=== PATIENT | female | born 1945 | race Caucasian/White ===

== ENCOUNTER 2022-05-19 10:08 | Emergency (ER) | payer MEDICARE, BC, SELFPAY ==
[2022-05-19 10:15] VITALS: BP 155/91; PULSE 81; RESP 20; TEMP 36.6; O2SAT 95; BMI 25.6
--- NOTE | 2022-05-19 10:27 | ED.GENADULT ---
HPI - General Adult General Time Seen by Provider: 10:29 Date Seen: 05/19/22 Chief complaint: GI Bleed Stated complaint: rectal bleeding from colonoscopy Time Seen by Provider: 05/19/22 10:27 Source: patient Mode of arrival: ambulatory Limitations: no limitations History of Present Illness HPI narrative: 76-year-old female who comes in today with rectal bleeding after colonoscopy. She had a colonoscopy 9 days ago and had some polyps removed. Was doing well until this morning when she passed a stool with some blood. This was formed stool with blood on the outside and some blood on the toilet paper. She also some left lower quadrant abdominal pain. She is not on any blood thinners, denies lightheadedness or dizziness and otherwise is feeling well. Related Data Home Medications Medication Instructions Recorded Confirmed amlodipine 5 mg tablet 5 mg PO DAILY 05/19/22 05/19/22 aspirin 81 mg chewable tablet 81 mg PO DAILY 05/19/22 05/19/22 (Aspirin Childrens) lisinopril 20 mg tablet 20 mg PO DAILY 05/19/22 05/19/22 Allergies Allergy/AdvReac Type Severity Reaction Status Date / Time erythromycin base Allergy Verified 05/19/22 10:20 [From Erythrocin] latex Allergy Verified 05/19/22 10:20 Review of Systems Status of ROS: Reports: 10 or more systems reviewed and unremarkable except as noted in History and below PFSH PFS Social History Smoking Status: Current every day smoker What tobacco products do you use: cigarettes Do you use any of these nicotine containing products: None Second hand tobacco smoke exposure: No How often do you have a drink containing alcohol: 4 or more times a week How many standard drinks containing alcohol do you have on a typical day: 1 or 2 How often do you have six or more drinks on one occasion: Never AUDIT-C Alcohol total score: 4 Non-prescribed substance use: denies use Exam Narrative: Exam Narrative: General: Well-developed and well-nourished, no acute distress Head: Atraumatic and normocephalic Eyes: Pupils are equal reactive, extraocular motions intact, conjunctiva clear ENT: External nose and ears are normal, posterior pharynx without erythema or exudate Neck: No midline cervical tenderness, full spontaneous range of motion the neck, trachea midline, no adenopathy Heart: Regular rate and rhythm no murmurs or thrills Lungs: Clear to auscultation bilaterally without wheezes or crackles Abdomen: Soft, mild left lower quadrant tenderness, nondistended with active bowel sounds Musculoskeletal: No tenderness, deformity, or edema Neurologic: Awake, alert, and oriented x3, no gross focal neurologic deficits, cranial nerves intact as tested Psych: Mood and affect are appropriate Skin: No rashes Const: Vital Signs, click to edit/add: Vital Signs - 24 hr 05/19/22 10:15 05/19/22 11:07 Temperature 97.8 F Pulse Rate [Pulse Oximeter] 81 68 Respiratory Rate 20 20 Blood Pressure [Ri ght Upper Arm] 155/91 H 150/81 H Pulse Oximetry 95 97 Oxygen Delivery Me thod Room Air Room Air Documenting provider has reviewed patient's vital signs: yes Course Course Hospital Course: Patient seen and examined, prior records are reviewed. Patient presents with left lower quadrant pain and an episode of blood in the stools. She has vital is stable, no lightheadedness or dizziness, no chest pain or shortness of breath to suggest anemia, CBC is ordered to evaluate. She does have some mild left lower quadrant tenderness, colitis or diverticulitis possible. Pain is not out of proportion, ischemic colitis is unlikely. Given that her polypectomy was over week ago, postoperative bleeding has little bit less likely as well. Labs and CTA are ordered to evaluate for source of bleeding. If labs are reassuring and no active blush on CTA, patient likely can be discharged expectant management and follow-up. Reevaluation(s) Reevaluation #1: Labs are reassuring including normal hemoglobin and normal white blood cell count parents CT scan demonstrates some colitis which is consistent with patient's symptoms. Given recent colonoscopy, the wall thickening of the rectum is unlikely to represent mass and is most consistent with infectious or inflammatory colitis. With recent instrumentation, patient will be started on antibiotics and close follow-up. Time: 13:31 Vital Signs Vital signs: Initial Vital Signs Temperature 97.8 F 05/19/22 10:15 Temperature Source Temporal Artery Scan 05/19/22 10:15 Pulse Rate 81 05/19/22 10:15 Respiratory Rate 20 05/19/22 10:15 Blood Pressure 155/91 H 05/19/22 10:15 Blood Pressure Mean 112 05/19/22 10:15 Blood Pressure Position Sitting 05/19/22 10:15 Pulse Oximetry 95 05/19/22 10:15 Oxygen Delivery Method 05/19/22 10:15 Vital Signs Temperature 97.8 F 05/19/22 10:15 Pulse Rate 81 05/19/22 10:15 Respiratory Rate 20 05/19/22 10:15 Blood Pressure 155/91 H 05/19/22 10:15 Pulse Oximetry 95 05/19/22 10:15 Oxygen Delivery Method 05/19/22 10:15 Temperature 97.8 F 05/19/22 10:15 Pulse Rate 68 05/19/22 11:07 Respiratory Rate 20 05/19/22 11:07 Blood Pressure 150/81 H 05/19/22 11:07 Pulse Oximetry 97 05/19/22 11:07 Oxygen Delivery Method 05/19/22 11:07 Medical Decision Making Medical Records Medical records reviewed: Yes I reviewed the patient's medical records Lab Data Lab results reviewed: Yes I reviewed the patient's lab results Labs: Lab Results 05/19/22 05/19/22 Range/Units 10:55 10:55 WBC 5.53 (4.50-11.00) K/uL RBC 4.50 (4.00-5.20) m/uL Hgb 14.9 (12.0-16.0) gm/dL Hct 44.7 (33.0-51.0) % MCV 99 (80-100) fL MCH 33 (26-34) pg MCHC 33 (32-36) gm/dL RDW Coeff of Betsy 12.2 (11.5-15.5) % Plt Count 265 (140-440) K/uL Neut % (Auto) 55.3 (42.0-72.0) % Lymph % (Auto) 30.6 (20-44) % [place] % (Auto) 12.8 H (0.0-11.0) % Eos % (Auto) 0.9 (0.0-7.0) % Baso % (Auto) 0.2 (0.0-3.0) % Neut # (Auto) 3.06 (1.7-7.0) K/uL Lymph # (Auto) 1.69 (0.90-2.90) K/uL [place] # (Auto) 0.70 (0.00-0.90) K/UL Eos # (Auto) 0.05 (0.00-0.50) K/uL Baso # (Auto) 0.01 (0.00-0.30) K/uL Abs Immat Gran (auto) 0.01 (0.00-0.30) K/uL Imm/Tot Granulo (auto) 0.2 % Sodium 130 L (135-149) mmol/L Potassium 4.2 (3.6-5.1) mmol/L Chloride 95 L (96-114) mmol/L Carbon Dioxide 28 (20-32) mmol/L BUN 12 (7-30) mg/dL Creatinine 0.5 (0.5-1.5) mg/dL Estimated Creat Clear 38.44 Estimated GFR 98 ml/min Glucose 96 (60-115) mg/dL Calcium 9.0 (8.4-10.6) mg/dL Imaging Data CT scan - abdomen: Attestation: I have reviewed the pertinent imaging results. Radiologist's impression: IMPRESSION: 1. Circumferential wall thickening of the rectum could be inflammatory versus underlying mass. Correlate with colonoscopy. 2. No other evidence of bowel inflammation or active bleeding. Colonic diverticulosis without diverticulitis. 3. Diffuse hepatic steatosis. Discharge Plan Discharge Clinical Impression: Colitis Patient Disposition: Home, Self-Care Condition: Stable Instructions: Colitis (ED) Additional Instructions: You may continue to have some blood in the stools for the next couple of days. If you develop fever, increased pain, or blood without formed stools, return to the emergency department. Take antibiotics as prescribed follow-up with your primary care doctor next week Activity Level: No Restrictions Discharge Diet: Regular Prescriptions: No Action amlodipine 5 mg tablet 5 mg PO DAILY lisinopril 20 mg tablet 20 mg PO DAILY aspirin [Aspirin Childrens] 81 mg tablet,chewable 81 mg PO DAILY Stand Alone Forms: [facility] Info Instructions
--- NOTE | 2022-05-19 10:45 | CRLHL7_ITS ---
For Patients: As a result of the Century Cures Act, medical imaging exams and procedure reports are released immediately into your electronic medical record. You may view this report before your referring provider. If you have questions, please contact your health care provider. INDICATION: Left lower quadrant pain, GI bleed, recent colonoscopy. TECHNIQUE: CT of the abdomen and pelvis acquired without and with 95 cc Isovue 370 IV contrast including arterial and portal venous phases according to the GI bleed protocol. Coronal and sagittal reconstructions. COMPARISON: None. FINDINGS: Diffuse hepatic steatosis. The gallbladder, spleen, pancreas, and adrenal glands are negative. No biliary dilation. Hepatic and portal veins are patent. Symmetric enhancement of the kidneys. Small right renal cyst. Tiny low-attenuation lesion in the lower pole of the left kidney is too small to characterize. No hydronephrosis or ureteral dilation. No obstructing urinary calculi identified. The bladder and uterus are normal in appearance. No adnexal mass. There is a 1.8 cm right sided vaginal cyst (series 9, image 128). No small bowel dilation. Moderate amount of stool throughout the colon. Colonic diverticulosis without evidence of diverticulitis. Negative appendix. Circumferential wall thickening of the rectum. No evidence of intraluminal blood products, active extravasation, or pneumatosis. No intraperitoneal free air or fluid. Tiny fat containing umbilical hernia. Aortoiliac vascular calcifications. No lymphadenopathy. Chronic appearing superior endplate compression fracture of L2. The lung bases are clear. IMPRESSION: 1. Circumferential wall thickening of the rectum could be inflammatory versus underlying mass. Correlate with colonoscopy. 2. No other evidence of bowel inflammation or active bleeding. Colonic diverticulosis without diverticulitis. 3. Diffuse hepatic steatosis. Please note that all CT scans at this facility use dose modulation, iterative reconstruction, and/or weight-based dosing when appropriate to reduce radiation dose to as low as reasonably achievable. Dictated by Lina Pathak MD @ 05/19/2022 1:08:02 PM (Electronically Signed)
[2022-05-19 11:03] LABS: Basophils Absolute Auto 0.01 K/uL (0.00-0.30); Basophils Percent Auto 0.2 % (0.0-3.0); Eosinophils Absolute Auto 0.05 K/uL (0.00-0.50); Eosinophils Percent Auto 0.9 % (0.0-7.0); Hematocrit 44.7 % (33.0-51.0); Hemoglobin* 14.9 gm/dL (12.0-16.0); Immature Granulocytes Abs Auto 0.01 K/uL (0.00-0.30); Immature Granulocytes Pct Auto 0.2 %; Lymphocytes Absolute Auto 1.69 K/uL (0.90-2.90); Lymphocytes Percent Auto 30.6 % (20-44); Mean Corpuscular HGB Conc 33 gm/dL (32-36); Mean Corpuscular Hemoglobin 33 pg (26-34); Mean Corpuscular Volume 99 fL (80-100); Monocytes Percent Auto 12.8 % (0.0-11.0); Neutrophils Absolute Auto 3.06 K/uL (1.7-7.0); Neutrophils Percent Auto 55.3 % (42.0-72.0); Platelet Count* 265 K/uL (140-440); RDW Coefficient of Variation % 12.2 % (11.5-15.5); White Blood Count* 5.53 K/uL (4.50-11.00)
[2022-05-19 11:07] VITALS: BP 150/81; PULSE 68; RESP 20; O2SAT 97
[2022-05-19 11:20] LABS: Slide Review Reflex No
[2022-05-19 11:34] LABS: Chloride* 95 mmol/L (96-114)
[2022-05-19 11:35] LABS: Potassium* 4.2 mmol/L (3.6-5.1); Sodium* 130 mmol/L (135-149)
[2022-05-19 11:37] LABS: Creatinine* 0.5 mg/dL (0.5-1.5); Est. Creatinine Clearance* 38.44; Estimated Glomerular Filt Rate 98 ml/min
[2022-05-19 11:38] LABS: Blood Urea Nitrogen* 12 mg/dL (7-30); Carbon Dioxide* 28 mmol/L (20-32); Glucose* 96 mg/dL (60-115)
[2022-05-19] MEDS: 0.9 % SODIUM CHLORIDE 500 ML 500 ML IV (12:32)
[2022-05-19 13:34] VITALS: BP 135/81; PULSE 72; RESP 18; TEMP 37; O2SAT 97
== END 2022-05-19 13:50 | disposition home or self-care (01) ==
PROVIDERS: Emergency Provider Family Medicine; PCP Family Medicine
DX: K52.9 Noninfective gastroenteritis and colitis, unspecified (principal)
CPT/HCPCS: 36415; 74178; 80048; 85025; 99284; J7120; Q9967

== ENCOUNTER 2022-10-16 18:37 | Emergency (ER) | payer MEDICARE, BC, SELFPAY ==
[2022-10-16 18:43] VITALS: BP 136/81; PULSE 69; RESP 18; TEMP 36; O2SAT 96; BMI 24.8
--- NOTE | 2022-10-16 19:27 | ED_ITS ---
HPI - General Adult General Chief complaint: Back Injury/Pain Stated complaint: Back and flank pain Time Seen by Provider: 10/16/22 19:15 History of Present Illness HPI narrative: This 77-year-old female comes in reporting low back pain for the past week or so. She states that she was bending over to clean the toilet and began to feel some tightness. This pain became more evident the next day and has persisted and somewhat worsened since then. She reports pain across her low back and a bit into her buttocks but not radiating down into her legs. She also reports some low abdominal pain and is suspicious of dysuria symptoms and possible urinary tract infection. She does not report any fevers, nausea, vomiting, or diarrhea. Related Data Home Medications Medication Instructions Recorded Confirmed amlodipine 5 mg tablet 5 mg PO DAILY 05/19/22 10/16/22 aspirin 81 mg chewable tablet 81 mg PO DAILY 05/19/22 10/16/22 (Aspirin Childrens) lisinopril 20 mg tablet 20 mg PO DAILY 05/19/22 10/16/22 Previous Rx's Medication Instructions Recorded cephalexin 500 mg capsule 500 mg PO TID 7 days #21 caps 10/16/22 tramadol 50 mg tablet 50 mg PO Q6H PRN pain #15 tabs 10/16/22 Allergies Allergy/AdvReac Type Severity Reaction Status Date / Time erythromycin base Allergy Verified 10/16/22 18:51 [From Erythrocin] latex Allergy Verified 10/16/22 18:51 Review of Systems Status of ROS: Reports: 10 or more systems reviewed and unremarkable except as noted in History and below Narrative: Constitutional: No fevers, no weight gain or loss. Eyes: No discharge. No vision changes. HENT: No congestion, no sore throat, no ear pain. Cardiovascular: No chest pain, no palpitations. Respiratory: No shortness of breath, no wheezes, no cough. Gastrointestinal: No vomiting, no diarrhea. Lower abdominal pain that is not present when remaining still but occurs with bending forward and when pressing in her lower abdomen. Genitourinary: No hematuria. Musculoskeletal: Normal range of motion. Pain across her low back as described above. Skin: No rashes, no pruritis. Neurological: No dizziness, weakness, sensory change, speech change. Endo/Heme/Allergies: No bruising or bleeding. No polydipsia. Pysch: no suicidality, no anxiety, no insomnia. All other systems reviewed and are negative. PFSH PFS Social History Smoking Status: Current every day smoker What tobacco products do you use: cigarettes Do you use any of these nicotine containing products: None Second hand tobacco smoke exposure: No How often do you have a drink containing alcohol: 4 or more times a week How many standard drinks containing alcohol do you have on a typical day: 1 or 2 How often do you have six or more drinks on one occasion: Never AUDIT-C Alcohol total score: 4 Non-prescribed substance use: denies use Exam Const: Vital Signs, click to edit/add: Vital Signs - 24 hr 10/16/22 18:43 10/16/22 19:29 Temperature 96.8 F L Pulse Rate [Right Pulse Oximeter] 69 82 Respiratory Rate 18 18 Blood Pressure [Ri ght Upper Arm] 136/81 129/86 Pulse Oximetry 96 98 Oxygen Delivery Me thod Room Air Room Air Course Vital Signs Vital signs: Initial Vital Signs Temperature 96.8 F L 10/16/22 18:43 Temperature Source Temporal Artery Scan 10/16/22 18:43 Pulse Rate 69 10/16/22 18:43 Respiratory Rate 18 10/16/22 18:43 Blood Pressure 136/81 10/16/22 18:43 Blood Pressure Mean 99 10/16/22 18:43 Blood Pressure Position Sitting 10/16/22 18:43 Pulse Oximetry 96 10/16/22 18:43 Oxygen Delivery Method Room Air 10/16/22 18:43 Vital Signs Temperature 96.8 F L 10/16/22 18:43 Pulse Rate 69 10/16/22 18:43 Respiratory Rate 18 10/16/22 18:43 Blood Pressure 136/81 10/16/22 18:43 Pulse Oximetry 96 10/16/22 18:43 Oxygen Delivery Method Room Air 10/16/22 18:43 Temperature 96.8 F L 10/16/22 18:43 Pulse Rate 82 10/16/22 19:29 Respiratory Rate 18 10/16/22 19:29 Blood Pressure 129/86 10/16/22 19:29 Pulse Oximetry 98 10/16/22 19:29 Oxygen Delivery Method Room Air 10/16/22 19:29 Medical Decision Making MDM Narrative Medical decision making narrative: This patient comes in reporting some low back pain over the past week but also has some abdominal pain and suspicion of dysuria symptoms. Her urinalysis does show symptoms suspicious for urinary tract infection. Her lab results otherwise are normal. Her low back pain is more likely muscle strain as it does radiate down into her buttocks. At the time of discharge the patient appears safe for outpatient management. The treatment plan is reviewed along with written and verbal return precautions. Reasons to return and the importance of close followup were also reviewed. She did received prescriptions for tramadol and Keflex. Lab Data Labs: Lab Results 10/16/22 Range/Units 19:40 WBC 7.00 (4.50-11.00) K/uL RBC 4.67 (4.00-5.20) m/uL Hgb 14.9 (12.0-16.0) gm/dL Hct 44.3 (33.0-51.0) % MCV 95 (80-100) fL MCH 32 (26-34) pg MCHC 34 (32-36) gm/dL RDW Coeff of Betsy 13.5 (11.5-15.5) % Plt Count 290 (140-440) K/uL Neut % (Auto) 64.9 (42.0-72.0) % Lymph % (Auto) 24.9 (20-44) % [place] % (Auto) 9.3 (0.0-11.0) % Eos % (Auto) 0.7 (0.0-7.0) % Baso % (Auto) 0.1 (0.0-3.0) % Neut # (Auto) 4.54 (1.7-7.0) K/uL Lymph # (Auto) 1.74 (0.90-2.90) K/uL [place] # (Auto) 0.70 (0.00-0.90) K/UL Eos # (Auto) 0.05 (0.00-0.50) K/uL Baso # (Auto) 0.01 (0.00-0.30) K/uL Sodium 130 L (135-149) mmol/L Potassium 4.3 (3.6-5.1) mmol/L Chloride 94 L (96-114) mmol/L Carbon Dioxide 29 (20-32) mmol/L BUN 12 (7-30) mg/dL Creatinine 0.4 L (0.5-1.5) mg/dL Estimated Creat Clear 39.59 Estimated GFR 103 ml/min Glucose 104 (60-115) mg/dL Calcium 10.1 (8.4-10.6) mg/dL Urine Color Yellow (Yellow) Urine Appearance Clear (Clear) Urine pH 5.5 (5.0-8.5) Ur Specific [place] 1.025 (1.000-1.030) Urine Protein 1+ A (Negative) Urine Glucose (UA) Negative (Negative) Urine Ketones 1+ A (Negative) Urine Blood Trace-intact A (Negative) Urine Nitrite Negative (Negative) Urine Bilirubin 1+ A (Negative) Urine Urobilinogen 0.2 (0.2-1.0) Ur Leukocyte Esterase Trace A (Negative) Urine RBC 0-2 (0-2) Urine WBC 5-10 A (0-5) Ur Squamous Epith Cells Few (None-Few) Urine Bacteria Few A (None) Urine Yeast Few A (None) Discharge Plan Discharge Clinical Impression: Urinary tract infection, Strain of lumbar region Patient Disposition: Home w/ Parent or Adult Condition: Unchanged Additional Instructions: Take medication as needed and indicated. Follow up with MD or return if worsening. Prescriptions: New tramadol 50 mg tablet 50 mg PO Q6H PRN (Reason: pain) Qty: 15 0RF cephalexin 500 mg capsule 500 mg PO TID 7 Days Qty: 21 0RF No Action amlodipine 5 mg tablet 5 mg PO DAILY lisinopril 20 mg tablet 20 mg PO DAILY aspirin [Aspirin Childrens] 81 mg tablet,chewable 81 mg PO DAILY Follow Up/Referrals: Dahiana Rosas MD [Primary Care Provider] - Stand Alone Forms: [facility] Info Instructions
[2022-10-16 19:29] VITALS: BP 129/86; PULSE 82; RESP 18; O2SAT 98
[2022-10-16 19:52] LABS: Appearance Urine Clear (Clear); Basophils Absolute Auto 0.01 K/uL (0.00-0.30); Basophils Percent Auto 0.1 % (0.0-3.0); Bilirubin Urine 1+ (Negative); Blood Urine Trace-intact (Negative); Color Urine Yellow (Yellow); Eosinophils Absolute Auto 0.05 K/uL (0.00-0.50); Eosinophils Percent Auto 0.7 % (0.0-7.0); Glucose Urine Negative (Negative); Hematocrit 44.3 % (33.0-51.0); Hemoglobin* 14.9 gm/dL (12.0-16.0); Immature Granulocytes Abs Auto 0.01 K/uL (0.00-0.30); Immature Granulocytes Pct Auto 0.1 %; Ketones Urine 1+ (Negative); Leukocyte Esterase Urine Trace (Negative); Lymphocytes Absolute Auto 1.74 K/uL (0.90-2.90); Lymphocytes Percent Auto 24.9 % (20-44); Mean Corpuscular HGB Conc 34 gm/dL (32-36); Mean Corpuscular Hemoglobin 32 pg (26-34); Mean Corpuscular Volume 95 fL (80-100); Monocytes Percent Auto 9.3 % (0.0-11.0); Neutrophils Absolute Auto 4.54 K/uL (1.7-7.0); Neutrophils Percent Auto 64.9 % (42.0-72.0); Nitrite Urine Negative (Negative); Platelet Count* 290 K/uL (140-440); Protein Urine 1+ (Negative); RDW Coefficient of Variation % 13.5 % (11.5-15.5); Red Blood Count 4.67 m/uL (4.00-5.20); Specific Gravity Urine 1.025 (1.000-1.030); Urobilinogen Urine 0.2 (0.2-1.0); pH Urine 5.5 (5.0-8.5)
[2022-10-16 19:56] LABS: Slide Review Reflex No
[2022-10-16 20:06] LABS: Bacteria Urine Few; RBC Urine 0-2 (0-2); Squamous Epithelial Cell Urine Few (None-Few)
[2022-10-16 20:14] LABS: Chloride* 94 mmol/L (96-114); Potassium* 4.3 mmol/L (3.6-5.1); Sodium* 130 mmol/L (135-149)
[2022-10-16 20:17] LABS: Blood Urea Nitrogen* 12 mg/dL (7-30); Calcium* 10.1 mg/dL (8.4-10.6); Carbon Dioxide* 29 mmol/L (20-32); Creatinine* 0.4 mg/dL (0.5-1.5); Est. Creatinine Clearance* 39.59; Estimated Glomerular Filt Rate 103 ml/min; Glucose* 104 mg/dL (60-115)
[2022-10-16] MEDS: TRAMADOL HCL 50 MG TABLET PO (20:36)
== END 2022-10-16 20:43 | disposition home or self-care (01) ==
PROVIDERS: Emergency Provider Emergency Medicine Emergency Medical Services; PCP Family Medicine
DX: N39.0 Urinary tract infection, site not specified (principal); S39.012A Strain of muscle, fascia and tendon of lower back, initial encounter
CPT/HCPCS: 36415; 80048; 81001; 85025; 87086; 99284; A9270

== ENCOUNTER 2022-11-08 14:34 | Emergency (ER) | payer MEDICARE, BC, SELFPAY ==
[2022-11-08 14:41] VITALS: BP 143/80; PULSE 59; RESP 16; TEMP 36.1; O2SAT 98; BMI 24.3
--- NOTE | 2022-11-08 15:10 | CRLHL7_ITS ---
For Patients: As a result of the Cures Act, medical imaging exams and procedure reports are released immediately into your electronic medical record. You may view this report before your referring provider. If you have questions, please contact your health care provider. Indication: Pain Technique: Three views of the sacrum and coccyx were acquired Comparison: Non specific this area. I have reviewed a pelvis x-ray December 06, 2019 Findings: Demineralization. Possible nondisplaced anterior cortical fracture of the mid sacrum as seen on the lateral view. Coccyx poorly seen. Degenerative changes of the spine. Atherosclerotic vascular calcification Impression: Marked demineralization. Possible nondisplaced anterior cortical fracture of the mid sacrum as seen on the lateral view only Dictated by Jordan Welch MD @ 11/08/2022 3:36:56 PM (Electronically Signed)
--- NOTE | 2022-11-08 15:12 | ED.GENADULT ---
HPI - General Adult General Time Seen by Provider: 15:12 Date Seen: 11/08/22 Chief complaint: Fall/Minor Trauma Stated complaint: Dizzy, Fell Time Seen by Provider: 11/08/22 14:45 Source: patient Mode of arrival: ambulatory Limitations: no limitations History of Present Illness HPI narrative: Donovan is a 77-year-old female past medical history includes hypertension, chronic lower back pain, not on any blood thinners presents emergency department from clinic after a fall. Per patient she was having a procedure done in clinic with OBGYN, she states she had a labiall cyst drained, procedure lasted 35-45 minute, when she got up she took a few steps for her clothes, she got weak in the legs and fell backwards, landing on her buttocks, falling back hitting the back of her head, patient states she had no LOC, per staff there was LOC. patient denies any chest pain or shortness of breath prior to the incident, of note patient has not had anything to eat today, she denies any head or neck pain, no upper back pain, she does have some pain in her tailbone. She was seen here not too long ago for some lower back pain. Pain is worse with leaning forward. No other concerns at this time Related Data Home Medications Medication Instructions Recorded Confirmed amlodipine 5 mg tablet 5 mg PO DAILY 05/19/22 10/16/22 aspirin 81 mg chewable tablet 81 mg PO DAILY 05/19/22 10/16/22 (Aspirin Childrens) lisinopril 20 mg tablet 20 mg PO DAILY 05/19/22 10/16/22 Previous Rx's Medication Instructions Recorded tramadol 50 mg tablet 50 mg PO Q6H PRN pain #15 tabs 10/16/22 Allergies Allergy/AdvReac Type Severity Reaction Status Date / Time erythromycin base Allergy Verified 11/08/22 12:46 [From Erythrocin] latex Allergy Verified 11/08/22 12:46 Review of Systems Status of ROS: Reports: 10 or more systems reviewed and unremarkable except as noted in History and below [facility] Surgical History (Updated 11/07/22 @ 09:28 by Yamini Rodriguez) History of hand surgery ?Z98.890 - Other specified postprocedural states (ICD-10) Social History Smoking Status: Current every day smoker What tobacco products do you use: cigarettes Do you use any of these nicotine containing products: None Second hand tobacco smoke exposure: No How often do you have a drink containing alcohol: 4 or more times a week How many standard drinks containing alcohol do you have on a typical day: 1 or 2 How often do you have six or more drinks on one occasion: Never AUDIT-C Alcohol total score: 4 Non-prescribed substance use: denies use Exam Narrative: Exam Narrative: General: Nontoxic in appearance, no obvious distress HEENT: Tympanic membranes within normal limits bilateral oropharynx is clear and moist, pupils equal round reactive to light. Head is atraumatic Neck: Nontender cervical spine Lungs: Diminished breath sounds but clear : Heart normal sinus rhythm S1-S2 Muscle skeletal: Mild tenderness to palpation the lower lumbar L5 and sacrum, coccyx area, no step-offs. : Abdomen soft nontender : Neuro: Awake and oriented x3 Const: Vital Signs, click to edit/add: Vital Signs - 24 hr 11/08/22 14:41 11/08/22 15:19 Temperature 96.9 F L Pulse Rate [Pulse Oximeter] 59 L Pulse Rate [orthos tatic lying] 60 Pulse Rate [orthos tatic sitting] 59 L Pulse Rate [orthos tatic standing] 56 L Respiratory Rate 16 Blood Pressure [Ri ght Upper Arm] 143/80 H Blood Pressure [or thostatic lying] 152/74 H Blood Pressure [or thostatic sitting] 157/86 H Blood Pressure [or thostatic standing ] 163/86 H Pulse Oximetry 98 Oxygen Delivery Me thod Room Air Course Course Hospital Course: Workup will include EKG, orthostatic vital signs, will obtain point of care troponin, CBC and metabolic panel based on her history of hyponatremia, patient has pain over her sacrum and her coccyx area will obtain x-ray imaging. Patient does not want anything for pain, will have her ambulate. Per provider up stairs and per patient he did not seem like a syncopal spell, more of weakness. Differential diagnosis include stroke, coronary disease, pneumonia heart failure. Other differential diagnosis include but not limited to electrolyte imbalances anemia medication reaction sepsis, UTI, viral illness. Reevaluation(s) Reevaluation #1: Possible nondisplaced fracture of the anterior cortical fracture the mid sacrum as seen on the lateral view. CBC showed no leukocytosis, no anemia, metabolic panel showed chronic hyponatremia, point of care troponin within normal limits, EKG showed a sinus bradycardia, bpm 54, septal infarct age undetermined no comparisons, patient was not orthostatic, patient was monitored in the emergency department did well, she was ambulating to and from the bathroom with no symptoms. Plan would be to discharge, daughter is here, she should follow up with primary care provider over the next 7-10 days, Tylenol 1 g every 4-6 hours as needed for pain. Return precautions given. Time: 16:56 Vital Signs Vital signs: Initial Vital Signs Temperature 96.9 F L 11/08/22 14:41 Temperature Source Temporal Artery Scan 11/08/22 14:41 Pulse Rate 59 L 11/08/22 14:41 Pulse Rhythm Regular 11/08/22 14:41 Pulse Strength 3+ Normal 11/08/22 14:41 Respiratory Rate 16 11/08/22 14:41 Blood Pressure 143/80 H 11/08/22 14:41 Blood Pressure Mean 101 11/08/22 14:41 Blood Pressure Position Sitting 11/08/22 14:41 Pulse Oximetry 98 11/08/22 14:41 Oxygen Delivery Method Room Air 11/08/22 14:41 Vital Signs Temperature 96.9 F L 11/08/22 14:41 Pulse Rate 59 L 11/08/22 14:41 Respiratory Rate 16 11/08/22 14:41 Blood Pressure 143/80 H 11/08/22 14:41 Pulse Oximetry 98 11/08/22 14:41 Oxygen Delivery Method Room Air 11/08/22 14:41 Temperature 96.9 F L 11/08/22 14:41 Pulse Rate 60 11/08/22 15:19 Respiratory Rate 16 11/08/22 14:41 Blood Pressure 152/74 H 11/08/22 15:19 Pulse Oximetry 98 11/08/22 14:41 Oxygen Delivery Method Room Air 11/08/22 14:41 Medical Decision Making Lab Data Labs: Lab Results 11/08/22 Range/Units 15:35 WBC 6.52 (4.50-11.00) K/uL RBC 4.41 (4.00-5.20) m/uL Hgb 14.3 (12.0-16.0) gm/dL Hct 42.7 (33.0-51.0) % MCV 97 (80-100) fL MCH 32 (26-34) pg MCHC 34 (32-36) gm/dL RDW Coeff of Betsy 13.8 (11.5-15.5) % Plt Count 285 (140-440) K/uL Neut % (Auto) 55.7 (42.0-72.0) % Lymph % (Auto) 33.1 (20-44) % Curry % (Auto) 10.1 (0.0-11.0) % Eos % (Auto) 0.9 (0.0-7.0) % Baso % (Auto) 0.2 (0.0-3.0) % Neut # (Auto) 3.63 (1.7-7.0) K/uL Lymph # (Auto) 2.16 (0.90-2.90) K/uL Curry # (Auto) 0.70 (0.00-0.90) K/UL Eos # (Auto) 0.06 (0.00-0.50) K/uL Baso # (Auto) 0.01 (0.00-0.30) K/uL Sodium 129 L (135-149) mmol/L Potassium 4.1 (3.6-5.1) mmol/L Chloride 97 (96-114) mmol/L Carbon Dioxide 27 (20-32) mmol/L BUN 10 (7-30) mg/dL Creatinine 0.4 L (0.5-1.5) mg/dL Estimated Creat Clear 39.59 Estimated GFR 103 ml/min Glucose 92 (60-115) mg/dL Calcium 9.3 (8.4-10.6) mg/dL POC Troponin I 0.03 (0.01-0.04) ng/ml Discharge Plan Discharge Clinical Impression: Weakness, Closed sacral fracture, Fall, Chronic hyponatremia Patient Disposition: Home, Self-Care Condition: Improved Instructions: Sacral Fracture (ED), Fall Prevention (ED) Additional Instructions: To follow up with primary care provider over the next 7-10 days, for ER followup and recheck. Return if worsening symptoms. Prescriptions: No Action tramadol 50 mg tablet 50 mg PO Q6H PRN (Reason: pain) Qty: 15 0RF amlodipine 5 mg tablet 5 mg PO DAILY lisinopril 20 mg tablet 20 mg PO DAILY aspirin [Aspirin Childrens] 81 mg tablet,chewable 81 mg PO DAILY Follow Up/Referrals: Dahiana Rosas MD [Primary Care Provider] - Stand Alone Forms: [employer] Info Instructions
[2022-11-08 15:19] VITALS: BP 152/74; BP 157/86; BP 163/86; PULSE 56; PULSE 59; PULSE 60
[2022-11-08 15:49] LABS: Basophils Absolute Auto 0.01 K/uL (0.00-0.30); Basophils Percent Auto 0.2 % (0.0-3.0); Eosinophils Absolute Auto 0.06 K/uL (0.00-0.50); Eosinophils Percent Auto 0.9 % (0.0-7.0); Hematocrit 42.7 % (33.0-51.0); Hemoglobin* 14.3 gm/dL (12.0-16.0); Lymphocytes Absolute Auto 2.16 K/uL (0.90-2.90); Lymphocytes Percent Auto 33.1 % (20-44); Mean Corpuscular HGB Conc 34 gm/dL (32-36); Mean Corpuscular Hemoglobin 32 pg (26-34); Mean Corpuscular Volume 97 fL (80-100); Monocytes Percent Auto 10.1 % (0.0-11.0); Neutrophils Absolute Auto 3.63 K/uL (1.7-7.0); Neutrophils Percent Auto 55.7 % (42.0-72.0); Platelet Count* 285 K/uL (140-440); RDW Coefficient of Variation % 13.8 % (11.5-15.5); Red Blood Count 4.41 m/uL (4.00-5.20); White Blood Count* 6.52 K/uL (4.50-11.00)
[2022-11-08 15:51] LABS: Slide Review Reflex No
[2022-11-08 15:54] LABS: Troponin, Point-of-Care* 0.03 ng/ml (0.01-0.04)
[2022-11-08 15:55] VITALS: BP 163/86; PULSE 60; O2SAT 99
[2022-11-08 16:03] LABS: Chloride* 97 mmol/L (96-114); Potassium* 4.1 mmol/L (3.6-5.1); Sodium* 129 mmol/L (135-149)
[2022-11-08 16:06] LABS: Blood Urea Nitrogen* 10 mg/dL (7-30); Carbon Dioxide* 27 mmol/L (20-32); Creatinine* 0.4 mg/dL (0.5-1.5); Est. Creatinine Clearance* 39.59; Estimated Glomerular Filt Rate 103 ml/min
[2022-11-08 16:07] LABS: Calcium* 9.3 mg/dL (8.4-10.6); Glucose* 92 mg/dL (60-115)
== END 2022-11-08 17:09 | disposition home or self-care (01) ==
PROVIDERS: Emergency Provider Student in an Organized Health Care Education/Training Program; PCP Family Medicine
DX: S32.10XA Unspecified fracture of sacrum, initial encounter for closed fracture (principal); W19.XXXA Unspecified fall, initial encounter; R53.1 Weakness; E87.1 Hypo-osmolality and hyponatremia
CPT/HCPCS: 36415; 72220; 80048; 84484; 85025; 87070; 93005; 99283; 99284; 99285

== ENCOUNTER 2023-01-12 08:30 | Outpatient (RCR) | payer MEDICARE, BC, SELFPAY | END 2023-02-09 15:18 | disposition home or self-care (01) | PROVIDERS: PCP Family Medicine; Visit Provider Family Medicine | DX: M54.50 Low back pain, unspecified (principal); Z51.89 Encounter for other specified aftercare | CPT/HCPCS: 97012; 97110; 97140; 97163 ==

== ENCOUNTER 2023-02-28 10:25 | Day surgery (SDC) | payer MEDICARE, BC, SELFPAY ==
[2023-02-28] MEDS: KETOROLAC OPHTH 0.5% 1 DROP EYE-RIGHT ×2 (10:30→10:35)
[2023-02-28] MEDS: TETRACAINE 0.5% OPHTH 1 DROP EYE-RIGHT ×2 (10:30→10:35)
[2023-02-28 10:36] VITALS: BP 136/77; PULSE 65; RESP 16; TEMP 36.7; O2SAT 95; BMI 23.1
--- NOTE | 2023-02-28 10:45 | SUR.PREOP ---
The eye drops brought by the patient (Ketorolac, Oflaxacin and Prednisolone) are examined and I have determined they are labeled by the patient's pharmacy for this patient as prescribed by the surgeon. The bottles are intact, recently obtained and appear to be correct.
[2023-02-28] MEDS: SODIUM CHLORIDE 0.9 % (FLUSH) 10 ML SYRINGE IVF (10:53)
--- NOTE | 2023-02-28 11:14 | W.ANESCHARGE ---
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
[2023-02-28] MEDS: TETRACAINE 0.5% OPHTH 2 DROP EYE-RIGHT (11:26)
--- NOTE | 2023-02-28 11:28 | P.ANES_ITS ---
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
[2023-02-28] MEDS: BALANCED SALT IRRIG SOLN 15 ML EYE-RIGHT (11:30)
[2023-02-28 11:58] VITALS: BP 153/84; PULSE 67; RESP 16; TEMP 36.6; O2SAT 97
--- NOTE | 2023-02-28 12:01 | P.OPTPRC_ITS ---
Procedure Note Date of procedure: 02/28/23 Will [facility] bill your pro fee for this procedure?: Yes Procedure Description: SURGEON: Kourtney Branch MD PREOPERATIVE DIAGNOSIS: Nuclear sclerotic cataract, right eye. POSTOPERATIVE DIAGNOSIS: Nuclear sclerotic cataract, right eye. NAME OF OPERATION: Phacoemulsification of cataract with posterior chamber intraocular lens implantation in the right eye. ANESTHESIA: Topical. ESTIMATED BLOOD LOSS: Less than 2 cc. COMPLICATIONS: None. PATHOLOGY SPECIMEN: None. INDICATIONS: See consult note for details. The risks, benefits and alternatives of the procedure were explained to the patient, who elected to proceed and s igned informed consent to do so. PROCEDURE: The patient was brought to the pre-holding area where the right eye was identified as the operative eye. I placed my initials above this eye. The patient received eye drops consisting of 0.5% tetracaine, 1% tropicamide, 10% phenylephrine, and 0.5% ketorolac. The patient was then brought to the operating room where the right eye was again identified as the operative eye. The eye was prepped with Betadine and draped in the usual sterile ophthalmic fashion. A #15 super-sharp blade was used to create a paracentesis site. 1% non-preserved intracameral lidocaine was injected into the anterior chamber. Endocoat was injected into the anterior chamber. A 2.4 mm keratome was used to create a three-plane self-sealing incision 1 mm anterior to the temporal limbus. A cystotome was used to create an anterior capsular leaflet. The Utrata forceps were used to extend this to form a continuous curvilinear capsulorrhexis. Hydrodissection was performed. The cataract was removed with phacoemulsification using the [id number] technique. The irrigation and aspiration tip was used to remove the remaining cortex. Healon was injected into the capsular bag. An HALEY ZCB00 intraocular lens of 21.5 diopters was injected into the capsular bag. The irrigation and aspiration tip was used to remove the remaining viscoelastic. Balanced salt solution on a cannula was used to hydrate the wound, and the wound was found to be watertight. The pupil was noted to be round. DISPOSITION: The patient was taken to the recovery room and discharged to home in stable condition. The patient was instructed to call me or go to the emergency department with any sudden change, including dramatic loss of vision, severe pain in the eye or eyebrow region, nausea, or vomiting. The patient will follow up in the clinic tomorrow morning.
--- NOTE | 2023-02-28 12:11 | SUR.PHASEII ---
The eye drops brought by the patient (Ketorolac and Prednisolone) are examined and I have determined they are labeled by the patient's pharmacy for this patient as prescribed by the surgeon. The bottles are intact, recently obtained and appear to be correct.
== END 2023-02-28 12:23 | disposition home or self-care (01) ==
LOC: OR 10:25
PROVIDERS: PCP Family Medicine; Visit Provider Ophthalmology
PROC: (CPT 66984; principal; 2023-02-28 10:30)
DX: H25.11 Age-related nuclear cataract, right eye (principal)
CPT/HCPCS: 66984; 142; 99100; A9270; J2250; J3010; V2632

== ENCOUNTER 2023-03-14 09:40 | Day surgery (SDC) | payer MEDICARE, BC, SELFPAY ==
[2023-03-14] MEDS: TETRACAINE 0.5% OPHTH 1 DROP EYE-LEFT ×2 (10:05→10:13)
[2023-03-14 10:08] VITALS: BMI 23.1
[2023-03-14 10:11] VITALS: BP 152/88; PULSE 72; RESP 16; TEMP 36.9; O2SAT 94
[2023-03-14] MEDS: KETOROLAC OPHTH 0.5% 1 DROP EYE-LEFT ×2 (10:11→10:23)
[2023-03-14] MEDS: SODIUM CHLORIDE 0.9 % (FLUSH) 10 ML SYRINGE IVF (10:22)
[2023-03-14] MEDS: TETRACAINE 0.5% OPHTH 2 DROP EYE-LEFT (10:55)
[2023-03-14] MEDS: BALANCED SALT IRRIG SOLN 15 ML EYE-LEFT (10:59)
[2023-03-14 11:20] VITALS: BP 150/85; PULSE 62; RESP 16; TEMP 36.4; O2SAT 98
--- NOTE | 2023-03-14 11:24 | P.ANES_ITS ---
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
--- NOTE | 2023-03-14 11:24 | W.PM.OPTPROC ---
Procedure Note Date of procedure: 03/14/23 Will [facility] bill your pro fee for this procedure?: Yes Procedure Description: SURGEON: Kourtney Branch MD PREOPERATIVE DIAGNOSIS: Nuclear sclerotic cataract, left eye. POSTOPERATIVE DIAGNOSIS: Nuclear sclerotic cataract, left eye. NAME OF OPERATION: Phacoemulsification of cataract with posterior chamber intraocular lens implantation in the left eye. ANESTHESIA: Topical. ESTIMATED BLOOD LOSS: Less than 2 cc. COMPLICATIONS: None. PATHOLOGY SPECIMEN: None. INDICATIONS: See consult note for details. The risks, benefits and alternatives of the procedure were explained to the patient, who elected to proceed and signed informed consent to do so. PROCEDURE: The patient was brought to the pre-holding area where the left eye was identified as the operative eye. I placed my initials above this eye. The patient received eye drops consisting of 0.5% tetracaine, 1% tropicamide, 10% phenylephrine, and 0.5% ketorolac. The patient was then brought to the operating room where the left eye was again identified as the operative eye. The eye was prepped with Betadine and draped in the usual sterile ophthalmic fashion. A #15 super-sharp blade was used to create a paracentesis site. 1% non-preserved intracameral lidocaine was injected into the anterior chamber. Endocoat was injected into the anterior chamber. A 2.4 mm keratome was used to create a three-plane self-sealing incision 1 mm anterior to the temporal limbus. A cystotome was used to create an anterior capsular leaflet. The Utrata forceps were used to extend this to form a continuous curvilinear capsulorrhexis. Hydrodissection was performed. The cataract was removed with phacoemulsification using the [id number] technique. The irrigation and aspiration tip was used to remove the remaining cortex. Healon was injected into the capsular bag. An HALEY ZCB00 intraocular lens of 22.5 diopters was injected into the capsular bag. The irrigation and aspiration tip was used to remove the remaining viscoelastic. Balanced salt solution on a cannula was used to hydrate the wound, and the wound was found to be watertight. The pupil was noted to be round. DISPOSITION: The patient was taken to the recovery room and discharged to home in stable condition. The patient was instructed to call me or go to the emergency department with any sudden change, including dramatic loss of vision, severe pain in the eye or eyebrow region, nausea, or vomiting. The patient will follow up in the clinic tomorrow morning.
== END 2023-03-14 12:01 | disposition home or self-care (01) ==
PROVIDERS: PCP Family Medicine; Visit Provider Ophthalmology
PROC: (CPT 66984; principal; 2023-03-14 09:45)
DX: H25.12 Age-related nuclear cataract, left eye (principal)
CPT/HCPCS: 66984; 00142; 99100; A9270; J2250; J3010; V2632

== ENCOUNTER 2024-05-20 17:16 | Emergency (ER) | payer MEDICARE, BC, SELFPAY ==
[2024-05-20] VITALS (23 sets, daily range): BP systolic 168–195; BP diastolic 93–119; PULSE 70–89; RESP 16–20; TEMP 37.1; O2SAT 90–97; BMI 23.2
--- NOTE | 2024-05-20 17:55 | CRLHL7_ITS ---
For Patients: As a result of the Century Cures Act, medical imaging exams and procedure reports are released immediately into your electronic medical record. You may view this report before your referring provider. If you have questions, please contact your health care provider. INDICATION: Chest and back pain. TECHNIQUE: CT chest without contrast and CT chest, abdomen and pelvis acquired with 95 cc of Isovue 370 IV contrast, dissection protocol. COMPARISON: CT abdomen and pelvis 05/19/2022. FINDINGS: CHEST: Cardiovascular structures: The unenhanced images demonstrate no evidence of aortic intramural thrombus. Thoracic aorta is normal in caliber without evidence of dissection. Heart size is normal. Mediastinum and azam: No mass or adenopathy. Lungs and pleura: Few scattered micro nodules. No suspicious nodule, consolidation, pleural effusion, or pneumothorax. Chest wall and axilla: No mass or adenopathy. Bones: Old manubrial and superior sternal fractures. Chronic severe T3 and [id number]-[id number] T6 compression fractures. ABDOMEN AND PELVIS: Liver: Unremarkable. Gallbladder and bile ducts: Unremarkable. Pancreas: Unremarkable. Spleen: Unremarkable. Adrenal glands: Unremarkable. Kidneys: Unremarkable. GI tract: Diverticulosis without pericolonic inflammation. No obstruction. Normal appendix. Vascular structures: Abdominal aorta is normal in caliber without evidence of dissection. Vyon-lv-hhgfxvyg atherosclerotic disease. Mesenteric arteries are patent. Lymph nodes: Unremarkable. Miscellaneous: Unremarkable. No free air or significant free fluid. Pelvic Organs: Unremarkable. Bones: Chronic yzva-ft-tnvfntay L1 compression fracture; however, it is new since the prior exam. Unchanged chronic mild L2 compression fracture. IMPRESSION: 1. No aortic dissection, aneurysm, or acute intramural hematoma. 2. No acute findings within the chest, abdomen, or pelvis. 3. Several nonacute findings, as above. Please note that all CT scans at this facility use dose modulation, iterative reconstruction, and/or weight-based dosing when appropriate to reduce radiation dose to as low as reasonably achievable. Dictated by Sebas Hunt MD @ 05/20/2024 7:24:44 PM (Electronically Signed)
--- NOTE | 2024-05-20 18:04 | ED.CHESTPAIN ---
HPI - Chest Pain General Date Seen: 05/20/24 Chief Complaint: Chest Pain Stated Complaint: chest pain, hypertension Time Seen by Provider: 05/20/24 17:18 Source: patient Mode of arrival: ambulatory Limitations: no limitations History of Present Illness HPI narrative: Patient is a 78-year-old female presenting to the emergency department for chest pain. She states this morning she noticed left lower chest pain right below her breast that has since moved to throughout her chest. She describes it as intermittently sharp in nature and been getting worse. She then noticed the pain has moved to her back. The pain in her back is about T5-T6 region. When asked about the back pain I specified if it feels like a tearing sensation and she did say yes. She also states her pain is worse when she takes a deep breath. She has no history of blood clots. Does have history of lower extremity swelling in the right leg is more swollen than the left but she states that is chronic for her and it is actually much improved compared to normal. Denies having chest pain like this before and no history of heart disease. She does have hypertension and was recently switched from amlodipine to a higher dose of lisinopril due to her lower extremity edema. This was about 2 weeks ago. Today was the 1st time she noticed her blood pressure is elevated usually in the 110 systolic. Denies lightheadedness, dizziness, weakness, numbness, fevers, chills. Her daughter is with her in states patient color appears normal and she has been acting at her mental baseline. Denies headache, lightheadedness, dizziness, weakness, numbness, abdominal pain, diarrhea, constipation, fevers, chills. Has been dealing with some sinusitis recently. Related Data Home Medications ?Medication ?Instructions ?Recorded ?Confirmed aspirin 81 mg chewable tablet 81 mg PO DAILY 05/19/22 05/20/24 (Aspirin Childrens) lisinopril 40 mg tablet 40 mg PO DAILY 05/20/24 05/20/24 Allergies Allergy/AdvReac Type Severity Reaction Status Date / Time chlorthalidone Allergy hypokalemia Verified 05/20/24 18:45 erythromycin base (From Allergy Verified 05/20/24 18:45 Erythrocin) hydrochlorothiazide Allergy hyponatremi Verified 05/20/24 18:45 a latex Allergy Verified 05/20/24 18:45 Review of Systems Status of ROS Reports: 10 or more systems reviewed and unremarkable except as noted in History and below [facility] Medical History Adenomatous colon polyp ?D12.6 - Benign neoplasm of colon, unspecified (ICD-10) Dermatitis ?L30.9 - Dermatitis, unspecified (ICD-10) Vitamin D deficiency ?E55.9 - Vitamin D deficiency, unspecified (ICD-10) Surgical History Abnormal colonoscopy ?R93.3 - Abnormal findings on diagnostic imaging of other parts of digestive tract (ICD-10) History of hand surgery ?Z98.890 - Other specified postprocedural states (ICD-10) Family History Other Coronary artery disease High cholesterol Stroke Social History Narrative: 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 She doesn't use recreational drugs. Smoking Status: Current every day smoker What tobacco products do you use: cigarettes Smoking packs per day: 1 Smoking cigarettes per day: 20.0 Do you use any of these nicotine containing products: None Second hand tobacco smoke exposure: No How often do you have a drink containing alcohol: 4 or more times a week Alcohol type: wine How many standard drinks containing alcohol do you have on a typical day: 1 or 2 How often do you have six or more drinks on one occasion: Never AUDIT-C Alcohol total score: 4 Non-prescribed substance use: denies use Caffeine: Yes Are you using contraception or practicing any form of control: No service: No Exam Narrative Exam Narrative: Const: Well-nourished, Well-developed, in mild distress Eyes: PERRL, no conjunctival injection, and symmetrical lids HENT: Atraumatic external nose and ears. Moist mucous membranes. Neck: Symmetric, trachea midline, No thyromegaly. CVS: RRR, No murmurs or gallops. Peripheral pulses 2+ and equal in all extremities RESP: Unlabored respiratory effort. Clear to auscultation bilaterally. GI: Nontender/Nondistended, No rebound or guarding. MSK:Extremities w/o deformity, Normal Active ROM, chest and mid back pain that is reproducible upon palpation Skin: Warm, Dry. No rashes or lesions. Neuro: Normal Muscle tone, No focal neurological deficits. Psych: Awake, Alert, & Oriented x3. Appropriate mood and affect. Const Vital Signs, click to edit/add: Vital Signs - 24 hr 05/20/24 17:23 05/20/24 17:29 05/20/24 17:30 Temperature 98.8 F Pulse Rate 78 Pulse Rate [Right Pulse Oximeter] 78 77 Pulse Rate [Right Radial] 73 Respiratory Rate 18 20 20 Blood Pressure 195/103 H Blood Pressure [Right Upper Arm] 195/103 H 173/99 H Pulse Oximetry 93 95 97 Oxygen Delivery Method Room Air Room Air 05/20/24 17:30 05/20/24 17:33 05/20/24 17:45 Temperature Pulse Rate 78 76 73 Pulse Rate [Right Pulse Oximeter] Pulse Rate [Right Radial] Respiratory Rate Blood Pressure 173/99 H Blood Pressure [Right Upper Arm] Pulse Oximetry 97 96 95 Oxygen Delivery Method 05/20/24 17:47 05/20/24 18:00 05/20/24 18:02 Temperature Pulse Rate 72 73 71 Pulse Rate [Right Pulse Oximeter] Pulse Rate [Right Radial] Respiratory Rate Blood Pressure 179/93 H 169/95 H Blood Pressure [Right Upper Arm] Pulse Oximetry 96 96 97 Oxygen Delivery Method 05/20/24 18:15 05/20/24 18:30 05/20/24 18:32 Temperature Pulse Rate 70 86 85 Pulse Rate [Right Pulse Oximeter] Pulse Rate [Right Radial] Respiratory Rate 20 Blood Pressure 178/104 H Blood Pressure [Right Upper Arm] Pulse Oximetry 96 95 93 Oxygen Delivery Method Room Air 05/20/24 19:05 05/20/24 19:06 05/20/24 19:15 Temperature Pulse Rate 89 88 80 Pulse Rate [Right Pulse Oximeter] Pulse Rate [Right Radial] Respiratory Rate Blood Pressure 187/119 H Blood Pressure [Right Upper Arm] Pulse Oximetry 90 93 94 Oxygen Delivery Method 05/20/24 19:17 05/20/24 19:30 05/20/24 19:34 Temperature Pulse Rate 76 88 81 Pulse Rate [Right Pulse Oximeter] Pulse Rate [Right Radial] Respiratory Rate Blood Pressure 168/97 H Blood Pressure [Right Upper Arm] Pulse Oximetry 94 92 96 Oxygen Delivery Method 05/20/24 19:45 05/20/24 19:47 05/20/24 20:00 Temperature Pulse Rate 72 77 74 Pulse Rate [Right Pulse Oximeter] Pulse Rate [Right Radial] Respiratory Rate Blood Pressure 177/97 H Blood Pressure [Right Upper Arm] Pulse Oximetry 95 96 95 Oxygen Delivery Method 05/20/24 20:02 05/20/24 20:15 05/20/24 20:18 Temperature Pulse Rate 73 74 70 Pulse Rate [Right Pulse Oximeter] Pulse Rate [Right Radial] Respiratory Rate 16 Blood Pressure 176/100 H 169/97 H Blood Pressure [Right Upper Arm] Pulse Oximetry 94 93 94 Oxygen Delivery Method Room Air Course Vital Signs Vital signs: Initial Vital Signs Temperature 98.8 F 05/20/24 17:23 Temperature Source Temporal Artery Scan 05/20/24 17:23 Pulse Rate 78 05/20/24 17:23 Pulse Rhythm Regular 05/20/24 17:23 Respiratory Rate 18 05/20/24 17:23 Blood Pressure 195/103 H 05/20/24 17:23 Blood Pressure Mean 133 H 05/20/24 17:23 Blood Pressure Position Supine 05/20/24 17:23 Pulse Oximetry 93 05/20/24 17:23 Oxygen Delivery Method Room Air 05/20/24 17:23 Vital Signs Temperature 98.8 F 05/20/24 17:23 Pulse Rate 78 05/20/24 17:23 Respiratory Rate 18 05/20/24 17:23 Blood Pressure 195/103 H 05/20/24 17:23 Pulse Oximetry 93 05/20/24 17:23 Oxygen Delivery Method Room Air 05/20/24 17:23 Temperature 98.8 F 05/20/24 17:23 Pulse Rate 70 05/20/24 20:18 Respiratory Rate 16 05/20/24 20:02 Blood Pressure 169/97 H 05/20/24 20:18 Pulse Oximetry 94 05/20/24 20:18 Oxygen Delivery Method Room Air 05/20/24 20:02 MDM - Chest Pain MDM Narrative Medical decision making narrative: Patient is a 78-year-old female presenting to the emergency department for chest pain. The differential diagnosis of chest pain is broad and includes common etiologies such as musculoskeletal strain, GERD, pneumonia, etc. More serious etiologies considered include PE, coronary artery disease, pneumothorax, aortic dissection, aortic aneurysm. At this time it seems like her chest pain is musculoskeletal due to the reproduction with palpation but I will do an EKG and troponin to check for signs of ACS. With the chest pain with deep breaths and lower extremity edema I did consider up PE. She is also having as she describes a tearing sensation in her back which also makes me concern for dissection. We are unable to do both CTs and 1 in the severe want to check both it would require 2 doses of contrast which at her age would not be advisable considering she appears stable at this time. I did do a bedside ultrasound and was unable to load the images up to the system but does able to do as subxiphoid view that, while blurry, but does appear show good squeeze of both ventricles. Considering she has also not hypoxic or tachycardic along with this good squeeze seen on the ultrasound makes me think a PE is less likely and that a dissection study would be more beneficial. I had a long conversation with the patient and her daughter about this and they are agreeable to this plan. CBC shows elevated white count of 15.73. Her unsure why this is elevated at this time will continue look for signs of infection. D-dimer is within normal limits for age adjustment and PE is the unlikely. This is reassuring since I was unable to do a PE study. Her sodium and chloride are both low but this is normal for her based on chart review. Unlikely to be causing any symptoms. COVID/flu/RSV is negative. Initial troponin EKG showed no concerning findings. Will repeat the troponin. CTA results returned showing no acute intrathoracic, abdominal or pelvic abnormalities. She does have a history of chronic sinusitis and I asked if this made any changes recently and she states no. Is draining clear fluid. Unlikely to be bacterial sinusitis at this time. Repeat troponin also within normal limits. At this point I cannot say for sure was causing chest pain but do not see any acute emergent issues. I am not sure why she has this elevated white count but do not see any other acute signs of infection. I am hesitant to start her on any antibiotics as I do not have any other sign of infection. I did inform to have close follow-up with the primary care provider and likely recheck these lab works. She is agreeable to this plan. I did inform her about these lumbar fractures that appear to be chronic. Lab Data Labs: Lab Results 05/20/24 05/20/24 05/20/24 Range/Units 17:30 17:56 18:15 WBC 15.73 H (4.50-11.00) K/uL RBC 4.43 (4.00-5.20) m/uL Hgb 14.3 (12.0-16.0) gm/dL Hct 43.5 (33.0-51.0) % MCV 98 (80-100) fL MCH 32 (26-34) pg MCHC 33 (32-36) gm/dL RDW Coeff of Betsy 12.4 (11.5-15.5) % Plt Count 264 (140-440) K/uL Neut % (Auto) 82.6 H (42.0-72.0) % Lymph % (Auto) 8.4 L (20-44) % Bucks % (Auto) 8.5 (0.0-11.0) % Eos % (Auto) 0.2 (0.0-7.0) % Baso % (Auto) 0.2 (0.0-3.0) % Neut # (Auto) 13.00 H (1.7-7.0) K/uL Lymph # (Auto) 1.30 (0.90-2.90) K/uL Bucks # (Auto) 1.30 H (0.00-0.90) K/UL Eos # (Auto) 0.00 (0.00-0.50) K/uL Baso # (Auto) 0.00 (0.00-0.30) K/uL Abs Immat Gran (auto) 0.00 (0.00-0.30) K/uL Imm/Tot Granulo (auto) 0.1 % D-Dimer Quant (PE/DVT) 0.63 H (0.00-0.50) ug/ml Sodium 128 L (135-149) mmol/L Potassium 3.6 (3.6-5.1) mmol/L Chloride 92 L (96-114) mmol/L Carbon Dioxide 29 (20-32) mmol/L Anion Gap 7 (7-15) mEq/L BUN 10 (7-30) mg/dL Creatinine 0.4 L (0.5-1.5) mg/dL Estimated Creat Clear 35.55 Estimated GFR 102 ml/min Glucose 112 (60-115) mg/dL Calcium 9.2 (8.4-10.6) mg/dL Magnesium 2.1 (1.5-2.6) mg/dL Troponin I < 0.01 L (0.01-0.04) ng/mL SARS-CoV-2 (PCR) Negative SARS-CoV-2 (Negative) Influenza Type A (PCR) Negative PCR FLU A (Negative) Influenza Type B (PCR) Negative PCR FLU B (Negative) RSV (PCR) Negative PCR RSV (Negative) POC Creatinine (0.6-1.3) mg/dl POC Troponin I 0.00 L (0.01-0.04) ng/ml 05/20/24 05/20/24 Range/Units 18:34 19:56 WBC (4.50-11.00) K/uL RBC (4.00-5.20) m/uL Hgb (12.0-16.0) gm/dL Hct (33.0-51.0) % MCV (80-100) fL MCH (26-34) pg MCHC (32-36) gm/dL RDW Coeff of Betsy (11.5-15.5) % Plt Count (140-440) K/uL Neut % (Auto) (42.0-72.0) % Lymph % (Auto) (20-44) % Bucks % (Auto) (0.0-11.0) % Eos % (Auto) (0.0-7.0) % Baso % (Auto) (0.0-3.0) % Neut # (Auto) (1.7-7.0) K/uL Lymph # (Auto) (0.90-2.90) K/uL Bucks # (Auto) (0.00-0.90) K/UL Eos # (Auto) (0.00-0.50) K/uL Baso # (Auto) (0.00-0.30) K/uL Abs Immat Gran (auto) (0.00-0.30) K/uL Imm/Tot Granulo (auto) % D-Dimer Quant (PE/DVT) (0.00-0.50) ug/ml Sodium (135-149) mmol/L Potassium (3.6-5.1) mmol/L Chloride (96-114) mmol/L Carbon Dioxide (20-32) mmol/L Anion Gap (7-15) mEq/L BUN (7-30) mg/dL Creatinine (0.5-1.5) mg/dL Estimated Creat Clear Estimated GFR ml/min Glucose (60-115) mg/dL Calcium (8.4-10.6) mg/dL Magnesium (1.5-2.6) mg/dL Troponin I (0.01-0.04) ng/mL SARS-CoV-2 (PCR) (Negative) Influenza Type A (PCR) (Negative) Influenza Type B (PCR) (Negative) RSV (PCR) (Negative) POC Creatinine 0.4 L (0.6-1.3) mg/dl POC Troponin I 0.00 L (0.01-0.04) ng/ml Imaging Data CTA chest abdomen pelvis: Attestation: I have reviewed the pertinent imaging results. Radiologist's impression: 1. No aortic dissection, aneurysm, or acute intramural hematoma. 2. No acute findings within the chest, abdomen, or pelvis. 3. Several nonacute findings, as above. Please note that all CT scans at this facility use dose modulation, iterative reconstruction, and/or weight-based dosing when appropriate to reduce radiation dose to as low as reasonably achievable. Dictated by Sebas Hunt MD @ 05/20/2024 7:24:44 PM ECG Data Attestation: I personally reviewed and interpreted this ECG as follows: Prior ECG tracings: available for review Interpretation: Normal sinus rhythm with a rate of 81 beats per minute, normal intervals, normal axis, no ST or T-wave abnormalities. Appears similar previous EKG on file. Discharge Plan Discharge Clinical Impression: Atypical chest pain Instructions: Noncardiac Chest Pain (ED) Additional Instructions: You can take Tylenol and ibuprofen for pain. I recommend following up with her primary care provider tomorrow if symptoms are persisting. Inform them that your in the emergency department today and we evaluated you for pneumothorax, pneumonia, aortic dissection, pulmonary embolism, ACS and everything came back normal. The only abnormality was this elevated white count which I do recommend you have recheck. If you develop worsening symptoms return for re-evaluation. Also speak to your primary care provider about your low sodium. Prescriptions: No Action aspirin [Aspirin Childrens] 81 mg tablet,chewable 81 mg PO DAILY lisinopril 40 mg tablet 40 mg PO DAILY Follow Up/Referrals: Dahiana Rosas MD [Primary Care Provider] - Stand Alone Forms: DoseMe Info Instructions
[2024-05-20 18:12] LABS: PCR FLU A Negative PCR FLU A (Negative); PCR FLU B Negative PCR FLU B (Negative); PCR RSV Negative PCR RSV (Negative); SARS PCR* Negative SARS-CoV-2 (Negative)
[2024-05-20 18:26] LABS: Basophils Percent Auto 0.2 % (0.0-3.0); Eosinophils Percent Auto 0.2 % (0.0-7.0); Hematocrit 43.5 % (33.0-51.0); Hemoglobin* 14.3 gm/dL (12.0-16.0); Immature Granulocytes Pct Auto 0.1 %; Lymphocytes Percent Auto 8.4 % (20-44); Mean Corpuscular HGB Conc 33 gm/dL (32-36); Mean Corpuscular Hemoglobin 32 pg (26-34); Mean Corpuscular Volume 98 fL (80-100); Monocytes Percent Auto 8.5 % (0.0-11.0); Neutrophils Percent Auto 82.6 % (42.0-72.0); Platelet Count* 264 K/uL (140-440); RDW Coefficient of Variation % 12.4 % (11.5-15.5); Red Blood Count 4.43 m/uL (4.00-5.20); White Blood Count* 15.73 K/uL (4.50-11.00)
--- OUTSIDE RECORDS SUMMARY | 2024-05-20 18:32 | XMS_ITS | Clinical Summary ---
Author Organization [employer] [facility] Address [place], [place] [address] Care Team Providers Care Music Department Chair Name Role Phone Santy Norris Raj Unavailable [phone] Dahiana Rosas MD Primary Care Provider Jose Maria Skinner MD Unavailable [phone] Allergies Active Allergy Reactions Criticality Noted Date Comments Chlorthalidone Other - Describe In Comment Field 09/23/2010 Hypokalemia Erythromycin 09/23/2010 Hydrochlorothiazide Hyponatremia 10/18/2010 Latex Rash 06/21/2012 Slight red itchy hands from latex gloves Medications Medication Sig Dispensed Refills Start Date End Date Status aspirin chewable 81 mg chewable tablet 1 daily 1 0 06/16/2009 Active FLUoxetine (PROZAC) 10 mg capsuleIndications :Depression, recurrent (HC) Take 1 Capsule (10 mg) by mouth once daily in the morning. 90 Capsule 3 04/30/2024 Active alendronate (FOSAMAX) 70 mg tabletIndications: Osteoporosis, unspecified osteoporosis type, unspecified pathological fracture presence Take 1 Tablet (70 mg) by mouth once a week in the morning. Take on empty stomach with full glass of water. Do not lie down for 1 hr. 12 Tablet 3 04/30/2024 Active lisinopriL (PRINIVIL; ZESTRIL) 40 mg tabletIndications: Hypertension, unspecified type Take 1 Tablet (40 mg) by mouth once daily. 90 Tablet 3 04/30/2024 Active traMADoL (ULTRAM) 50 mg tabletIndications: Closed fracture of sacrum with routine healing, unspecified portion of sacrum, subsequent encounter Take 1 Tablet (50 mg) by mouth once daily if needed (Severe pain). 8 Tablet 12/15/2022 04/30/2024 Discontinued (*Patient states no longer taking) alendronate (FOSAMAX) 70 mg tabletIndications: Osteoporosis, unspecified osteoporosis type, unspecified pathological fracture presence Take 1 Tablet (70 mg) by mouth once a week in the morning. Take on empty stomach with full glass of water. Do not lie down for 1 hr. 12 Tablet 3 01/08/2023 04/30/2024 Discontinued (Reorder (E-cancel not sent)) lisinopriL (PRINIVIL; ZESTRIL) 20 mg tabletIndications: Hypertension, unspecified type Take 1 Tablet (20 mg) by mouth once daily. 90 Tablet 01/20/2024 04/30/2024 Discontinued (Reorder (E-cancel not sent)) amLODIPine (NORVASC) 5 mg tabletIndications: Hypertension, unspecified type Take 1 Tablet (5 mg) by mouth once daily. 90 Tablet 01/20/2024 04/30/2024 Discontinued (Reorder (E-cancel not sent)) amLODIPine (NORVASC) 5 mg tabletIndications: Hypertension, unspecified type Take 1 Tablet (5 mg) by mouth once daily. 90 Tablet 3 04/30/2024 04/30/2024 Discontinued (*Allergic/A dverse Rxn/Side Effects) lisinopriL (PRINIVIL; ZESTRIL) 20 mg tabletIndications: Hypertension, unspecified type Take 1 Tablet (20 mg) by mouth once daily. 90 Tablet 3 04/30/2024 04/30/2024 Discontinued (*Medication adjustment) Active Problems Problem Noted Date Diagnosed Date Depression, recurrent 01/05/2022 Adenomatous colon polyp 11/26/2014 Overview (05/16/2022): Colonoscopy 11/2014 multiple large polyps, a large polyp at 25 cm was unresectable and will need to be removed with surgery Colonoscopy 04/2022 large TA, repeat in 3 years Dermatitis 11/03/2010 Overview (11/03/2010): suspect psoriasis Tobacco use disorder 10/05/2010 Elevated glucose 09/30/2010 Vitamin D deficiency 07/01/2009 Hypertension Encounters Date Type Department Care Team Description 04/30/2024 3:00 PM CDT Ancillary Procedure [facility] [address] [facility] [id number] 04/30/2024 2:00 PM CDT Office Visit [facility] [address] [place] [address] Dahiana Rosas MD Medicare ANNUAL (subsequent) Visit (78 yr/Bump on right arm near elbow/Right ankle swelling/Mental health; Anxiety and Depression/Has not started fosamax) 04/30/2024 Travel 04/28/2024 Refill [facility] [address] [facility] [id number] Dahiana Rosas MD Refill Request (Lisinopril, Amlodipine) from Last 3 Months Immunizations Name Administration Dates Next Due COVID-19 vaccine ([employer] 30mcg/0.3mL) GRAZYNA FUNK 10/05/2020,09/14/2020 Hepatitis B (Adult) 12/03/2000,06/20/2000,1999 Influenza, High-dose Quadriv alent Inactivated 04/18/2022 Influenza, IIV3 (Age >=3 years) 06/21/2012,04/15 Influenza, IIV4 08/12/2019,06/21/2012 Influenza, Inactivated IIV3 (Age 65+ Years) Preserv Free 08/12/2019 Pneumococcal Poly,23-Valent (Pneumovax) 09/16/19 14 Pneumococcal conj 13-Valent (Prevnar 13) 015 Td (Age >=7 Years) 06/03/2009 Td, Preservative Free (age >= 7 Years) 9 Tdap 09/23/2010 Family History Medical History Relation Name Comments Diabetes Brother Cancer Father prostate a t 78 of CVA Heart Disease Mother [place] 2008 Hypertension Mother at 89, with rap id heart beat. Anesthesia Problem No Family History Blood Disease No Family History Cancer-breast No Family History Relation Name Status Comments Brother Father Mother Social History Tobacco Use Types Packs/Day Years Used Date Smoking Tobacco: Every Day Cigarettes 1 57.8 Started: 1965 Smokeless Tobacco: Never Tobacco Cessation:Ready to Q uit: No; Counseling Given: No Comments:in the process of quitting, 20 cigarettes a day Alcohol Use Standard Drinks/Week Comments Yes 0 (1 standard drink = 0.6 oz pure alcohol) 1-2 glasses wine several days a week. PHQ-2 Answer Date Recorded PHQ-2 TOTAL SCORE 3 04/30/2024 Social Connections Answer Date Recorded Do you often feel lonely or isolated from those around you? 4 04/30/2024 Alcohol Use Answer Date Recorded How often do you have a drink containing alcohol ? 4 01/05/2022 How many drinks containing a lcohol do you have on a typical day when you are drinking? 0 01/05/2022 How often do you have five or more drinks on one occasion? 0 01/05/2022 Financial Resource Strain Answer Date R ecorded Difficulty of Paying Living Expenses 2 04/30/2024 Difficulty of Paying Living Expenses 1 04/30/2024 Food Insecurity Answer Date Recorded Do you worry your food will run out before you are able to buy more? 1 04/30/2024 Transportation Needs Answer Date Record ed Does lack of transportation keep you from medica l appointments? 1 04/30/2024 Does lack of transportation keep you from work, meetings or getting things that you need? 1 04/30/2024 Housing Stability Answer Date Recorded What is your housing situation today? 1 04/30/2024 Sex and Gender Information Value Date Recorded Sex Assigned at Not on file Gender Identity Not on file Sexual Orientation Not on file Obstetrics History Last Filed Vital Signs Vital Sign Reading Time Taken Comments Blood Pressure 117/76 04/30/2024 2:10 PM CDT Pulse 82 04/30/2024 2:10 PM CDT Temperature 36.6 ??C (97.8 ??F) 06/10/2018 11:[address] Respiratory Rate 14 02/02/2015 9:55 AM CDT Oxygen Saturation 98% 04/30/2024 2:10 PM CDT Inhaled Oxygen Concentration - - Weight 56.5 kg (124 lb 9.6 oz) 04/30/2024 2:10 P M CDT Height 156.2 cm (5' 1.5) 04/30/2024 2:10 PM CDT Body Mass Index 23.16 04/30/2024 2:10 PM CDT Plan of Treatment Upcoming Encounters Date Type Department Care Team (Late st Contact Info) Description 05/28/2024 1:10 PM DEVELOPMENT EXPERT Office Visit [facility] [address] [place] [address] Dahiana Rosas MD [address] [place] [address] Health Maintenance Due Date Last Done Comments Zoster (shingles) series for age 50+ (1 of 2) 1996 Tetanus booster 09/23/2020 09/23/2010, 05/16, 06/03/2009 RSV vaccine for adults or (1 - 1-dose 75+ series) 2021 COVID-19 vaccine series ( season) 2024 04/18/2022, 11/29/2021, 05/24/2021, Additional history exists Influenza for age 65+ 03/16/2024 04/18/2022 , 08/12/2019, 08/12/2019, Additional history exists BMI (ht and wt on same day) for age 18+ 04/30/2025 04/30/2024, 01/08/2023, 01/05/2022, Additional history exists Depression screening for age 12+ 04/30/2025 04/30/2024, 01/08/2023, 01/05/2022, Additional history exists Low Dose CT (for lung CA) ag e 50-80 04/30/2025 04/30/2024, 01/18/2023 Medicare Wellness for age 65+ 05/01/2025, 01/08/2023, 01/05/2022, Additional history exists Tdap Completed 09/23/2010 Pneumococcal series for age 65+ Completed 5, 09/15/2013 Hepatitis C screening for ag e 18-79 Completed 08/12/2019 DEXA/DXA scan for age 65+ Completed 11/30/2022, 09/2001 Procedures Procedure Name Priority Date/Time Associated Diagnosis Comments CT CHEST SCREENING LOW DOSE WO CONTRAST Routine 04/30/2024 3:20 PM CDT Personal history of nicotine dependence BASIC METABOLIC PANEL Routine 04/30/2024 3:20 PM CDT Hypertension, unspecified type Screening for diabetes mellitus (DM) XR DXA BONE DENSITY 2 SITES AXIAL Routine 11/30/2022 9:54 AM CDT Closed fracture of sacrum with routine healing, unspecified portion of sacrum, subsequent encounter Postmenopausal ANTI HCV Routine 08/12/2019 2:21 PM DEVELOPMENT EXPERT Need for hepatitis C screening test from Last 3 Months or Most Recently Relevant to Health Maintenance Results * CT CHEST SCREENING LOW DOSE WO CONTRAST [[id number]] -- Criteria: must meet ALL: Age 50-80, current smoker or quit within the last 15 years, AND 20+ pack-year history (04/30/2024 3:20 PM CDT) Anatomical Region Laterality Modality Computed Tomogra phy Impressions 05/01/2024 8:51 AM CDT 1. Multiple small pulmonary nodules. Lung-RADS Category 2, benign. Continue annual screening with low-dose chest CT in 12 months. 2. New chronic appearing T6 compression fracture. Multilevel compression fractures are otherwise not significantly changed. Please note that all CT scans at this facility use dose modulation, iterative reconstruction and/or weight-based dosing when appropriate to reduce radiation dose to as low as reasonably achievable. ?? Dictated by: Derik Foote MD @04/30/2024 6:41:06 PM /sp Neuroradiologist Narrative 05/01/2024 8:51 AM CDT For Patients: As a result of the Century Cures Act, medical imaging exams and procedure reports are released immediately into your electronic medical record. ??You may view this report before your referring provider. ?? If you have questions, please contact your health care provider. CT CHEST SCREENING LOW-DOSE WITHOUT CONTRAST 04/30/2024 INDICATION: Lung cancer screening. TECHNIQUE: Non-contrast CT images of the chest. COMPARISON: CT chest 01/18/2023. FINDINGS: Biapical scarring and nodularity, not significantly changed. Mild upper lobe predominant centrilobular and paraseptal emphysema. No focal consolidation, pleural effusion, or pneumothorax. Multiple solid pulmonary nodules in both lungs, measuring up to 4 mm in the right middle lobe (series 5 image 90) and 3 mm in the left lower lobe (series 5 image 88), not significantly changed. Heart size is normal. No pericardial effusion. Coronary artery atherosclerotic calcifications. No mediastinal or hilar lymphadenopathy. Limited images of the upper abdomen are unremarkable. Small Bochdalek hernias bilaterally. Multilevel thoracic spondylosis. Exaggerated thoracic kyphosis. Diffuse osseous demineralization. New moderate chronic appearing T6 compression fracture. Additional chronic compression fractures are not significantly changed. Dahiana Rosas MD CT * (ABNORMAL) BASIC METABOLIC PANEL (04/30/2024 3:20 PM CDT) GLUCOSE 96 65 - 99 mg/dL [facility] Comment: ? Fasting reference interval UREA NITROGEN (BUN) 14 7 - 25 mg/dL [facility] CREATININE 0.38(L) 0.60 - 1.00 mg/dL [facility] EGFR 103 > OR = 60 mL/min/1.7 3m2 [facility] BUN/CREATININE RATIO 37(H) 6 - 22 (calc) [facility] SODIUM 131(L) 135 - 146 mmol/L [facility] POTASSIUM 4.2 3.5 - 5.3 mmol/L [facility] CHLORIDE 93(L) 98 - 110 mmol/L [facility] CARBON DIOXIDE 29 20 - 32 mmol/L [facility] ELECTROLYTE BALANCE 9 7 - 17 mmol/L (calc) [facility] CALCIUM 9.6 8.6 - 10.4 mg/dL [facility] Blood BLOOD SPECIMEN / Unknown 04/30/2024 3:20 PM CDT 04/30/2024 3:21 PM CDT Dahiana Rosas MD CHEMISTRY [facility] [address] [place] [address], [id number] [address] [place] [address] * (ABNORMAL) XR DXA BONE DENSITY 2 SITES AXIAL (11/30/2022 9:54 AM CDT) Anatomical Region Laterality Modality Spine, HIPS, HIPL, HIPR Other Impressions 11/30/2022 12:13 PM CDT Osteoporosis. RECOMMENDATIONS: The National Osteoporosis Foundation recommends pharmacologic treatment for patients with T-scores of -2.5 or less, patients with prior history of fragility fractures, or patients with 10-year probability of greater than 3% at hips or greater than 20% of suffering major osteoporotic fractures. Recommend continued optimization of calcium and vitamin D intake through dietary means and/or supplementation and regular exercise. Consider pharmacologic therapy for osteoporosis. Follow-up bone density reading in 2 years if therapy initiated to assess therapeutic efficacy. Joann Casas PA-C [facility] 11/30/2022 Narrative 11/30/2022 12:13 PM CDT For Patients: Results are automatically released to your [facility] ([employer]) account once available, in compliance with federal regulations. This means that you may see your results before your provider has had a chance to review them. Please allow 2-3 business days for your provider to comment on the results. XR DXA Bone Mineral Density (BMD) EXAM LOCATION: [address] [address] PATIENT NAME: Donovan Anna DATE OF : 1945 EXAM DATE: 11/30/2022 REQUESTING PROVIDER: Chacha Alanis, DO GENDER AT : female HEIGHT: 5' 2.6 (01/05/2022) WEIGHT: ??138 lb 3.2 oz (11/21/2022) MENOPAUSAL STATUS: Postmenopausal, RACE/ETHNICITY: White RISK FACTORS: Height Loss (2 inches or more), History of Fragility Fracture (at a major site), Smoking (current) and White Race CURRENT MEDICATION FOR BONE LOSS: NONE INDICATION: Post-Menopause and CLOSED FX OF SACRUM COMPARISON DATE(S): 2001 DXA scans are compared to prior studies for a patient only when the two (or more) studies were performed on the same scanner. It is not possible to compare data generated on one scanner to data from another because there are not standards in DXA equipment. This applies even if the two scanners are made by the same adjunct instructor of women's studies. PROCEDURE: Dual-energy x-ray absorptiometry performed with routine technique. Reporting is completed in the form of a T-score. The T-score represents the standard deviation from peak bone mass based on young healthy adult. A Z-score is used for diagnosis in premenopausal women, and for men under the age of 50. FINDINGS: RESULT LUMBAR SPINE L2 - L4 ??BMD: 0.670 g/cm2 T-Score: - 4.4 Z-Score: - 2.5 Change from prior in 2001: ??Decrease 33.1%. RESULTS FEMUR Left femoral neck BMD: 0.513 g/cm2 T-Score: - 3.8 Z-Score: - 1.8 Change from prior in 2001: ??Decrease 31.3%. Right femoral neck BMD: 0.491 g/cm2 T-Score: - 3.9 Z-Score: - 1.9 Change from prior in 2001: ??Decrease 31.1%. Left hip BMD: 0.474 g/cm2 T-Score: - 4.2 Z-Score: - 2.4 Change from prior in 2001: ??Decrease 39.2%. Right hip BMD: 0.462 g/cm2 T-Score: - 4.3 Z-Score: - 2.5 Change from prior in 2001: ??Decrease 37.2%. WHO criteria: Normal: T-score at or above -1 SD Osteopenia: T-score between -1.1 and -2.4 SD Osteoporosis: T-score at or below -2.5 SD Chacha Johana Henryra DO DEXA * ANTI HCV (08/12/2019 2:21 PM DEVELOPMENT EXPERT) HEPATITIS C ANTIBODY Non-React ludwin Non-React ludwin 08/12/2019 9:46 PM DEVELOPMENT EXPERT [facility] Comment:Antibodies to HCV no t detected; does not exclude the possibility of exposure to HCV. Blood BLOOD SPECIMEN / Unknown Venipuncture / Unknown 08/12/2019 2:21 PM DEVELOPMENT EXPERT 08/12/2019 2:21 PM DEVELOPMENT EXPERT Dahiana Rosas MD SEND OUTS [facility] [address] [place] [address], from Last 3 Months or Most Recently Relevant to Health Maintenance Advance Directives * Full Code (Latest Code Status on File) Date Activated Date Inactivated Comments 02/02/2015 5:55 AM 02/02/2015 12:33 PM Care Teams Music Department Chair Relationship Specialty Start Date End Date Dahiana Roass MD [address] [place] [address] PCP - General Family Practice 08/12/13 Santy Norris [address] [place] [address] Poultry Field Service Technician 06/21/12 Jose Maria Skinner MD [address] [place] [address] Gastroenterology Internal Medicine 12/03/15
[2024-05-20 18:35] LABS: Slide Review Reflex No
[2024-05-20 18:37] LABS: Chloride* 92 mmol/L (96-114); Sodium* 128 mmol/L (135-149)
[2024-05-20 18:38] LABS: Potassium* 3.6 mmol/L (3.6-5.1)
[2024-05-20 18:40] LABS: Anion Gap 7 mEq/L (7-15); Blood Urea Nitrogen* 10 mg/dL (7-30); Carbon Dioxide* 29 mmol/L (20-32); Creatinine* 0.4 mg/dL (0.5-1.5); Est. Creatinine Clearance* 35.55; Estimated Glomerular Filt Rate 102 ml/min
[2024-05-20 18:41] LABS: Creatinine, Point-of-Care* 0.4 mg/dl (0.6-1.3)
[2024-05-20 18:41] LABS: Calcium* 9.2 mg/dL (8.4-10.6); Glucose* 112 mg/dL (60-115); Magnesium* 2.1 mg/dL (1.5-2.6)
[2024-05-20 18:43] LABS: D Dimer Quantitative* 0.63 ug/ml (0.00-0.50)
[2024-05-20 18:54] LABS: Troponin I* < 0.01 ng/mL (0.01-0.04)
== END 2024-05-20 20:38 | disposition home or self-care (01) ==
PROVIDERS: Emergency Provider Student in an Organized Health Care Education/Training Program; PCP Family Medicine
DX: R07.9 Chest pain, unspecified (principal)
CPT/HCPCS: 36415; 71275; 74174; 80048; 82565; 83735; 84484; 85025; 85379; 87631; 93005; 99284; 99285; Q9967

== ENCOUNTER 2025-06-28 19:50 | Outpatient (CLI) | payer MEDICARE, BC, SELFPAY | END 2025-06-28 19:51 | disposition home or self-care (01) | LOC: AMB 07-01 02:41 | PROVIDERS: PCP Family Medicine; Visit Provider Family Medicine | DX: R55 Syncope and collapse (principal); R11.2 Nausea with vomiting, unspecified; R42 Dizziness and giddiness | CPT/HCPCS: A0425; A0427 ==

== ENCOUNTER 2025-06-28 20:18 | Emergency (ER) | payer MEDICARE, BC, SELFPAY ==
--- OUTSIDE RECORDS SUMMARY | 2025-06-28 20:21 | XMS_ITS | Clinical Summary ---
Author Organization [facility] Address [address] [place] [address] Care Team Providers Care Sustainable Design Coordinator Name Role Phone Santy Norris Raj Unavailable [phone] Jose Maria Skinner MD Unavailable [phone] RalphDahiana warren MD Primary Care Provider Allergies Active AllergyReactionsCriticalityNoted DateCommentsChlorthalidoneOther - Describe In Comment Field09/23/2010 Hypokalemia Mvvokogdxwva29/11/7774AhhjkitwmlamcqizsbwPvgtajmrytmn23/05/2011LatexRash 06/21/2012 Slight red itchy hands from latex gloves Medications MedicationSigDispense QuantityRefillsLast FilledStart DateEnd DateStatus aspirin chewable 81 mg chewable tablet 1 daily 1 ctive triamcinolone 0.1 % ointment Indications:Allergic dermatitisApply topically to affected area(s) three times daily. Do not use on the face 14 g 5Active nystatin 100,000 unit/g ointment Indications:Allergic dermatitisApply topically to affected area(s) two times daily. 15 g 5Active calcium carbonate (CALTRATE 600 ORAL) Take by mouth.Active ibuprofen (IBU-200 ORAL) Take 600 mg by mouth at bedtime.Active amLODIPine (NORVASC) 5 mg tablet Indications:HTN (hypertension)Take 1 Tablet (5 mg) by mouth once daily. 90 Tablet 5Active lisinopriL (PRINIVIL; ZESTRIL) 20 mg tablet Indications:HTN (hypertension)Take 1 Tablet (20 mg) by mouth once daily. 90 Tablet 5Active Active Problems ProblemNoted DateDiagnosed NvxkOrbpktmqjcbs07/29/2025Depression, recurrent 2Adenomatous colon polyp11/26/2014 Overview (05/16/2022): Colonoscopy 11/2014 multiple large polyps, a large polyp at 25 cm was unresectable and will need to be removed with surgery Colonoscopy 04/2022 large TA, repeat in 3 years Ihfetvaabt46/21/2011 Overview (11/03/2010): suspect psoriasis Tobacco use joxdvvli74/23/2011Elevated daiykys3609/30/2010Vitamin D deficiency 07/01/2009Hypertension Encounters DateTypeDepartmentCare PtlbQpgtddronme84/08/2025Results Follow-Up [facility] [address] [facility] [place] [id number] Dahiana Rosas MD 06/19/2025 7:30 AM CSTNurse/Clinic Staff Only [facility] [address] [facility] [id number] Testing (HST Download.)06/19/20252314Eyvuxp22/04/2025 2:00 PM CSTNurse/Clinic Staff Only [facility] [address] [facility] [id number] Testing (HST Setup)06/18/2025Procedure Only [facility] [address] [place] [address] [address] [facility] [address] [place] [phone] Pb Wilkinson MD Results (HST)06/17/20253289Kjecbt42/29/2025 9:40 AM CDTOffice Visit [facility] [address] [facility] [address] Dahiana Rosas MD Medicare ANNUAL (subsequent) Visit (79 yr/Also follow up from recent UTI, feeling better but have questions)05/13/20252634Gozowb10/21/2025Orders Only [facility] [address] [facility] [place] [id number] Jose Maria Skinner MD <No scans attached>04/21/2025 1:45 PM CDTOffice Visit [facility] [address] [facility] [place] [address] Chacha Alanis, DO UTI (Burning with urination x2-3 weeks); Vaginal Discharge (Burning/thick discharge - started OTC monistat, some improvement in symptoms); Derm Problem (Dry patchy areas on elbows, around lips, ears,nose )04/21/20258633Mikmuy68/06/[address] [facility] [address] [place] [address] Dahiana Rosas MD UTI (From triage on 04/17)04/17/2025Nurse Triage [facility] [address] [place] [address] Dahiana Rosas MD Pain On Xtyzlfikg16/03/2025Telephone [facility] [address] [place] [address] Dahiana Rosas MD Appointment Request (UTI )from Last 3 Months Immunizations ImmunizationAdministration DatesNext DueCOVID-19 vaccine ([employer] 30mcg/0.3mL) MD GOODV10/05/2020,09/14/2020Hepatitis B (Adult)12/03/2000, 06/20/2000,05/11/2000Influenza, High-dose Quadrivalent Xlsrodhkuxp73/04/2022 Influenza, IIV3 (Age >=3 years)06/21/2012,04/15/2009Influenza, BXM74808/12/2019, 06/21/2012Influenza, Inactivated IIV3 (Age 65+ Years) Preserv Free08/12/2019 Pneumococcal Poly,23-Valent (Pneumovax)09/15/2013Pneumococcal conj 13-Valent (Prevnar 13)11/03/2014Td (Age >=7 Years)06/03/2009Td, Preservative Free (age >= 7 Years)06/03/2009Tdap09/23/2010 Family History Medical HistoryRelationNameCommentsDiabetesBrotherCancerFatherprostate at 78 of CVAHeart DiseaseMotherMI 2008HypertensionMotherat 89, with rapid heart beat.Anesthesia ProblemNo Family HistoryBlood DiseaseNo Family History Cancer-breastNo Family HistoryRelationNameStatusCommentsBrotherFatherMother Social History Tobacco UseTypesPacks/DayYears UsedDateSmoking Tobacco: Every FzzKrvmqenbjr856 Started: 1967Smokeless Tobacco: Never Tobacco Cessation:Ready to Q uit: Yes; Counseling Given: Not Answered Comments:in the process of quitting, 20 cigarettes a day Alcohol UseStandard Drinks/WeekCommentsYes0 (1 standard drink = 0.6 oz pure alcohol)1-2 glasses wine several days a week.PHQ-2AnswerDate RecordedPHQ-2 TOTAL FRHGE418Social ConnectionsAnswerDate RecordedDo you often feel lonely or isolated from those around you?010lcohol UseAnswerDate RecordedHow often do you have a drink containing alcohol?406How many drinks containing alcohol do you have on a typical day when you are drinking?0 01/05/2022How often do you have five or more drinks on one occasion? Financial Resource StrainAnswerDate RecordedDifficulty of Paying Living Expenses Difficulty of Paying Living ExpensesNot on file05/13/2025Food InsecurityAnswerDate RecordedDo you worry your food will run out before you are able to buy more?Transportation NeedsAnswerDate RecordedDoes lack of transportation keep you from medical appointments?Does lack of transportation keep you from work, meetings or getting things that you need?1 05/13/2025Housing StabilityAnswerDate RecordedWhat is your housing situation today?UtilitiesAnswerDate RecordedDo you have trouble paying for utilities (for example, heat, electricity, water, phone)? CommentsNoSex and Gender InformationValueDate RecordedSex Assigned at BirthNot on fileLegal GziGmefti40/14/2013 6:25 AM CSTGender IdentityNot on fileSexual OrientationNot on file Last Filed Vital Signs Vital SignReadingTime TakenCommentsBlood Gglytsch112/8205/13/2025 9:54 AM CDT Hwmvv744805/13/2025 9:54 AM ZAQYrajtoehwqh64.6 ??C (97.8 ??F)06/10/2018 11:14 AM CSTRespiratory Eqvj229602/02/2015 9:55 AM CDTOxygen Elpfwrndwk39%05/13/2025 9:54 AM CDTInhaled Oxygen Concentration--Abkpbv86.5 kg (118 lb)05/13/2025 9:54 AM CDT Pllhlo441.4 cm (5')05/13/2025 9:54 AM CDTBody Mass Index23.0505/13/2025 9:54 AM CDT Plan of Treatment DateTypeDepartmentCare Team (Latest Contact Info)Lazkjbulbwy35/08/2026 8:00 AM CSTOffice Visit [facility] [address] [place] [address] Pb Wilkinson MD [address] [place] [address] Health MaintenanceDue DateLast DoneCommentsZoster (shingles) series for age 50+ (1 of 2)1996Tetanus /05/2011, 06/03/2009, 06/03/2009RSV vaccine for adults or (1 - 1-dose 75+ series)2COVID-19 vaccine series ( season)/01/2025, 04/18/2022, 11/29/2021, Additional history existsInfluenza Vaccine (#1)/, 08/12/2019, 06/21/2012, Additional history existsLow Dose CT (for lung CA) age 50-80 , 3BMI (ht and wt on same day) for age 18+ /, 04/30/2024, 01/08/2023, Additional history exists Depression screening for age 12+, 04/30/2024, 01/08/2023, Additional history existsMedicare Wellness for age 65+, 04/30/2024, 01/08/2023, Additional history existsHepatitis B series for 19+ Xvncbdvqh05/21/2001, 06/20/2000, 05/11/2000Pneumococcal series for age 50+ Eyemwyhmd47/21/2015, 09/15/2013Hepatitis C screening for age 18-79Completed 08/12/2019DEXA/DXA scan for age 65+Txfjgbavy03/18/2023, 07/18/2001 Procedures Procedure NamePriorityDate/TimeAssociated DiagnosisCommentsHOME SLEEP TEST TYPE 3 RAXZGHRRJytfwdp95/04/2025 11:59 PM WEB MANAGER Loud snoring BASIC METABOLIC BHQBREdfdlbx06/29/2025 10:38 AM CDT HTN (hypertension) GLUCOSE, LZXRJHUidhpil35/07/2025 3:01 PM CDT Yeast dermatitis CBC W PLT NO KPTUEaqrxpv53/07/2025 3:01 PM CDT Allergic dermatitis Yeast dermatitis TRICHOMONAS, RENY, AND BACTERIAL VAGINOSIS BY QXWRgcgnbu99/07/2025 2:38 PM CDT Vaginal discharge URINALYSIS UEIHMOMZKKXMsmqdgn65/07/2025 1:50 PM CDT UTI symptoms URINE UZTNNKVRwhsnon26/07/2025 1:50 PM CDT UTI symptoms URINALYSIS MACROSCOPIC - [facility] ONLY POC DIP ([facility])Ujypozz8604/21/2025 1:50 PM CDT UTI symptoms CT CHEST SCREENING LOW DOSE WO FHPFBQLAWqcsbsg18/16/2024 3:20 PM CDT Personal history of nicotine dependence XR DXA BONE DENSITY 2 SITES OUFCIOkgoqch26/18/2023 9:54 AM CDT Closed fracture of sacrum with routine healing, unspecified portion of sacrum, subsequent encounter Postmenopausal ANTI TDWJdtcwof66/28/2020 2:21 PM WEB MANAGER Need for hepatitis C screening test from Last 3 Months or Most Recently Relevant to Health Maintenance Results * HOME SLEEP TEST TYPE 3 PORTABLE (06/18/2025 11:59 PM WEB MANAGER) Narrative Pb Wilkinson MD - 06/18/2025 11:59 PM WEB MANAGER Pb Wilkinson MD 06/21/2025 10:39 AM Home Sleep Test Name: ??Donovan Anna Location: ??[facility] Study notes: This is a single night home sleep apnea test. The study is performed in the context of a clinical suspicion for sleep apnea.. Donovan Anna ( 1945) is studied using a T3 Device using nasal pressure transducer, thoracoabdominal respiratory impedence plethysmography belts, pulse oximetry, snore microphone and actigraphy for body position. ?? The study is scored by a RPSGT and interpreted by a Diplomate of the [place] [employer]. ??Raw summary data is scanned into this report as a separate document. ??An epoch by epoch review of the data has been performed by the interpreting physician. Scored following the AASM Manual for the Scoring of Sleep and Associated Events, V3. ?? Respiratory Event Index (ROSA) ??Oxygen Desaturation Index (JESSIE) REI4% ??2 ??ODI4%: ??1.5 REI3% ??4.1 ??ODI3%: ??4.1 Supine ROSA: 5.8 ??Serjio Saturation 80 % Lateral ROSA: 3.5 ??Time Below 88% 241.4 ??minutes ?? Weight: Wt Readings from Last 1 Encounters: 05/13/25 53.5 kg (118 lb) Other data: Recording Duration: 539.9 minutes Time in Bed: ??487.9 minutes Estimated sleep efficiency [%]: 93 % Oximeter Quality: 93.5 % Flow Quality: 100.0 % RIP Quality: 100.0 % Supine time: 123.4 minutes Average SpO2: 88.7 % Pulse Average: 64.3 bpm Additional Comments: oximetry line appears artificially low IMPRESSION: Excessive Daytime Sleepiness (780.54, G47.10) - No Evidence of Obstructive Sleep Apnea Nocturnal Hypoxia (327.26, G47.34) RECOMMENDATIONS: - This is a negative home sleep study - A formal polysomnogram should be considered given a high false negative rate to home sleep testing. - However, if there is low clinical suspicion for obstructive sleep apnea, a negative home sleep test can be diagnostic. - Hypoxia is noted. ??While this can be probe error, it may suggest underlying cardiopulmonary disease and clinical correlation is recommended. - Consider a referral to Health Weight Management for patients with a BMI > 30. - Follow-up with a provider to discuss results is recommended. - Patients should be advised to avoid critical tasks, such as driving, whenever drowsy. - Patients should try to achieve at least 7-8 hours of sleep on a consistent basis. - The ROSA is a surrogate for AHI. ??For reimbursement and/or prior authorization purposes, it would be appropriate to list the ROSA as an AHI when the latter is accepted, but not the former. Pb Wilkinson M.D. Diplomate, Board of Sleep Medicine Recording Information Recording Date: 06/18/2025 ??Analysis Start Time: 11:52 PM Recording Tags: ?? Analysis Stop Time: 7:59 AM Device Type: T3S ??Analysis Duration (TRT): 8h 7m ?? Est. Total Sleep Time: 8h 1m Position and Analysis Time Duration Percentage Supine (in TST): 123.4 m 25.6 % Non-Supine (in TST): 358.3 m 74.4 % Upright (in TRT): 6.2 m 1.3 % Movement (in TST): 34.1 m 7.1 % Invalid Data (Excluded): 0 m 0 % Respiratory Indices Index ?? Total ??Supine ??Non-supine Count Apneas + Hypopneas (REI3%): 4.1 /h 5.8 /h 3.5 /h 33 Apneas + Hypopneas (REI4%) 2 /h ??/h ??/h ?? Apneas: 1.1 /h 1.9 /h 0.8 /h 9 Obstructive (OA): 1.1 /h 1.9 /h 0.8 /h 9 Mixed (MA): 0 /h 0 /h 0 /h 0 Central (CA): 0 /h 0 /h 0 /h 0 Hypopneas 3%: ??3 /h 3.9 /h 2.7 /h 24 Hypopneas 4%: 0 /h 8 /h 16 /h 0 Respiration Rate (per m): 17.4 /m 18.3 /m 17.1 /m ?? Percentage of Sleep Duration Snore: 39.5 % 51.5 % 35.4 % 190.4 m Flow Limitation: 0 % 0 % 0 % 0 m Average Snore Volume 63.9 dB Percent of time greater than 80dB: Percent of 0.2 % Oxygen Saturation (SpO2) Total Supine ?Non-supine Oxygen Desaturation Index (JESSIE): 4.1 /h ??5.8 /h 3.5 /h Average SpO2: 88.7 % ??90.1 % 88.3 % Minimum SpO2: 80 % ??84 % 80 % SpO2 Duration < 90% 61.8 % (297.5m) 39.8 % 69.4 % SpO2 Duration <= 88% 50.1 % (241.4m) 33.5 % 55.9 % Pulse in TST ?? Quality ?? Average: 64.3 bpm Oximeter: 93.5 % Maximum: 128 bpm Nasal Cannula: 100 % Minimum: 24 bpm Abdomen RIP: 100 % Duration < 40 bpm: 0.1 m Thorax RIP: 100 % Duration > 100 bpm: 0.3 m Authorizing ProviderResult TypeResult StatusDahiana Rosas [facility] Final Result * (ABNORMAL) BASIC METABOLIC PANEL (05/13/2025 10:38 AM CDT)ComponentValueRef RangeTest MethodAnalysis TimePerformed AtPathologist QhxbyqbbuHDESCJ989(L)135 - 146 mmol/L1 3:53 AM CDTQUEST DIAGNOSTICSPOTASSIUM4.53.5 - 5.3 mmol/L1 3:53 AM CDTQUEST DIAGNOSTICSCARBON GHYDZHQ7820 - 32 mmol/L 05/14/2025 3:53 AM CDTQUEST CLBJHMFHLLQERFPOWC1884 - 99 mg/dL10/ 3:53 AM CDTQUEST DIAGNOSTICSComment: ? Fasting reference interval CALCIUM9.48.6 - 10.4 mg/dL05/14/2025 3:53 AM CDTQUEST DIAGNOSTICSCREATININE0.43 (L)0.60 - 1.00 mg/dL05/14/2025 3:53 AM CDTQUEST DIAGNOSTICSBUN/CREATININE RATIO 26(H)6 - 22 (calc)05/14/2025 3:53 AM CDTQUEST LGXQTUBBATXCBGZ85> OR = 60 mL/min/1.48q77605/14/2025 3:53 AM CDTQUEST DIAGNOSTICSUREA NITROGEN (BUN)117 - 25 mg/dL05/14/2025 3:53 AM CDTQUEST DIAGNOSTICSELECTROLYTE WGWLKNW48 - 17 mmol/L (calc)05/14/2025 3:53 AM CDTQUEST QXASGXXHFLNUNSPXBQV60(L)98 - 110 mmol/L 05/14/2025 3:53 AM CDTQUEST DIAGNOSTICSSpecimen (Source)Anatomical Location / LateralityCollection Method / VolumeCollection TimeReceived TimeBloodBLOOD SPECIMEN / UnknownQuest Collect / Taydkrv4705/13/2025 10:38 AM CDT1 10:38 AM CDT Narrative Authorizing ProviderResult TypeResult StatusDahiana Rosas MDCHEMISTRY Final ResultPerforming OrganizationAddressCity/State/ZIP CodePhone Number [facility] [address] [address], * GLUCOSE, RANDOM (04/21/2025 3:01 PM CDT)ComponentValueRef RangeTest Method Analysis TimePerformed AtPathologist SignatureGLUCOSE, FGVFCO77<140 mg/dL 04/22/2025 4:06 AM CDTQUEST DIAGNOSTICSSpecimen (Source)Anatomical Location / LateralityCollection Method / VolumeCollection TimeReceived TimeBloodBLOOD SPECIMEN / UnknownQuest Collect / Xedlkak7804/21/2025 3:01 PM CDT1 3:01 PM CDT Narrative Authorizing ProviderResult TypeResult StatusChacha Alanis DOCHEMISTRYFinal ResultPerforming OrganizationAddressCity/State/ZIP CodePhone Number [facility] [address] [place] [address], * CBC W PLT NO DIFF (04/21/2025 3:01 PM CDT)ComponentValueRef RangeTest Method Analysis TimePerformed AtPathologist SignatureWHITE BLOOD CELL COUNT6.33.8 - 10.8 Thousand/uL04/22/2025 3:17 AM CDTQUEST DIAGNOSTICSRED BLOOD CELL COUNT 4.683.80 - 5.10 Million/uL04/22/2025 3:17 AM CDTQUEST DIAGNOSTICSHEMOGLOBIN 14.511.7 - 15.5 g/dL04/22/2025 3:17 AM CDTQUEST JWOHXMSLAIUFZOKMEJRIK76.335.0 - 45.0 %04/22/2025 3:17 AM CDTQUEST UEGJOBGAHKILBW91.780.0 - 100.0 fL 04/22/2025 3:17 AM CDTQUEST HHEVJWTQZAVBFO19.027.0 - 33.0 pg04/22/2025 3:17 AM CDTQUEST QACCWRXSHLAEXGT03.732.0 - 36.0 g/dL04/22/2025 3:17 AM CDTQUEST DIAGNOSTICSComment: For adults, a slight decrease in the calculated MCHC value (in the range of 30 to 32 g/dL) is most likely not clinically significant; however, it should be interpreted with caution in correlation with other red cell parameters and the patient's clinical condition. RDW12.411.0 - 15.0 %04/22/2025 3:17 AM CDTQUEST DIAGNOSTICSPLATELET XAARG870846 - 400 Thousand/uL04/22/2025 3:17 AM CDTQUEST BTRNCWDRWDZEOZ25.47.5 - 12.5 fL 04/22/2025 3:17 AM CDTQUEST DIAGNOSTICSSpecimen (Source)Anatomical Location / LateralityCollection Method / VolumeCollection TimeReceived TimeBloodBLOOD SPECIMEN / UnknownQuest Collect / Ulicczb2004/21/2025 3:01 PM CDT1 3:01 PM CDT Narrative Authorizing ProviderResult TypeResult StatusSiri [facility] Manorqra DOHEMATOLOGYFinal ResultPerforming OrganizationAddressCity/State/ZIP CodePhone Number [facility] [address] [place] [address], * (ABNORMAL) TRICHOMONAS, RENY, AND BACTERIAL VAGINOSIS BY CANDELARIA [[id number]] - vaginal (04/21/2025 2:38 PM CDT)ComponentValueRef RangeTest MethodAnalysis TimePerformed AtPathologist SignatureCANDIDA MLQOIFBHqmxqodmJzbxxlei25/08/2025 11:01 PM [facility]-C[facility]TRAL LABORATORYCANDIDA GLABRATA HfjdbxucJktixuxv69/08/2025 11:01 PM [facility]-CENTRAL LABORATORYTRICHOMONAS GSCHzindvitWvpshdez63/08/2025 11:01 PM [facility]-CENTRAL LABORATORYBACTERIAL VAGINOSISPositive(A)Fvqulpmj25/08/2025 11:01 PM [facility]-CENTRAL LABORATORYSpecimen (Source) Anatomical Location / LateralityCollection Method / VolumeCollection Time Received TimeOtherVAGINAL SWAB / UnknownNon-Blood / Jvddlwj3204/21/2025 2:38 PM CDT1 3:17 PM CDT Narrative Authorizing ProviderResult TypeResult StatusSiri Johana Zeke DOMICROBIOLOGYFinal ResultPerforming OrganizationAddressCity/State/ZIP CodePhone Number [facility] [address] [address], * (ABNORMAL) POCT Urinalysis Dipstick Only [[id number]] (04/21/2025 1:50 PM CDT) ComponentValueRef RangeTest MethodAnalysis TimePerformed AtPathologist SignatureSPECIFIC GRAVITY1.0151.001 - 1.4424404/21/2025 2:06 PM CDFORT DEFIANCE INDIAN HOSPITALPROTEINNEGATIVENEGATIVE04/21/2025 2:06 PM [facility]ENTERGLUCOSENEGATIVENEGATIVE04/21/2025 2:06 PM [facility] CENTERKETONESNEGATIVENEGATIVE04/21/2025 2:06 PM [facility] CENTERBILIRUBINNEGATIVENEGATIVE04/21/2025 2:06 PM [facility] CLINICOCCULT BLOOD1+(A)QYOXLSDK55/07/2025 2:06 PM CDNESHO[facility] NZCHDMLYUTEYOVJVTDNOQLYRTNYTC48/07/2025 2:06 PM [facility] CLINICPH6.55.0 - 8.010 2:06 PM [facility] CENTERLEUKOCYTE ESTERASE2+(A)KGHJUMPA45/07/2025 2:06 PM [facility] CLINICSpecimen (Source)Anatomical Location / LateralityCollection Method / VolumeCollection TimeReceived TimeUrineURINE SPECIMEN / UnknownNon- Blood / Vcumxql2904/21/2025 1:50 PM CDT1 2:00 PM CDT Narrative Authorizing ProviderResult TypeResult StatusSiri Johana Shaqra DOURINEFinal Result Performing OrganizationAddressCity/State/ZIP CodePhone Number [facility] [address] [place] [address], [facility] [address] [place] [address], * (ABNORMAL) URINALYSIS MICROSCOPIC [27567.1] - routine (04/21/2025 1:50 PM CDT) ComponentValueRef RangeTest MethodAnalysis TimePerformed AtPathologist XbwzgowecTMR3-53-1, None Seen /HPF04/22/2025 7:53 AM [facility] BGNYUHABKSYLF51-37(A)0-2, 3-5, None Seen /HPF04/22/2025 7:53 AM [facility]-CENTRAL LABORATORYBACTERIANone SeenNone Seen, Rare, Few Bacteria/HPF04/22/2025 7:53 AM CDUV[facility] LAB[facility]- CENTRAL LABORATORYEPITHELIAL CELLSNone SeenNone Seen, Few Epi/HPF04/22/2025 7:53 AM [facility]AL LABORATORYHYALINE CASTS0-20-2, 3-5 /LP04/22/2025 7:53 AM [facility]-CENTRAL LABORATORYSpecimen (Source)Anatomical Location / LateralityCollection Method / VolumeCollection TimeReceived TimeUrineURINE SPECIMEN / UnknownNon-Blood / Rqpafqx7604/21/2025 1:50 PM CDT1 2:00 PM CDT Narrative Authorizing ProviderResult TypeResult StatusSiri Johana Alanis DOURINEFinal Result Performing OrganizationAddressty/State/ZIP CodePhone Number [facility] [address] [place] [address], * URINE CULTURE [41996.2] (04/21/2025 1:50 PM CDT)ComponentValueRef RangeTest MethodAnalysis TimePerformed AtPathologist SignatureCULTURENo growth (<1,000 CFU/mL)04/23/2025 10:57 AM CDUV[facility] Specimen (Source)Anatomical Location / LateralityCollection Method / Volume Collection TimeReceived TimeUrineURINE SPECIMEN / UnknownNon-Blood / Unknown 04/21/2025 1:50 PM CDT1 2:00 PM CDT Narrative Authorizing ProviderResult TypeResult StatusMarianri Johana Alanis DOMICROBIOLOGYFinal ResultPerforming OrganizationAddressCity/State/ZIP CodePhone Number [facility] [address] [place] [address], * CT CHEST SCREENING LOW DOSE WO CONTRAST [[id number]] -- Criteria: must meet ALL: Age 50-80, current smoker or quit within the last 15 years, AND 20+ pack-year history (04/30/2024 3:20 PM CDT)Anatomical RegionLateralityModalityComputed TomographySpecimen (Source)Anatomical Location / LateralityCollection Method / VolumeCollection TimeReceived Time Impressions 05/01/2024 8:51 AM CDT 1. Multiple [...] For Patients: As a result of the Cures Act, medical imaging exams and procedure [...] chronic compression fractures are not significantly changed. Authorizing ProviderResult TypeResult StatusDahiana Rosas MDCTFinal Result * (ABNORMAL) XR DXA BONE DENSITY 2 SITES AXIAL (11/30/2022 9:54 AM CDT) Anatomical RegionLateralityModalitySpine, HIPS, HIPL, HIPROtherSpecimen (Source)Anatomical Location / LateralityCollection Method / VolumeCollection TimeReceived Time Impressions 11/30/2022 12:13 PM CDT Osteoporosis. RECOMMENDATIONS: [...] to assess therapeutic efficacy. Joann Casas PA-C [facility] 11/30/2022 Narrative 11/30/2022 12:13 PM CDT For Patients: Results are automatically released to your [email or web address] ([employer]) ([employer]) account once available, in compliance with federal regulations. This means that you may see your results before your provider has had a chance to review them. Please allow 2-3 business days for your provider to comment on the results. XR DXA Bone Mineral Density (BMD) EXAM LOCATION: [facility] [address] [facility] [address] PATIENT NAME: Donovan Anna DATE OF : [...] two scanners are made by the same crew leader. PROCEDURE: Dual-energy x-ray absorptiometry performed with routine [...] Osteoporosis: T-score at or below -2.5 SD Authorizing ProviderResult TypeResult StatusSiri Johana Zeke DODEXAFinal Result * ANTI HCV (08/12/2019 2:21 PM WEB MANAGER)ComponentValueRef RangeTest MethodAnalysis TimePerformed AtPathologist SignatureHEPATITIS C ANTIBODYNon-Reactive Non-Otuwwgkl34/28/2020 9:46 PM CSTSENTARA [facility] Comment:Antibodies to HCV not detected; does not exclude the possibility of exposure to HCV.Specimen (Source)Anatomical Location / LateralityCollection Method / VolumeCollection TimeReceived TimeBloodBLOOD SPECIMEN / Unknown Venipuncture / Yrmvtfw8708/12/2019 2:21 PM CST08/12/2019 2:21 PM WEB MANAGER Narrative Authorizing ProviderResult TypeResult StatusDahiana Flor Ralph MDSEND OUTS Final ResultPerforming OrganizationAddressCity/State/ZIP CodePhone Number [facility] [address] [place] [address], from Last 3 Months or Most Recently Relevant to Health Maintenance Insurance * Guarantor: Donovan Anna EAccount TypeRelation to PatientDate of BirthPhone Billing AddressPersonal/OgehtcHugi40/13/1946 [address] [place] [address] * Guarantor: Donovan Anna TypeRelation to PatientDate of BirthPhone Billing AddressWorkers LdhuZfsc87/ [phone] ([place]) [address] [place] [id number] * Guarantor: Fossum, Donovan EAccount TypeRelation to PatientDate of BirthPhone Billing AddressWorkers IzwcOlkq72/13/1946 [address] [place] [address] Advance Directives * Full Code (Latest Code Status on File) Date ActivatedDate InactivatedComments02/02/2015 5:55 AM02/02/2015 12:33 PM Care Teams Team MemberRelationshipSpecialtyStart DateEnd Date Dahiana Rosas MD [address] [place] [address] PCP - GeneralFamily Sklhidds54/7/25 Santy Norris [address] [place] [id number] Idokpulcidq63/7/12 Jose Maria Skinner MD [address] [place] [address] GastroenterologyInternal Medicine12/03/15
[2025-06-28 20:27] VITALS: BP 123/86; PULSE 82; RESP 18; TEMP 35.9; O2SAT 98; BMI 23.2
--- NOTE | 2025-06-28 20:38 | ED.GENADULT ---
HPI - General Adult General Chief complaint: Syncope/Fainted Stated complaint: Weakness Time Seen by Provider: 06/28/25 20:31 History of Present Illness HPI narrative: pt has near syncope episode at home. Pt felt need to have a BM. Went to restroom, nothing really happened. Pt felt like she was going to pass out after walking back to dining area. No reported trauma. This happened around 1900. 79-year-old woman presenting to the emergency department after couple of episodes of lightheadedness, dizziness diaphoresis. Over the last week has been having some grating stomach pains and earlier in the week did take Tums for what she presumed was some GERD or heartburn symptoms. Did seem to help. Today after eating supper though began to have some gurgling stomach or feeling like she was going to have to have a bowel movement. She had taken some MiraLax earlier in the week as well as she is uncertain if the smaller stools she was having was normal she says. Going to the bathroom then and not producing any stool this evening she got up walking back to the kitchen and became rather diaphoretic. Not short of breath. Lightheaded perhaps as well. No shortness of breath or chest pain. Sat at the table for a bit. Ended up vomiting twice. When back to the bathroom with thought that she might have to have a bowel movement again. Had a small bowel movement but noted that it was somewhat dark. No hematochezia. Became dizzy and lightheaded again going back to the table. Subsequently called for help. She feels much better now. Has received 500 mL of normal saline and initiated by EMS. Is not having any abdominal pain now. She does smoke. Related Data Home Medications ?Medication ?Instructions ?Recorded ?Confirmed aspirin 81 mg chewable tablet 81 mg PO DAILY 05/19/22 05/20/24 (Aspirin Childrens) lisinopril 40 mg tablet 40 mg PO DAILY 05/20/24 05/20/24 Allergies Allergy/AdvReac Type Severity Reaction Status Date / Time chlorthalidone Allergy hypokalemia Verified 05/20/24 18:45 erythromycin base (From Allergy Verified 05/20/24 18:45 Erythrocin) hydrochlorothiazide Allergy hyponatremi Verified 05/20/24 18:45 a latex Allergy Verified 05/20/24 18:45 Review of Systems Status of ROS: Reports: 6 or more systems reviewed and unremarkable except as noted in History and below [facility] Medical History Adenomatous colon polyp ?D12.6 - Benign neoplasm of colon, unspecified (ICD-10) Dermatitis ?L30.9 - Dermatitis, unspecified (ICD-10) Vitamin D deficiency ?E55.9 - Vitamin D deficiency, unspecified (ICD-10) Surgical History Abnormal colonoscopy ?R93.3 - Abnormal findings on diagnostic imaging of other parts of digestive tract (ICD-10) History of hand surgery ?Z98.890 - Other specified postprocedural states (ICD-10) Family History Other Coronary artery disease High cholesterol Stroke Social History Narrative: 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 She doesn't use recreational drugs. Smoking Status: Current every day smoker What tobacco products do you use: cigarettes Smoking packs per day: 1 Smoking cigarettes per day: 20.0 Do you use any of these nicotine containing products: None Second hand tobacco smoke exposure: No How often do you have a drink containing alcohol: 4 or more times a week Alcohol type: wine How many standard drinks containing alcohol do you have on a typical day: 1 or 2 How often do you have six or more drinks on one occasion: Never AUDIT-C Alcohol total score: 4 Non-prescribed substance use: denies use Caffeine: Yes Are you using contraception or practicing any form of control: No service: No Exam Narrative: Exam Narrative: Pleasant. NAD. Partially edentulous. Oropharynx is moist. Cranial nerves 2-12 are intact. No reproducible dizziness with head movement here now. Lungs are clear. Heart in regular rate and rhythm. No murmur identified. Abdomen is soft. No mass pulsatile or otherwise. Not with reliably reproducible discomfort. Extremities well perfused without edema. Const: Vital Signs, click to edit/add: Vital Signs - 24 hr 06/28/25 20:27 Temperature 96.6 F L Pulse Rate [Left P ulse Oximeter] 82 Respiratory Rate 18 Blood Pressure [Ri ght Upper Arm] 123/86 Pulse Oximetry 98 Oxygen Delivery Me thod Room Air Documenting provider has reviewed patient's vital signs: yes Course Vital Signs Vital signs: Initial Vital Signs Temperature 96.6 F L 06/28/25 20:27 Temperature Source Temporal Artery Scan 06/28/25 20:27 Pulse Rate 82 06/28/25 20:27 Pulse Rhythm Regular 06/28/25 20:27 Respiratory Rate 18 06/28/25 20:27 Blood Pressure 123/86 06/28/25 20:27 Blood Pressure Mean 98 06/28/25 20:27 Blood Pressure Position Left Lateral 06/28/25 20:27 Pulse Oximetry 98 06/28/25 20:27 Oxygen Delivery Method Room Air 06/28/25 20:27 Vital Signs Temperature 96.6 F L 06/28/25 20:27 Pulse Rate 82 06/28/25 20:27 Respiratory Rate 18 06/28/25 20:27 Blood Pressure 123/86 06/28/25 20:27 Pulse Oximetry 98 06/28/25 20:27 Oxygen Delivery Method Room Air 06/28/25 20:27 Temperature 96.6 F L 06/28/25 20:27 Pulse Rate 89 06/28/25 23:30 Respiratory Rate 20 06/28/25 23:30 Blood Pressure 128/60 06/28/25 23:33 Pulse Oximetry 97 06/28/25 23:30 Oxygen Delivery Method Room Air 06/28/25 23:30 Medications Administered Medications: Discontinued Medications Generic Name Dose Route Start Last Admin Trade Name Freq PRN Reason Stop Dose Admin Sodium Chloride 500 mls @ 500 mls/hr 06/28/25 20:49 06/28/25 21:31 0.9 % Sodium Chloride 500 Ml IV 06/28/25 21:48 500 mls/hr .Q1H ONE Administration Medical Decision Making MDM Narrative Medical decision making narrative: Differential would include cardiovascular event, like dysrhythmia, vasovagal I think most likely possibly in the setting of constipation. Dark stools concerning this might represent lower GI bleed and that she is actually anemic contributing to symptoms here today. Unrelated inner ear issue though not reproducible at this point. Will monitor. Check standard labs. Heartburn could have created some of this event today too. Possible ischemic cardiovascular event. Given further 500 mL of normal saline. Orthostatics were unremarkable. Labs remarkable for hemoglobin of 8.8. Did have labs more recently drawn maybe a couple months ago but these results are unavailable. This is a drop however of 5.5 g approximately since about this time last year on review of record. D-dimer also elevated at 1.23. Might have upper GI bleed of some sort, ulcer? Esophagitis? Does smoke. This might be vascular disruption. Might have malignancy. With constellation of symptoms I think will do CT chest with PE protocol and vascular study of abdomen and pelvis. CT imaging independently reviewed by me is most remarkable for calcification in the vasculature of the abdomen INDICATION: Elevated D-dimer, near-syncope. TECHNIQUE: CT chest PE was acquired with 99 cc Isovue 370 IV contrast. MIP reconstructions were performed. COMPARISON: None. FINDINGS: Heart and vasculature: Contrast opacification of the pulmonary arterial tree is adequate. No sign of pulmonary embolism. Heart size is normal. Thoracic aorta and pulmonary artery are normal in caliber. Lungs and pleura: No suspicious nodules or infiltrates. Scattered atelectasis. No pleural effusions, pleural thickening, or pneumothorax. Lymph nodes/mediastinum: No mediastinal, hilar, or axillary adenopathy. Chest wall: No masses. Upper abdomen: No acute or significant findings. Bones: Age-indeterminate T3, T6, T10, and L1 compression deformities, likely chronic. Recommend correlation with point tenderness. IMPRESSION: No pulmonary embolism. No focal consolidations. Please note that all CT scans at this facility use dose modulation, iterative reconstruction, and/or weight-based dosing when appropriate to reduce radiation dose to as low as reasonably achievable. Dictated by Anselmo Cervantes MD @ 06/28/2025 11:25:11 PM INDICATION: Recent abdominal pain, near syncope, new anemia. TECHNIQUE: CT abdomen and pelvis acquired with 95 cc Isovue 370 IV contrast. COMPARISON: None. FINDINGS: Lower chest: Unremarkable. Liver: Unremarkable. Normal in size and attenuation. No suspicious masses. Gallbladder and bile ducts: Unremarkable. No stones or inflammation. No biliary dilatation. Pancreas: Unremarkable. No mass or inflammation. Spleen: Unremarkable. Normal in size. No masses. Adrenal glands: Unremarkable. No nodules. Kidneys: Unremarkable. No suspicious masses, stones, or hydronephrosis. GI tract: Colonic diverticulosis without diverticulitis. No bowel obstruction. Normal appendix. Vasculature: Aortoiliac arterial calcifications. Abdominal aorta is normal in caliber. Mesenteric arteries are patent. Lymph nodes: No lymphadenopathy. Peritoneum/Abdominal Wall: Unremarkable. No sign of mass or infiltration. No free air or significant free fluid. Pelvis: Mildly distended bladder with circumferential wall thickening. Recommend correlation with urinalysis if UTI is suspected.. Bones: Age-indeterminate L1 and L2 compression deformities, likely chronic. Recommend correlation with point tenderness. IMPRESSION: No acute intra-abdominal/pelvic abnormality. Chronic findings as above. Please note that all CT scans at this facility use dose modulation, iterative reconstruction, and/or weight-based dosing when appropriate to reduce radiation dose to as low as reasonably achievable. Dictated by Anselmo Cervantes MD @ 06/28/2025 11:29:47 PM Overall improved during time of monitoring in the emergency department. No events on cardiac care unit nurse. See patient discharge plan for further discussion It seems that you may have experienced a vasovagal episode related to bathrooming today. Or at least I can not say that anything else happened. Complicating this though is that you are anemic at 8.8 which may be new depending on what you find with your labs that were relatively recently done. Since you been having some abdominal discomfort, intermittently dark stools and this anemia, you probably should get further evaluated which might include an upper endoscopy and possibly a colonoscopy. Please message your primary care provider tomorrow to arrange follow-up. They may want you to take famotidine or omeprazole in the meantime. You have been experiencing some unsteadiness otherwise and I would encourage you to follow-up with physical therapy as planned when you feel able. Be seen here sooner for persistent and worsening lightheadedness, chest pain, shortness of breath, new and focal weakness, worsening abdominal pain. Medical Records Medical records reviewed: Yes I reviewed the patient's medical records Lab Data Lab results reviewed: Yes I reviewed the patient's lab results Labs: Lab Results 06/28/25 06/28/25 06/28/25 Range/Units 20:50 20:55 21:10 WBC 9.50 (4.50-11.00) K/uL RBC 2.95 L (4.00-5.20) m/uL Hgb 8.8 L (12.0-16.0) gm/dL Hct 27.5 L (33.0-51.0) % MCV 93 (80-100) fL MCH 30 (26-34) pg MCHC 32 (32-36) gm/dL RDW Coeff of Betsy 12.7 (11.5-15.5) % Plt Count 443 H (140-440) K/uL Neut % (Auto) 84.3 H (42.0-72.0) % Lymph % (Auto) 7.9 L (20-44) % [place] % (Auto) 7.4 (0.0-11.0) % Eos % (Auto) 0.0 (0.0-7.0) % Baso % (Auto) 0.1 (0.0-3.0) % Neut # (Auto) 8.00 H (1.7-7.0) K/uL Lymph # (Auto) 0.80 L (0.90-2.90) K/uL [place] # (Auto) 0.70 (0.00-0.90) K/UL Eos # (Auto) 0.00 (0.00-0.50) K/uL Baso # (Auto) 0.01 (0.00-0.30) K/uL Abs Immat Gran (auto) 0.03 (0.00-0.30) K/uL Imm/Tot Granulo (auto) 0.3 % D-Dimer Quant (PE/DVT) 1.23 H (0.00-0.50) ug/ml Sodium 125 L (135-149) mmol/L Potassium 4.6 (3.6-5.1) mmol/L Chloride 93 L (96-114) mmol/L Carbon Dioxide 28 (20-32) mmol/L Anion Gap 4 L (7-15) mEq/L BUN 36 H (7-30) mg/dL Creatinine 0.6 (0.5-1.5) mg/dL Estimated Creat Clear 34.99 Estimated GFR 92 ml/min Glucose 116 H (60-115) mg/dL Calcium 8.4 (8.4-10.6) mg/dL Total Bilirubin 0.2 (0.1-1.5) mg/dL Direct Bilirubin 0.1 (0.0-0.5) mg/dL AST 26 (12-35) U/L ALT 9 (4-35) U/L Alkaline Phosphatase 88 (40-150) U/L Troponin I < 0.01 (0.01-0.04) ng/mL POC Troponin I High Sensi 2.9 (2.9-13.0) pg/mL Total Protein 5.9 L (6.0-8.3) g/dL Albumin 3.3 (3.3-5.0) g/dL Urine Color (Yellow) Urine Appearance (Clear) Urine pH (5.0-8.5) Ur Specific [place] (1.000-1.030) Urine Protein (Negative) Urine Glucose (UA) (Negative) Urine Ketones (Negative) Urine Blood (Negative) Urine Nitrite (Negative) Urine Bilirubin (Negative) Urine Urobilinogen (0.2-1.0) Ur Leukocyte Esterase (Negative) Urine RBC (0-2) Urine WBC (0-5) Ur Squamous Epith Cells (None-Few) Urine Bacteria (None) SARS-CoV-2 (PCR) Negative SARS-CoV-2 (Negative) Influenza Type A (PCR) Negative PCR FLU A (Negative) Influenza Type B (PCR) Negative PCR FLU B (Negative) RSV (PCR) Negative PCR RSV (Negative) 06/28/25 06/28/25 Range/Units 22:49 22:58 WBC (4.50-11.00) K/uL RBC (4.00-5.20) m/uL Hgb (12.0-16.0) gm/dL Hct (33.0-51.0) % MCV (80-100) fL MCH (26-34) pg MCHC (32-36) gm/dL RDW Coeff of Betsy (11.5-15.5) % Plt Count (140-440) K/uL Neut % (Auto) (42.0-72.0) % Lymph % (Auto) (20-44) % [place] % (Auto) (0.0-11.0) % Eos % (Auto) (0.0-7.0) % Baso % (Auto) (0.0-3.0) % Neut # (Auto) (1.7-7.0) K/uL Lymph # (Auto) (0.90-2.90) K/uL [place] # (Auto) (0.00-0.90) K/UL Eos # (Auto) (0.00-0.50) K/uL Baso # (Auto) (0.00-0.30) K/uL Abs Immat Gran (auto) (0.00-0.30) K/uL Imm/Tot Granulo (auto) % D-Dimer Quant (PE/DVT) (0.00-0.50) ug/ml Sodium (135-149) mmol/L Potassium (3.6-5.1) mmol/L Chloride (96-114) mmol/L Carbon Dioxide (20-32) mmol/L Anion Gap (7-15) mEq/L BUN (7-30) mg/dL Creatinine (0.5-1.5) mg/dL Estimated Creat Clear Estimated GFR ml/min Glucose (60-115) mg/dL Calcium (8.4-10.6) mg/dL Total Bilirubin (0.1-1.5) mg/dL Direct Bilirubin (0.0-0.5) mg/dL AST (12-35) U/L ALT (4-35) U/L Alkaline Phosphatase (40-150) U/L Troponin I (0.01-0.04) ng/mL POC Troponin I High Sensi 2.9 (2.9-13.0) pg/mL Total Protein (6.0-8.3) g/dL Albumin (3.3-5.0) g/dL Urine Color Yellow (Yellow) Urine Appearance Clear (Clear) Urine pH 7.0 (5.0-8.5) Ur Specific [place] 1.015 (1.000-1.030) Urine Protein Negative (Negative) Urine Glucose (UA) Negative (Negative) Urine Ketones Negative (Negative) Urine Blood 2+ A (Negative) Urine Nitrite Negative (Negative) Urine Bilirubin Negative (Negative) Urine Urobilinogen 0.2 (0.2-1.0) Ur Leukocyte Esterase Negative (Negative) Urine RBC 0-2 (0-2) Urine WBC 0-2 (0-5) Ur Squamous Epith Cells None (None-Few) Urine Bacteria None (None) SARS-CoV-2 (PCR) (Negative) Influenza Type A (PCR) (Negative) Influenza Type B (PCR) (Negative) RSV (PCR) (Negative) ECG Data Attestation: I personally reviewed and interpreted this ECG as follows: (Normal sinus rhythm. Comparison from 1 year ago. Looks similar. Rate of 78 here. I do not appreciate acute ischemic changes here) Discharge Plan Discharge Clinical Impression: Vasovagal near syncope, Anemia, Chronic hyponatremia Patient Disposition: Home w/ Parent or Adult Condition: Improved Additional Instructions: It seems that you may have experienced a vasovagal episode related to bathrooming today. Or at least I can not say that anything else happened. Complicating this though is that you are anemic at 8.8 which may be new depending on what you find with your labs that were relatively recently done. Since you been having some abdominal discomfort, intermittently dark stools and this anemia, you probably should get further evaluated which might include an upper endoscopy and possibly a colonoscopy. Please message your primary care provider tomorrow to arrange follow-up. They may want you to take famotidine or omeprazole in the meantime. You have been experiencing some unsteadiness otherwise and I would encourage you to follow-up with physical therapy as planned when you feel able. Be seen here sooner for persistent and worsening lightheadedness, chest pain, shortness of breath, new and focal weakness, worsening abdominal pain. Prescriptions: No Action aspirin [Aspirin Childrens] 81 mg tablet,chewable 81 mg PO DAILY lisinopril 40 mg tablet 40 mg PO DAILY Follow Up/Referrals: Dahiana Rosas MD [Primary Care Provider, Family Practice] Stand Alone Forms: NVEL[facility] Info Instructions
[2025-06-28 20:49] VITALS: O2SAT 96
[2025-06-28 21:17] LABS: Hematocrit* 27.5 % (33.0-51.0); Hemoglobin* 8.8 gm/dL (12.0-16.0); Immature Granulocytes Abs Auto 0.03 K/uL (0.00-0.30); Immature Granulocytes Pct Auto 0.3 %; Mean Corpuscular HGB Conc 32 gm/dL (32-36); Mean Corpuscular Hemoglobin 30 pg (26-34); Mean Corpuscular Volume 93 fL (80-100); RDW Coefficient of Variation % 12.7 % (11.5-15.5); Red Blood Count* 2.95 m/uL (4.00-5.20); White Blood Count* 9.50 K/uL (4.50-11.00)
[2025-06-28 21:21] LABS: Lymphocytes Absolute Auto 0.80 K/uL (0.90-2.90); Slide Review Reflex No
[2025-06-28] MEDS: 0.9 % SODIUM CHLORIDE 500 ML 500 ML IV (21:31)
[2025-06-28 21:33] VITALS: BP 101/90; PULSE 80; RESP 20; O2SAT 97
[2025-06-28 21:36] LABS: D Dimer Quantitative* 1.23 ug/ml (0.00-0.50)
[2025-06-28 21:42] LABS: Albumin* 3.3 g/dL (3.3-5.0); Chloride* 93 mmol/L (96-114); Potassium* 4.6 mmol/L (3.6-5.1); Sodium* 125 mmol/L (135-149)
[2025-06-28 21:45] LABS: Alanine Aminotransferase* 9 U/L (4-35); Alkaline Phosphatase* 88 U/L (40-150); Anion Gap 4 mEq/L (7-15); Aspartate Amino Transferase* 26 U/L (12-35); Bilirubin Direct* 0.1 mg/dL (0.0-0.5); Bilirubin Total* 0.2 mg/dL (0.1-1.5); Blood Urea Nitrogen* 36 mg/dL (7-30); Calcium* 8.4 mg/dL (8.4-10.6); Carbon Dioxide* 28 mmol/L (20-32); Creatinine* 0.6 mg/dL (0.5-1.5); Est. Creatinine Clearance* 34.99; Estimated Glomerular Filt Rate 92 ml/min; Glucose* 116 mg/dL (60-115); Total Protein* 5.9 g/dL (6.0-8.3)
[2025-06-28 21:56] LABS: PCR FLU A Negative PCR FLU A (Negative); PCR FLU B Negative PCR FLU B (Negative); PCR RSV Negative PCR RSV (Negative); SARS PCR* Negative SARS-CoV-2 (Negative)
[2025-06-28 22:02] VITALS: BP 111/75; PULSE 78; RESP 15; O2SAT 97
--- NOTE | 2025-06-28 22:09 | CRLHL7_ITS ---
For Patients: As a result of the Century Cures Act, medical imaging exams and procedure reports are released immediately into your electronic medical record. You may view this report before your referring provider. If you have questions, please contact your health care provider. INDICATION: Elevated D-dimer, near-syncope. TECHNIQUE: CT chest PE was acquired with 99 cc Isovue 370 IV contrast. MIP reconstructions were performed. COMPARISON: None. FINDINGS: Heart and vasculature: Contrast opacification of the pulmonary arterial tree is adequate. No sign of pulmonary embolism. Heart size is normal. Thoracic aorta and pulmonary artery are normal in caliber. Lungs and pleura: No suspicious nodules or infiltrates. Scattered atelectasis. No pleural effusions, pleural thickening, or pneumothorax. Lymph nodes/mediastinum: No mediastinal, hilar, or axillary adenopathy. Chest wall: No masses. Upper abdomen: No acute or significant findings. Bones: Age-indeterminate T3, T6, T10, and L1 compression deformities, likely chronic. Recommend correlation with point tenderness. IMPRESSION: No pulmonary embolism. No focal consolidations. Please note that all CT scans at this facility use dose modulation, iterative reconstruction, and/or weight-based dosing when appropriate to reduce radiation dose to as low as reasonably achievable. Dictated by Anselmo Cervantes MD @ 06/28/2025 11:25:11 PM (Electronically Signed)
--- NOTE | 2025-06-28 22:10 | CRLHL7_ITS ---
For Patients: As a result of the Century Cures Act, medical imaging exams and procedure reports are released immediately into your electronic medical record. You may view this report before your referring provider. If you have questions, please contact your health care provider. INDICATION: Recent abdominal pain, near syncope, new anemia. TECHNIQUE: CT abdomen and pelvis acquired with 95 cc Isovue 370 IV contrast. COMPARISON: None. FINDINGS: Lower chest: Unremarkable. Liver: Unremarkable. Normal in size and attenuation. No suspicious masses. Gallbladder and bile ducts: Unremarkable. No stones or inflammation. No biliary dilatation. Pancreas: Unremarkable. No mass or inflammation. Spleen: Unremarkable. Normal in size. No masses. Adrenal glands: Unremarkable. No nodules. Kidneys: Unremarkable. No suspicious masses, stones, or hydronephrosis. GI tract: Colonic diverticulosis without diverticulitis. No bowel obstruction. Normal appendix. Vasculature: Aortoiliac arterial calcifications. Abdominal aorta is normal in caliber. Mesenteric arteries are patent. Lymph nodes: No lymphadenopathy. Peritoneum/Abdominal Wall: Unremarkable. No sign of mass or infiltration. No free air or significant free fluid. Pelvis: Mildly distended bladder with circumferential wall thickening. Recommend correlation with urinalysis if UTI is suspected.. Bones: Age-indeterminate L1 and L2 compression deformities, likely chronic. Recommend correlation with point tenderness. IMPRESSION: No acute intra-abdominal/pelvic abnormality. Chronic findings as above. Please note that all CT scans at this facility use dose modulation, iterative reconstruction, and/or weight-based dosing when appropriate to reduce radiation dose to as low as reasonably achievable. Dictated by Anselmo Cervantes MD @ 06/28/2025 11:29:47 PM (Electronically Signed)
[2025-06-28 22:52] LABS: Appearance Urine Clear (Clear)
[2025-06-28 23:30] VITALS: BP 126/79; PULSE 89; RESP 20; O2SAT 97
[2025-06-28 23:33] VITALS: BP 109/74; BP 125/75; BP 128/60
== END 2025-06-29 | disposition home or self-care (01) ==
PROVIDERS: Emergency Provider Family Medicine; PCP Family Medicine
DX: R55 Syncope and collapse (principal); D64.9 Anemia, unspecified; E87.1 Hypo-osmolality and hyponatremia; F17.210 Nicotine dependence, cigarettes, uncomplicated
CPT/HCPCS: 36415; 71275; 74177; 80048; 80076; 81001; 84484; 85025; 85379; 87631; 93005; 94761; 99284; 99285; J7030; Q9967

== ENCOUNTER 2025-07-02 18:11 | Inpatient (IN) | payer MEDICARE, BC, SELFPAY ==
[2025-07-02] VITALS (10 sets, daily range): BP systolic 137–151; BP diastolic 80–90; PULSE 80–94; RESP 12–24; TEMP 36.4–36.5; O2SAT 86–100; BMI 23.0
--- OUTSIDE RECORDS SUMMARY | 2025-07-02 18:13 | XMS_ITS | Clinical Summary ---
Author Organization [employer] [facility] Address [address] [place] [address] Care Team Providers Care Mining Engineering Technologist Name Role Phone Santy Norris Raj Unavailable [phone] Jose Maria Skinner MD Unavailable [phone] RalphDahiana warren MD Primary Care Provider Allergies Active AllergyReactionsCriticalityNoted DateCommentsChlorthalidoneOther - Describe In Comment Field09/23/2010 Hypokalemia Rcixiybwsele69/11/3190YmtmdmheezypksmanjgLjlrvqsehbud19/05/2011LatexRash 06/21/2012 Slight red itchy hands from latex [...] 90 Tablet 5Active Active Problems ProblemNoted DateDiagnosed DtptDwfrpyyofakk77/29/2025Depression, recurrent 2Adenomatous colon polyp11/26/2014 Overview (05/16/2022): Colonoscopy 11/2014 multiple large polyps, a large polyp at 25 cm was unresectable and will need to be removed with surgery Colonoscopy 04/2022 large TA, repeat in 3 years Gfynoxafvx87/21/2011 Overview (11/03/2010): suspect psoriasis Tobacco use yuwezcqk38/23/2011Elevated wcphbkx9809/30/2010Vitamin D deficiency 07/01/2009Hypertension Encounters DateTypeDepartmentCare DzvoUdcdkwwafbo13/15/2025Nurse Triage [facility] [address] [place] [address] [address] Dahiana Rosas MD Appointment Request; Ibtaka2106/28/2025Orders Only [facility] Scanner 1 scan: (1-Ord) VISTA, ABDOMEN PELVIS W CONTRAST, Orders Only [facility] Scanner 1 scan: (1-Ord) SANJEEV, ANGIO CHEST PE PROTOCOL, Results Follow-Up [facility] [address] [place] [address] [address] Dahiana Rosas MD 06/19/2025 7:30 AM CSTNurse/Clinic Staff Only [facility] [address] [place] [address] Testing (HST Download.)06/19/20251825Puwylj84/04/2025 2:00 PM CSTNurse/Clinic Staff Only [facility] [address] [place] [address] Testing (HST Setup)06/18/2025Procedure Only [facility] [address] [place] [address] [address] [facility] [address] [place] [address] Pb Wilkinson MD Results (HST)06/17/20258322Ryklyx42/29/2025 9:40 AM CDTOffice Visit [facility] [address] [place] [address] Dahiana Rosas MD Medicare ANNUAL (subsequent) Visit (79 yr/Also follow up from recent UTI, feeling better but have questions)05/13/20256322Fjeznl50/21/2025Orders Only [address] [address] Jose Maria Skinner MD <No scans attached>04/21/2025 1:45 PM CDTOffice Visit [address] [address] Chacha Alanis, DO UTI (Burning with urination x2-3 weeks); Vaginal Discharge (Burning/thick discharge - started OTC monistat, some improvement in symptoms); Derm Problem (Dry patchy areas on elbows, around lips, ears,nose )04/21/20252817Wuvkww35/06/2025 Telephone [facility] [address] [place] [address] Dahiana Rosas MD UTI (From triage on 04/17)04/17/2025Nurse Triage [facility] [address] [place] [address] Dahiana Rosas MD Pain On Udxhheind32/03/2025Telephone [address] [address] Dahiana Rosas MD Appointment Request (UTI )from Last 3 Months Immunizations ImmunizationAdministration DatesNext DueCOVID-19 vaccine (Cyber-Rain 30mcg/0.3mL) MD GOODV10/05/2020,09/14/2020Hepatitis B (Adult)12/03/2000, 06/20/2000,05/11/2000Influenza, High-dose Quadrivalent Hhlgizeghjs76/04/2022 Influenza, IIV3 (Age >=3 years)06/21/2012,04/15/2009Influenza, SUF77208/12/2019, 06/21/2012Influenza, Inactivated IIV3 (Age 65+ Years) Preserv Free08/12/2019 Pneumococcal Poly,23-Valent (Pneumovax)09/15/2013Pneumococcal conj 13-Valent (Prevnar 13)11/03/2014Td (Age >=7 Years)06/03/2009Td, Preservative Free (age >= 7 Years)06/03/2009Tdap09/23/2010 Family History Medical HistoryRelationNameCommentsDiabetesBrotherCancerFatherprostate at 78 of CVAHeart DiseaseMotherMI 2008HypertensionMotherat 89, with rapid heart beat.Anesthesia ProblemNo Family HistoryBlood DiseaseNo Family History Cancer-breastNo Family HistoryRelationNameStatusCommentsBrotherFatherMother Social History Tobacco UseTypesPacks/DayYears UsedDateSmoking Tobacco: Every CghArlqkcfxwe963 Started: 1966Smokeless Tobacco: Never Tobacco Cessation:Ready to Q uit: Yes; Counseling Given: Not Answered Comments:in the process of quitting, 20 cigarettes a day Alcohol UseStandard Drinks/WeekCommentsYes0 (1 standard drink = 0.6 oz pure alcohol)1-2 glasses wine several days a week.PHQ-2AnswerDate RecordedPHQ-2 TOTAL SNEJT934Social ConnectionsAnswerDate RecordedDo you often feel lonely or isolated from those around you?lcohol UseAnswerDate RecordedHow often do you have a drink containing alcohol?How many drinks containing alcohol do you have [...] InformationValueDate RecordedSex Assigned at BirthNot on fileLegal OehRsgzgj04/14/2013 6:25 AM CSTGender IdentityNot on fileSexual OrientationNot on file Last Filed Vital Signs Vital SignReadingTime TakenCommentsBlood Rwienpzy724/8205/13/2025 9:54 AM CDT Fsbct676905/13/2025 9:54 AM PFSCtfhrruavus38.6 ??C (97.8 ??F)06/10/2018 11:14 AM CSTRespiratory Uluy871602/02/2015 9:55 AM CDTOxygen Edsmahakzb65%05/13/2025 9:54 AM CDTInhaled Oxygen Concentration--Ofreke37.5 kg (118 lb)05/13/2025 9:54 AM CDT Mltyhe980.4 cm (5')05/13/2025 9:54 AM CDTBody Mass Index23.0505/13/2025 9:54 AM CDT Plan of Treatment DateTypeDepartmentCare Team (Latest Contact Info)Ibrdfjkkvka58/22/2025 2:15 PM CSTOffice Visit [facility] [address] [place] [address] Dahiana Rosas MD [address] [place] [address] 07/23/2025 8:00 AM CSTOffice Visit [facility] [address] [place] [address] Pb Wilkinson MD [address] [place] [address] Health MaintenanceDue DateLast DoneCommentsZoster (shingles) series for age 50+ (1 of 2)1996Tetanus lnzckee97/11/395983/05/2011, 06/03/2009, 06/03/2009RSV vaccine for adults or (1 - 1-dose 75+ series)2COVID-19 vaccine series ( season)/01/2025, 04/18/2022, 11/29/2021, Additional history existsInfluenza Vaccine (#1), 08/12/2019, 06/21/2012, Additional history existsLow Dose CT (for lung CA) age 50-80 , 3BMI (ht and wt on same day) for age 18+ , 04/30/2024, 01/08/2023, Additional history exists Depression screening for age 12+, 04/30/2024, 01/08/2023, Additional history existsMedicare Wellness for age 65+, 04/30/2024, 01/08/2023, Additional history existsHepatitis B series for 19+ Enjpxkkho86/21/2001, 06/20/2000, 05/11/2000Pneumococcal series for age 50+ Bzbbpmlzl58/21/2015, 09/15/2013Hepatitis C screening for age 18-79Completed 08/12/2019DEXA/DXA scan for age 65+Eqowxpcnz90/18/2023, 07/18/2001 Procedures Procedure NamePriorityDate/TimeAssociated DiagnosisCommentsSCAN-CT PQZDQFXMMYXTAR66/14/2025 12:00 AM CSTSCAN-CT GRDRSHOMCSXDYN96/14/2025 12:00 AM CSTHOME SLEEP TEST TYPE 3 XNFNTDRPWsvxtxd51/04/2025 11:59 PM WHISKEY FILTERER Loud snoring BASIC METABOLIC ZXQTOLqblwnd86/29/2025 10:38 AM CDT HTN (hypertension) GLUCOSE, HJFZYPLtjymhn49/07/2025 3:01 PM CDT Yeast dermatitis CBC W PLT NO DKYRGmrbovb96/07/2025 3:01 PM CDT Allergic dermatitis Yeast dermatitis TRICHOMONAS, RENY, AND BACTERIAL VAGINOSIS BY YBUWjpirds67/07/2025 2:38 PM CDT Vaginal discharge URINALYSIS PZNRBVBKUUUXltxnef22/07/2025 1:50 PM CDT UTI symptoms URINE GYJHRMBWivzbcm86/07/2025 1:50 PM CDT UTI symptoms URINALYSIS [facility] CLINICS ONLY POC DIP ([facility])Fdfszgi7204/21/2025 1:50 PM CDT UTI symptoms CT CHEST SCREENING LOW DOSE WO MPTVFJUTZeopttx87/16/2024 3:20 PM CDT Personal history of nicotine dependence XR DXA BONE DENSITY 2 SITES EAXLSWzqgiap25/18/2023 9:54 AM CDT Closed fracture of sacrum with routine healing, unspecified portion of sacrum, subsequent encounter Postmenopausal ANTI IWMArbaqsz74/28/2020 2:21 PM WHISKEY FILTERER Need for hepatitis C screening test from Last 3 Months or Most Recently Relevant to Health Maintenance Results * SCAN-CT INTERPRETATION (06/28/2025 12:00 AM WHISKEY FILTERER) Only the most recent of2 resultswithin the time period is included. Anatomical RegionLateralityModalityOther Narrative Authorizing ProviderResult TypeResult StatusScannerOTHERFinal Result * HOME SLEEP TEST TYPE 3 PORTABLE (06/18/2025 11:59 PM WHISKEY FILTERER) Narrative Pb Wilkinson MD - 06/18/2025 11:59 PM WHISKEY FILTERER Pb Wilkinson MD 06/21/2025 10:39 AM Home Sleep Test Name: ??Donovan Anna Location: ??[facility] notes: This is a single night home [...] and interpreted by a Diplomate of the [place] [employer]. ??Raw summary data [...] 0.3 m Authorizing ProviderResult TypeResult StatusDahiana Rosas [facility] Final Result * (ABNORMAL) BASIC METABOLIC PANEL (05/13/2025 10:38 AM CDT)ComponentValueRef RangeTest MethodAnalysis TimePerformed AtPathologist PffqogbyuGUCHJA338(L)135 - 146 mmol/L1 3:53 AM CDTQUEST DIAGNOSTICSPOTASSIUM4.53.5 - 5.3 mmol/L1 3:53 AM CDTQUEST DIAGNOSTICSCARBON GDCOBMP4740 - 32 mmol/L 05/14/2025 3:53 AM CDTQUEST CANLUUYFREEJTBXUFT9464 - 99 mg/dL05/14/2025 3:53 AM CDTQUEST DIAGNOSTICSComment: ? Fasting reference interval CALCIUM9.48.6 - 10.4 mg/dL05/14/2025 3:53 AM CDTQUEST DIAGNOSTICSCREATININE0.43 (L)0.60 - 1.00 mg/dL05/14/2025 3:53 AM CDTQUEST DIAGNOSTICSBUN/CREATININE RATIO 26(H)6 - 22 (calc)05/14/2025 3:53 AM CDTQUEST UTTTFUTEDAYVYUT52> OR = 60 mL/min/1.81v68405/14/2025 3:53 AM CDTQUEST DIAGNOSTICSUREA NITROGEN (BUN)117 - 25 mg/dL05/14/2025 3:53 AM CDTQUEST DIAGNOSTICSELECTROLYTE BRRZJIS74 - 17 mmol/L (calc)05/14/2025 3:53 AM CDTQUEST FFEUOOWSFPFKIPSTZDT65(L)98 - 110 mmol/L 05/14/2025 3:53 AM CDTQUEST DIAGNOSTICSSpecimen (Source)Anatomical Location / LateralityCollection Method / VolumeCollection TimeReceived TimeBloodBLOOD SPECIMEN / UnknownQuest Collect / Bqjeeww7305/13/2025 10:38 AM CDT1 10:38 AM CDT Narrative Authorizing ProviderResult TypeResult StatusDahiana Flor Ralph MDCHEMISTRY Final ResultPerforming OrganizationAddressCity/State/ZIP CodePhone Number [facility] [address] [address], [place] [phone] * GLUCOSE, RANDOM (04/21/2025 3:01 PM CDT)ComponentValueRef RangeTest Method Analysis TimePerformed AtPathologist SignatureGLUCOSE, OXCPGW78<140 mg/dL 04/22/2025 4:06 AM CDTQUEST DIAGNOSTICSSpecimen (Source)Anatomical Location / LateralityCollection Method / VolumeCollection TimeReceived TimeBloodBLOOD SPECIMEN / UnknownQuest Collect / Ezfotsv0304/21/2025 3:01 PM CDT1 3:01 PM CDT Narrative Authorizing ProviderResult TypeResult StatusSiri Johana Alanis DOCHEMISTRYFinal ResultPerforming OrganizationAddressCity/State/ZIP CodePhone Number [facility] [address] [address], * CBC W PLT NO DIFF (04/21/2025 3:01 PM CDT)ComponentValueRef RangeTest Method Analysis TimePerformed AtPathologist SignatureWHITE BLOOD CELL COUNT6.33.8 - 10.8 Thousand/uL04/22/2025 3:17 AM CDTQUEST DIAGNOSTICSRED BLOOD CELL COUNT 4.683.80 - 5.10 Million/uL04/22/2025 3:17 AM CDTQUEST DIAGNOSTICSHEMOGLOBIN 14.511.7 - 15.5 g/dL04/22/2025 3:17 AM CDTQUEST UHKVOVERTOPCOQTTMMVBA88.335.0 - 45.0 %04/22/2025 3:17 AM CDTQUEST TIKLFLOIQGQJOR25.780.0 - 100.0 fL 04/22/2025 3:17 AM CDTQUEST KESUPZZZFIXTJQ50.027.0 - 33.0 pg04/22/2025 3:17 AM CDTQUEST CPHPFXGQHQZTEFZ58.732.0 - 36.0 g/dL04/22/2025 3:17 AM CDTQUEST DIAGNOSTICSComment: For adults, a slight decrease in the calculated MCHC value (in the range of 30 to 32 g/dL) is most likely not clinically significant; however, it should be interpreted with caution in correlation with other red cell parameters and the patient's clinical condition. RDW12.411.0 - 15.0 %04/22/2025 3:17 AM CDTQUEST DIAGNOSTICSPLATELET BEDCQ213094 - 400 Thousand/uL04/22/2025 3:17 AM CDTQUEST GMVECXSTHLFHFC69.47.5 - 12.5 fL 04/22/2025 3:17 AM CDTQUEST DIAGNOSTICSSpecimen (Source)Anatomical Location / LateralityCollection Method / VolumeCollection TimeReceived TimeBloodBLOOD SPECIMEN / UnknownQuest Collect / Prplzcv6604/21/2025 3:01 PM CDT1 3:01 PM CDT Narrative Authorizing ProviderResult TypeResult StatusSiri [facility] DOHEMATOLOGYFinal ResultPerforming OrganizationAddressCity/State/ZIP CodePhone Number [facility] [address] [address], * (ABNORMAL) TRICHOMONAS, RENY, AND BACTERIAL VAGINOSIS BY CANDELARIA [[id number]] - vaginal (04/21/2025 2:38 PM CDT)ComponentValueRef RangeTest MethodAnalysis TimePerformed AtPathologist SignatureCANDIDA XUSRIYVBtwlwosiPtmehxce82/08/2025 11:01 PM CDVC[facility] LAB[facility]-CENTRAL LABORATORYCANDIDA GLABRATA CnmnznbpIkfhpiog42/08/2025 11:01 PM CDVCU [facility] LAB[facility]ATORY-CENTRAL LABORATORYTRICHOMONAS XRCKdnsxdrhJmxkyxvm85/08/2025 11:01 PM CDVC[facility] LAB[facility]-CENTRAL LABORATORYBACTERIAL VAGINOSISPositive(A)Igekjuwp83/08/2025 11:01 PM CDTALLIN HEALTH LABORATORYCENTRAL LABORATORYSpecimen (Source) Anatomical Location / LateralityCollection Method / VolumeCollection Time Received TimeOtherVAGINAL SWAB / UnknownNon-Blood / Bvkflao5304/21/2025 2:38 PM CDT1 3:17 PM CDT Narrative Authorizing ProviderResult TypeResult StatusSiri Johana Shaqra DOMICROBIOLOGYFinal ResultPerforming OrganizationAddressCity/State/ZIP CodePhone Number [facility]OR[facility] [address] [address], * (ABNORMAL) POCT Urinalysis Dipstick Only [[id number]] (04/21/2025 1:50 PM CDT) ComponentValueRef RangeTest MethodAnalysis TimePerformed AtPathologist SignatureSPECIFIC GRAVITY1.0151.001 - 1.6717404/21/2025 2:06 PM [facility] LPMIQUGMYHSKHYSVZPPMHPOESOIUF64/07/2025 2:06 PM [facility]ENTERGLUCOSENEGATIVENEGATIVE04/21/2025 2:06 PM [facility] SCNTEVZLPYIDSLDMXVPOSCTAHNVKS67/07/2025 2:06 PM [facility]ENTERBILIRUBINNEGATIVENEGATIVE04/21/2025 2:06 PM [facility]ENTEROCCULT BLOOD1+(A)CRWSCRFN66/07/2025 2:06 PM [facility]ENTERNITRITENEGATIVENEGATIVE04/21/2025 2:06 PM [facility] CLINICPH6.55.0 - 8.010 2:06 PM [facility]ENTERLEUKOCYTE ESTERASE2+(A)SQNWNQMY47/07/2025 2:06 PM [facility] CLINICSpecimen (Source)Anatomical Location / LateralityCollection Method / VolumeCollection TimeReceived TimeUrineURINE SPECIMEN / UnknownNon- Blood / Lhqxxqi5104/21/2025 1:50 PM CDT1 2:00 PM CDT Narrative Authorizing ProviderResult TypeResult StatusSiri Johana Shaqra DOURINEFinal Result Performing OrganizationAddressCity/State/ZIP CodePhone Number [facility] [address] [place] [address], [place] [phone] [facility] [address] [place] [address], [place] [phone] * (ABNORMAL) URINALYSIS MICROSCOPIC [99549.1] - routine (04/21/2025 1:50 PM CDT) ComponentValueRef RangeTest MethodAnalysis TimePerformed AtPathologist MpurdmmmvKFN6-40-5, None Seen /HPF04/22/2025 7:53 AM [facility]-CENTRAL COOFTYMSBOCAR30-05(A)0-2, 3-5, None Seen /HPF04/22/2025 7:53 AM [facility]CENTRAL LABORATORYBACTERIANone SeenNone Seen, Rare, Few Bacteria/HPF04/22/2025 7:53 AM CDCROSSROADS BEH[facility]IORAL [facility]- CENTRAL LABORATORYEPITHELIAL CELLSNone SeenNone Seen, Few Epi/HPF04/22/2025 7:53 AM [facility]-CENTRAL LABORATORYHYALINE CASTS0-20-2, 3-5 /LP04/22/2025 7:53 AM [facility]-CENTRAL LABORATORYSpecimen (Source)Anatomical Location / LateralityCollection Method / VolumeCollection TimeReceived TimeUrineURINE SPECIMEN / UnknownNon-Blood / Wloqwbz5004/21/2025 1:50 PM CDT1 2:00 PM CDT Narrative Authorizing ProviderResult TypeResult StatusSiri Johana Alanis DOURINEFinal Result Performing OrganizationAddressCity/State/ZIP CodePhone Number [facility]EN[facility] [address] [place] [address], [place] * URINE CULTURE [71732.2] (04/21/2025 1:50 PM CDT)ComponentValueRef RangeTest MethodAnalysis TimePerformed AtPathologist SignatureCULTURENo growth (<1,000 CFU/mL)04/23/2025 10:57 AM [facility] Specimen (Source)Anatomical Location / LateralityCollection Method / Volume Collection TimeReceived TimeUrineURINE SPECIMEN / UnknownNon-Blood / Unknown 04/21/2025 1:50 PM CDT1 2:00 PM CDT Narrative Authorizing ProviderResult TypeResult StatusSiri Johana Alanis DOMICROBIOLOGYFinal ResultPerforming OrganizationAddressCity/State/ZIP CodePhone Number [facility] LAB[facility] [address] [place] [address], [place] * CT CHEST SCREENING LOW DOSE WO CONTRAST [[id number]] -- Criteria: must meet ALL: Age 50-80, [...] by: Derik Foote MD @04/30/2024 6:41:06 PM /keren Neuroradiologist Narrative 05/01/2024 8:51 AM CDT For [...] not significantly changed. Authorizing ProviderResult TypeResult StatusDahiana Millerper MDCTFinal Result * (ABNORMAL) XR DXA BONE [...] to assess therapeutic efficacy. Joann Casas PA-C [facility] 11/30/2022 Narrative 11/30/2022 12:13 PM CDT For Patients: Results are automatically released to your [facility] (YinYangMap) account once available, in compliance with federal regulations. This means that you may see your results before your provider has had a chance to review them. Please allow 2-3 business days for your provider to comment on the results. XR DXA Bone Mineral Density (BMD) EXAM LOCATION: [facility] [address] [facility] [address] PATIENT NAME: Donovan Anna DATE OF : 1945 EXAM DATE: 11/30/2022 REQUESTING PROVIDER: Chacha Alanis DO GENDER AT : female HEIGHT: 5' [...] two scanners are made by the same remelt sugar boiler. PROCEDURE: Dual-energy x-ray absorptiometry performed with routine [...] -2.5 SD Authorizing ProviderResult TypeResult StatusSiri Johana Shanitzara DODEXAFinal Result * ANTI HCV (08/12/2019 2:21 PM WHISKEY FILTERER)ComponentValueRef RangeTest MethodAnalysis TimePerformed AtPathologist SignatureHEPATITIS C ANTIBODYNon-Reactive Non-Nepubbwl52/28/2020 9:46 PM CSTNOR[facility]FL[facility] Comment:Antibodies to HCV not detected; does not exclude the possibility of exposure to HCV.Specimen (Source)Anatomical Location / LateralityCollection Method / VolumeCollection TimeReceived TimeBloodBLOOD SPECIMEN / Unknown Venipuncture / Rtsmwyh6008/12/2019 2:21 PM CST08/12/2019 2:21 PM WHISKEY FILTERER Narrative Authorizing ProviderResult TypeResult StatusDahiana Flor Ralph MDSEND OUTS Final ResultPerforming OrganizationAddressCity/State/ZIP CodePhone Number [facility] [address] [place] [address], from Last 3 Months or Most Recently Relevant to Health Maintenance Insurance * Guarantor: Donovan Anna EAccount TypeRelation to PatientDate of BirthPhone Billing AddressPersonal/QwarowXsda26/13/1946 [address] [place] [address] * Guarantor: Donovan Anna TypeRelation to PatientDate of BirthPhone Billing AddressWorkers MoqlZzmu51/13/1946 [address] [address] Advance Directives * Full Code (Latest Code Status on File) Date ActivatedDate InactivatedComments02/02/2015 5:55 AM02/02/2015 12:33 PM Care Teams Team MemberRelationshipSpecialtyStart DateEnd Date Dahiana Rosas MD [address] [place] [address] PCP - GeneralFamily Nwsywseq33/7/25 Santy Norris [address] [place] [address] Jwvcfhfjbcs01/7/12 Jose Maria Skinner MD [address] [place] [address] GastroenterologyInternal Medicine12/03/15
--- NOTE | 2025-07-02 19:07 | ED.GENADULT ---
HPI - General Adult General Date Seen: 07/02/25 Chief complaint: Abdominal Pain Stated complaint: trouble breathing, stomach pain Time Seen by Provider: 07/02/25 19:03 History of Present Illness HPI narrative: 79-year-old female presenting to the ER today with concern for twinges of abdominal pain. She reported that she was here few days ago for similar symptoms. Per medical record she was here 4 days ago on 06/28. She had had an episode of near syncope at home and felt like malone did have a bowel movement. Per that note she had had some heartburn symptoms the week prior and had been taking some Tums. That night she had been trying to pass a bowel movement but not producing stool and then got off the toilet to walk to her kitchen and got sweaty, dizzy and lightheaded. She threw up 2 times. In the ER pulse was 82, blood pressure 123/86, O2 98% room air, temp was 96.6?. Laboratory workup showed: WBC 9.5, hemoglobin 8.8 (down from 14.3 in May 2024), platelet count 443 (up from 264) D-dimer was 1.23, prompted chest CT which was negative for PE. Sodium was low at 125, potassium 4.6, chloride 93, bicarb 28, BUN 36, creatinine 0.6, glucose 116, calcium 8.4. Total bilirubin was 0.2. AST 26, ALT 9, alk-phos 88. Troponin was less than 0.01. Delta high sensitivity troponins were normal at 2.9. Urinalysis was normal. COVID/influenza/RSV were negative. CT PA of her chest IMPRESSION: No pulmonary embolism. No focal consolidations. CT of her abdomen pelvis IMPRESSION: No pulmonary embolism. No focal consolidations. She returns to the ER tonight because she is feeling worse again. She notes that she did have a fairly large bowel movement on Sunday and was black colored. She is not on Pepto-Bismol, iron, or any other medicines that would cause black stool. She has been having some occasional heartburn so has been taking Tums a couple of times this week. She felt quite a bit better on Sunday and Sunday yesterday. However today she is feeling worse again she. She is more short of breath. She is feeling a little bit more weak and lightheaded (but not nearly as dizzy and lightheaded and weak is that she had felt on Sunday). She is also having recurrent of sharp pain across her upper abdomen and radiating down the left side. Knowing that she was getting worse again she decided to come back to the ER by private car now, rather than wait until she got so dizzy that she had to call the ambulance again. She does have trouble with some chronic back arthritis so takes Motrin every day at bedtime and sometimes take us a 2nd dose of Motrin overnight. She does not typically take Motrin during the day. She is not on any other anticoagulant safe for baby aspirin. She takes lisinopril and amlodipine for blood pressure. She has no previous history of peptic ulcer disease. No history of colon cancer. She says she has been diagnosis COPD. She continues to smoke cigarettes but is trying to quit. She says it is hard to do that because her refuses to quit smoking. No new cough . No fever. No known sick contacts. No chest pain. No urinary symptoms. No flank pain. Related Data Home Medications ?Medication ?Instructions ?Recorded ?Confirmed aspirin 81 mg chewable tablet 81 mg PO DAILY 05/19/22 05/20/24 (Aspirin [facility]) lisinopril 40 mg tablet 40 mg PO DAILY 05/20/24 05/20/24 amlodipine 5 mg tablet 5 mg PO DAILY 07/02/25 07/02/25 Allergies Allergy/AdvReac Type Severity Reaction Status Date / Time chlorthalidone Allergy hypokalemia Verified 07/02/25 20:06 erythromycin base (From Allergy Verified 07/02/25 20:06 Erythrocin) hydrochlorothiazide Allergy hyponatremi Verified 07/02/25 20:06 a latex Allergy Verified 07/02/25 20:06 [facility] Medical History Adenomatous colon polyp ?D12.6 - Benign neoplasm of colon, unspecified (ICD-10) Dermatitis ?L30.9 - Dermatitis, unspecified (ICD-10) Vitamin D deficiency ?E55.9 - Vitamin D deficiency, unspecified (ICD-10) Surgical History Abnormal colonoscopy ?R93.3 - Abnormal findings on diagnostic imaging of other parts of digestive tract (ICD-10) History of hand surgery ?Z98.890 - Other specified postprocedural states (ICD-10) Family History Other Coronary artery disease High cholesterol Stroke Social History Narrative: 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 She doesn't use recreational drugs. Smoking Status: Current every day smoker What tobacco products do you use: cigarettes Smoking packs per day: 1 Smoking cigarettes per day: 20.0 Do you use any of these nicotine containing products: None Second hand tobacco smoke exposure: No How often do you have a drink containing alcohol: 4 or more times a week Alcohol type: wine How many standard drinks containing alcohol do you have on a typical day: 1 or 2 How often do you have six or more drinks on one occasion: Never AUDIT-C Alcohol total score: 4 Non-prescribed substance use: denies use Caffeine: Yes Are you using contraception or practicing any form of control: No service: No Exam Narrative: Exam Narrative: Constitutional: Appears well-developed and well-nourished. Alert. Conversant. Mildly short of breath, able to speak about fiber 10 word sentences. HENT: Head: Atraumatic. Nose: Nose normal. Mouth/Throat: Oral mucosa is clear and moist. no trismus. Pharynx normal. Tonsils symmetric. No tonsillar enlargement, erythema, or exudate. Eyes: Conjunctivae pale. EOM normal. Pupils equal, round, and reactive to light. No scleral icterus. Neck: Normal range of motion. Neck supple. No tracheal deviation present. Cardiovascular: Normal rate, regular rhythm. No gallop. No friction rub. No murmur heard. Symmetric radial artery pulses Pulmonary/Chest: Effort normal. No stridor. No respiratory distress. Scares bilateral wheezes. No rales. No rhonchi . No tenderness. Abdominal: Soft. Bowel sounds normal. No distension. No mass. Epigastric, right upper quadrant, left upper quadrant, left lower tenderness. No definite peritoneal findings. No rebound. No guarding. Musculoskeletal: RUE: Normal range of motion. No tenderness. No deformity LUE: Normal range of motion. No tenderness. No deformity RLE: Normal range of motion. No edema. No tenderness. No deformity LLE: Normal range of motion. No edema. No tenderness. No deformity Neurological: Alert and oriented to person, place, and time. Normal strength. CN II-VII intact. No sensory deficit. GCS eye subscore is 4. GCS verbal subscore is 5. GCS motor subscore is 6. Normal coordination Skin: Skin is pale but warm and dry. No rash noted. No pallor. Normal capillary refill. Psychiatric: Normal mood. Normal affect. Const: Vital Signs, click to edit/add: Vital Signs - 24 hr 07/02/25 18:21 07/02/25 20:42 07/02/25 21:18 Temperature 97.6 F Pulse Rate 90 Pulse Rate [Pulse Oximeter] 84 Respiratory Rate 24 22 Blood Pressure 137/84 Blood Pressure [Ri ght Upper Arm] 149/80 H Pulse Oximetry 91 86 L 96 Oxygen Delivery Me thod Room Air Nasal Cannula Oxygen Flow Rate 1.5 07/02/25 21:32 07/02/25 21:56 07/02/25 22:02 Temperature Pulse Rate 86 94 88 Pulse Rate [Pulse Oximeter] Respiratory Rate 12 21 19 Blood Pressure 142/88 H 151/90 H 138/80 Blood Pressure [Ri ght Upper Arm] Pulse Oximetry 100 95 96 Oxygen Delivery Me thod Nasal Cannula Nasal Cannula Nasal Cannula Oxygen Flow Rate 1.5 1.5 1.5 Course Course ED Course: Recheck was up to the bathroom and cut very short of breath while walking back. Nurses checked her oxygen sats and she was hypoxic to the 80s. There about her back to the bed and put her on oxygen and sats of rebound in the 90s. I ordered a neb. Around this time CT scan result came back suggesting possibly I a lung infection. Will start antibiotics for community-acquired pneumonia. COVID swab pending. Reevaluation(s) Reevaluation #1: Recheck-patient resting in bed. Says she feels much better after starting on oxygen. Breathing easily. Sats are in the mid to high 90s on 2 L. Family at the bedside I updated on on her results so far showing peptic ulcer disease, presumed upper GI bleed, also pneumonia. Will start on antibiotics, PPI, will need admission for hemoglobin monitoring and oxygen supplementation. Vital Signs Vital signs: Initial Vital Signs Temperature 97.6 F 07/02/25 18:21 Temperature Source Temporal Artery Scan 07/02/25 18:21 Pulse Rate 84 07/02/25 18:21 Respiratory Rate 24 07/02/25 18:21 Blood Pressure 149/80 H 07/02/25 18:21 Blood Pressure Mean 103 07/02/25 18:21 Blood Pressure Position Sitting 07/02/25 18:21 Pulse Oximetry 91 07/02/25 18:21 Vital Signs Temperature 97.6 F 07/02/25 18:21 Pulse Rate 84 07/02/25 18:21 Respiratory Rate 24 07/02/25 18:21 Blood Pressure 149/80 H 07/02/25 18:21 Pulse Oximetry 91 07/02/25 18:21 Temperature 97.6 F 07/02/25 18:21 Pulse Rate 88 07/02/25 22:02 Respiratory Rate 19 07/02/25 22:02 Blood Pressure 138/80 07/02/25 22:02 Pulse Oximetry 96 07/02/25 22:02 Oxygen Delivery Method Nasal Cannula 07/02/25 22:02 Oxygen Flow Rate 1.5 07/02/25 22:02 Medications Administered Medications: Discontinued Medications Generic Name Dose Route Start Last Admin Trade Name Freq PRN Reason Stop Dose Admin Albuterol/Ipratropium 1 neb 07/02/25 20:53 07/02/25 21:20 Iprat-Albut 0.5-2.5 Mg/3 Ml Neb IH 07/02/25 20:54 1 neb ONCE ONE Administration Sodium Chloride 500 mls @ 500 mls/hr 07/02/25 19:44 07/02/25 21:49 0.9 % Sodium Chloride 500 Ml IV 07/02/25 20:43 Infused .Q1H ONE Infusion Ceftriaxone Sodium 1 gm/ 100 mls @ 200 mls/hr 07/02/25 20:42 07/02/25 21:19 Sodium Chloride IVPB 07/02/25 21:11 200 mls/hr ONCE ONE Administration Lidocaine/Aluminum/Magnesium/Simeth 30 ml 07/02/25 19:44 07/02/25 21:00 Gi Cocktail (Visc Lido/Antacid) 30 Ml PO 07/02/25 19:45 30 ml ONCE ONE Administration Pantoprazole Sodium 80 mg 07/02/25 19:44 07/02/25 21:03 Pantoprazole Sodium 40 Mg Inj IVP 07/02/25 19:45 80 mg ONCE ONE Administration Medical Decision Making MDM Narrative Medical decision making narrative: 79-year-old female returning to the ER today. She was here 4 days ago for abdominal pain associated with near syncope. She had been doing well for the past couple of days other than still having melanotic stools but today had recurrence of fairly severe pain. She is not as lightheaded today as she was on Sunday. In terms of abdominal pain differential is broad. Because of the distribution and severity of her pain I did do a repeat CT scan to make sure there was no sign of any involving signs of gastritis or perf ulcer, as well as colitis, diverticulitis, perforation, abscess, gastritis. With her upper abdominal pain also consider pancreatitis, cholecystitis, among others. Laboratory workup shows a new leukocytosis with a white count up from 9-14. She also has a thrombocytosis with a platelet count of 570, likely also reactive. Lipase is mildly abnormal at 3:34 a.m. which I think could be concerning for pancreatitis given her symptoms, but since this number is not 3 times upper limit of normal, is not definitive for pancreatitis. There was no evidence for pancreatic inflammation on CT scan Sunday or today. CT scan does show evidence for an ulcer affecting the lesser curvature of the stomach. and gastritis. No evidence for perforation. Has received IV Protonix. Patient reports that she takes ibuprofen every night at bedtime and I suspect this is probably and NSAID related. She will need admission for pain control, hemoglobin monitoring, EGD, further workup. With her melanotic stools, concern is for upper GI bleeding. Fortunately blood pressure is stable. Hemoglobin is stable as well. Was 8.8 on Sunday and is 9.0 today. She is not anticoagulated. No history of coagulopathy. Lactic acid is normal at 0.7. Lab workup shows hyponatremia with a sodium of 124. It had been 125 on Sunday. We do not have any other recent comparison is but had been 128 last year and looks like it chronically runs around 130. She is feeling a little bit weak and has nonfocal unsteadiness. I would favor that her weakness is due to the anemia and pneumonia and not related to her hyponatremia. At this point I do not think she needs hypertonic saline. We did give a gentle bolus of IV saline here in the ER because she clinically looked a little bit dehydrated/hypovolemic. Will need electrolyte monitoring in the hospital. Chloride is low at 90. Bicarb normal. Kidney function normal. She does have a mild cough. She is a smoker with baseline COPD. CT scan does suggest possible infection in the lung bases. Will treat with antibiotics for community-acquired pneumonia. Viral triple swab is negative. Although she has a history of COPD, I think her hypoxia is more being driven by the acute infection rather than bronchospasm. We did give her a nebulizer we with marginal improvement. At this point will hold off on steroids given the potential adverse effect that steroids can have with upper GI bleed. Discussed with hospitalist, Dr. Medina. She agrees to admit this patient to the hospitalist service, inpatient status. Lab Data Labs: Lab Results 07/02/25 07/02/25 Range/Units 19:35 20:56 WBC 14.06 H (4.50-11.00) K/uL RBC 3.00 L (4.00-5.20) m/uL Hgb 9.0 L (12.0-16.0) gm/dL Hct 28.4 L (33.0-51.0) % MCV 95 (80-100) fL MCH 30 (26-34) pg MCHC 32 (32-36) gm/dL RDW Coeff of Betsy 13.0 (11.5-15.5) % Plt Count 570 H (140-440) K/uL Neut % (Auto) 86.0 H (42.0-72.0) % Lymph % (Auto) 7.0 L (20-44) % [place] % (Auto) 6.8 (0.0-11.0) % Eos % (Auto) 0.0 (0.0-7.0) % Baso % (Auto) 0.1 (0.0-3.0) % Neut # (Auto) 12.10 H (1.7-7.0) K/uL Lymph # (Auto) 1.00 (0.90-2.90) K/uL [place] # (Auto) 1.00 H (0.00-0.90) K/UL Eos # (Auto) 0.00 (0.00-0.50) K/uL Baso # (Auto) 0.00 (0.00-0.30) K/uL Abs Immat Gran (auto) 0.00 (0.00-0.30) K/uL Imm/Tot Granulo (auto) 0.1 % VBG pH 7.441 H (7.32-7.43) VBG pCO2 45 (40-50) mmHG VBG pO2 < 30.1 (25-47) mmHG VBG HCO3 31 H (21-28) mmol/L Sodium 124 L* (135-149) mmol/L Potassium 3.7 (3.6-5.1) mmol/L Chloride 90 L (96-114) mmol/L Carbon Dioxide 28 (20-32) mmol/L Anion Gap 6 L (7-15) mEq/L BUN 11 (7-30) mg/dL Creatinine 0.3 L (0.5-1.5) mg/dL Estimated Creat Clear 33.30 Estimated GFR 109 ml/min Glucose 139 H (60-115) mg/dL Lactate 0.7 (0.5-1.9) mmol/L Calcium 9.1 (8.4-10.6) mg/dL Total Bilirubin 0.4 (0.1-1.5) mg/dL Direct Bilirubin 0.3 (0.0-0.5) mg/dL AST 49 H (12-35) U/L ALT 10 (4-35) U/L Alkaline Phosphatase 105 (40-150) U/L Total Protein 7.8 (6.0-8.3) g/dL Albumin 4.3 (3.3-5.0) g/dL Lipase 334 H (23-300) U/L Ethyl Alcohol < 0.01 (0.01-0.03) % SARS-CoV-2 (PCR) Negative SARS-CoV-2 (Negative) Influenza Type A (PCR) Negative PCR FLU A (Negative) Influenza Type B (PCR) Negative PCR FLU B (Negative) RSV (PCR) Negative PCR RSV (Negative) Blood Type O Negative Antibody Screen NEGATIVE Imaging Data CT scan - abdomen: Attestation: I have reviewed the pertinent imaging results. My impression: No acute perforation. No obvious abscess. No clear appendicitis or diverticulitis or other obvious inflammation. Awaiting formal read. Radiologist's impression: IMPRESSION: 1. Large lesser curvature gastric ulceration without perforation. Background of gastritis. 2. No active gastrointestinal bleeding is seen. 3. Enlarged gastrohepatic and upper retroperitoneal lymph nodes. 4. New infectious or inflammatory airways disease in the lung bases. ECG Data Attestation: I personally reviewed and interpreted this ECG as follows: Interpretation: Normal sinus rhythm Rate 93 CO interval 178 normal QRS axis. No pathologic Q-waves. No ST segment elevation or depression. Computer interpretation includes ?septal infarct, age undetermined?. I think this is not accurate. She does have a Q-wave in lead V1 and non pathologic Q-waves in leads V2 and V3. QT 386, QTC 479 Discharge Plan Discharge Clinical Impression: Peptic ulcer disease, Acute upper gastrointestinal bleeding, Anemia, Pneumonia, Hypoxia, Hyponatremia Patient Disposition: Admitted As Inpatient Procedures ABG Interpretation ABG Results: 07/02/25 19:35 VBG pH 7.441 H VBG pCO2 45 VBG pO2 < 30.1 VBG HCO3 31 H
--- NOTE | 2025-07-02 19:44 | CRLHL7_ITS ---
For Patients: As a result of the 21st Century Cures Act, medical imaging exams and procedure reports are released immediately into your electronic medical record. You may view this report before your referring provider. If you have questions, please contact your health care provider. INDICATION: Stomach pain. COMPARISON: 06/28/2025, 05/19/2022 TECHNIQUE: CT angiogram abdomen and pelvis without and with contrast, GI bleed protocol to include pre-contrast, arterial phase (CT angiography), and portal venous phase imaging. Multiplanar axial, coronal, and sagittal reformats are included. MIP images to improve detection of arterial pathology. Intravenous contrast: 95 ml Omnipaque 350. FINDINGS: Aorta and its branches: Well-timed contrast bolus. Normal caliber of the abdominal aorta. No intramural hematoma. Moderate to heavy atherosclerotic plaques. No penetrating atherosclerotic ulcers. No aortic dissection. The mesenteric vessels are patent without critical stenosis. The common, internal, and external iliac arteries are patent without critical stenosis. The common femoral arteries are patent without critical stenosis. GI: There is some wall thickening with a deep ulceration along the lesser curvature of the stomach. This measures about 2.6 x 1.8 cm on series 5, image 59. No perforation. No active bleeding. The remainder of the stomach is modestly inflamed with some mild wall thickening. No dilated or inflamed small bowel or colon. No active bleeding seen in the small bowel or colon. Moderate stool burden. Diverticulosis. The appendix is not discretely seen. Lung bases: Right worse than left subsolid nodules and distal bronchial wall thickening. Findings are new compared to prior and typical of infectious or inflammatory airways disease. Liver: Normal. No mass. Gallbladder and bile ducts: Normal gallbladder. No bile duct dilation. Pancreas: Normal. Spleen: Normal. Adrenal glands: Normal. Kidneys: Normal parenchyma. There is a small right renal cyst. No calculi. No urinary tract dilation. Urinary bladder: Normal. Pelvis: No cyst or mass. Lymph nodes: Left periaortic soft tissue just below the level of the gastric ulcer is presumably a lymph node and measures 1.5 x 1.0 cm on series 11, image 161. Enlarged aortocaval lymph node measures 1.4 x 1.0 cm on series 5, image 68. Enlarged hyperenhancing gastrohepatic lymph node measures 1.8 x 1.4 cm on series 5, image 37. Peritoneum: No ascites. Abdominal wall: No hernia. BONES: L1 and L2 compression fractures are unchanged compared to the recent comparison examination. No acute fracture. No focal bone lesions. IMPRESSION: 1. Large lesser curvature gastric ulceration without perforation. Background of gastritis. 2. No active gastrointestinal bleeding is seen. 3. Enlarged gastrohepatic and upper retroperitoneal lymph nodes. 4. New infectious or inflammatory airways disease in the lung bases. Please note that all CT scans at this facility use dose modulation, iterative reconstruction, and/or weight-based dosing when appropriate to reduce radiation dose to as low as reasonably achievable. Dictated by Sultana Rubio MD @ 07/02/2025 8:32:14 PM (Electronically Signed)
[2025-07-02 19:52] LABS: HCO3 VBG 31 mmol/L (21-28); Lactate* 0.7 mmol/L (0.5-1.9); PCO2 VBG 45 mmHG (40-50); PO2 VBG < 30.1 mmHG (25-47); pH VBG 7.441 (7.32-7.43)
[2025-07-02 19:56] LABS: Hematocrit* 28.4 % (33.0-51.0); Hemoglobin* 9.0 gm/dL (12.0-16.0); Immature Granulocytes Pct Auto 0.1 %; Mean Corpuscular HGB Conc 32 gm/dL (32-36); Mean Corpuscular Hemoglobin 30 pg (26-34); Mean Corpuscular Volume 95 fL (80-100); RDW Coefficient of Variation % 13.0 % (11.5-15.5); Red Blood Count* 3.00 m/uL (4.00-5.20); White Blood Count* 14.06 K/uL (4.50-11.00)
[2025-07-02 19:58] LABS: Chloride* 90 mmol/L (96-114); Immature Granulocytes Abs Auto 0.00 K/uL (0.00-0.30); Lymphocytes Absolute Auto 1.00 K/uL (0.90-2.90); Potassium* 3.7 mmol/L (3.6-5.1)
[2025-07-02 19:59] LABS: Slide Review Reflex No
[2025-07-02 20:01] LABS: Anion Gap 6 mEq/L (7-15); Blood Urea Nitrogen* 11 mg/dL (7-30); Calcium* 9.1 mg/dL (8.4-10.6); Carbon Dioxide* 28 mmol/L (20-32); Creatinine* 0.3 mg/dL (0.5-1.5); Est. Creatinine Clearance* 33.30; Estimated Glomerular Filt Rate 109 ml/min; Glucose* 139 mg/dL (60-115)
[2025-07-02 20:19] LABS: Sodium* 124 mmol/L (135-149)
[2025-07-02 20:50] LABS: Albumin* 4.3 g/dL (3.3-5.0)
[2025-07-02 20:53] LABS: Alanine Aminotransferase* 10 U/L (4-35); Alkaline Phosphatase* 105 U/L (40-150); Aspartate Amino Transferase* 49 U/L (12-35); Bilirubin Direct* 0.3 mg/dL (0.0-0.5); Bilirubin Total* 0.4 mg/dL (0.1-1.5); Total Protein* 7.8 g/dL (6.0-8.3)
[2025-07-02 20:58] LABS: Ethanol* < 0.01 % (0.01-0.03)
[2025-07-02] MEDS: GI COCKTAIL (VISC LIDO/ANTACID) 30 ML PO (21:00)
[2025-07-02] MEDS: PANTOPRAZOLE SODIUM 40 MG INJ 80 MG IVP (21:03)
[2025-07-02] MEDS: 0.9 % SODIUM CHLORIDE 500 ML 500 ML IV (21:14)
[2025-07-02] MEDS: cefTRIAXone 1 GM in 0.9 % SODIUM CHLORIDE Mini-bag 100 ML IVPB (21:19)
[2025-07-02] MEDS: IPRAT-ALBUT 0.5-2.5 MG/3 ML NEB 1 NEB IH (21:20)
[2025-07-02 21:45] LABS: PCR FLU A Negative PCR FLU A (Negative); PCR FLU B Negative PCR FLU B (Negative); PCR RSV Negative PCR RSV (Negative); SARS PCR* Negative SARS-CoV-2 (Negative)
[2025-07-02] MEDS: DOXYCYCLINE HYCLATE 100 MG in 0.9 % SODIUM CHLORIDE Mini-bag 100 ML IVPB (22:23)
--- NOTE | 2025-07-02 22:30 | PM.IMHP1 ---
Assessment and Plan Assessment and plan (1) Upper GI bleeding: Problem comment: -Patient's hemoglobin dropped compared to the level it was in 2023. It used to be 11 g per dL but currently it is around 9. However it is stable because 4 days ago hemoglobin was 8.8 and today it is 9 g/dL. -Melena -CT : Large lesser curvature gastric ulceration without perforation. Background of gastritis. No active gastrointestinal bleeding is seen. -PPI IV 80 mg at ED -PPI IV 40 mg BID - I asked in house cra to check if we can do upper endoscopy tomorrow and she checked and said it can be done. - Ordered H pylori antigen test. -NPO after midnight Status: Acute (2) Acute hypoxic respiratory failure: Problem comment: hypoxic at 86% O2 sat and was put on 2 L per minute oxygen nasal cannula. Likely secondary to pneumonia Ordered troponin and EKG Status: Acute (3) Community acquired pneumonia: Problem comment: WBCs elevated at [address] of the chest and abdomen showed New infectious or inflammatory airways disease in the lung bases. 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 Hospitalist- H&P: HPI History of Present Illness Date Seen: 07/02/25 Chief complaint: trouble breathing, stomach pain Narrative: Donovan Anna is a 79 year old female patient with past medical history of hypertension, chronic hyponatremia, tobacco use disorder who presents to the ED with abdominal pain and weakness. Patient presented to our ED on Sunday, that is 4 days ago for similar symptoms. Patient states that recently she noticed black stools. patient mentioned that she is using ibuprofen daily & that she has been taking Tums for heartburn. She also mentioned being sweaty and vomiting on Sunday. patient is an active smoker with cough at baseline that has not been changed recently. No sick contacts. Currently not nauseous, no diarrhea. at the ED patient was found hemodynamically stable. She was hypoxic at 86% O2 sat and was put on 2 L per minute oxygen nasal cannula. Patient's hemoglobin dropped compared to the level it was in 2023. It use to be 11 g per dL but currently it is around 9. However it is stable because 4 days ago hemoglobin was 8.8 and today it is 9 g/dL. WBCs elevated at [address] of the chest and abdomen showed New infectious or inflammatory airways disease in the lung bases. Large lesser curvature gastric ulceration without perforation. Background of gastritis. No active gastrointestinal bleeding is seen. Review of Systems Status of ROS: Reports: 6 or more systems reviewed and unremarkable except as noted in History and below Medical Decision Making Medical Decision Making Has patient completed a Health Care Directive: No PFSH PFS Medical History Adenomatous colon polyp ?D12.6 - Benign neoplasm of colon, unspecified (ICD-10) Dermatitis ?L30.9 - Dermatitis, unspecified (ICD-10) Vitamin D deficiency ?E55.9 - Vitamin D deficiency, unspecified (ICD-10) Surgical History Abnormal colonoscopy ?R93.3 - Abnormal findings on diagnostic imaging of other parts of digestive tract (ICD-10) History of hand surgery ?Z98.890 - Other specified postprocedural states (ICD-10) Family History Other Coronary artery disease High cholesterol Stroke Social History Narrative: 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 She doesn't use recreational drugs. Smoking Status: Current every day smoker What tobacco products do you use: cigarettes Smoking packs per day: 1 Smoking cigarettes per day: 20.0 Do you use any of these nicotine containing products: None Second hand tobacco smoke exposure: No How often do you have a drink containing alcohol: 4 or more times a week Alcohol type: wine How many standard drinks containing alcohol do you have on a typical day: 1 or 2 How often do you have six or more drinks on one occasion: Never AUDIT-C Alcohol total score: 4 Non-prescribed substance use: denies use Caffeine: Yes Are you using contraception or practicing any form of control: No service: No Meds Home Medications and Allergies Home Medications ?Medication ?Instructions ?Recorded ?Confirmed ?Type aspirin 81 mg chewable tablet 81 mg PO DAILY 05/19/22 05/20/24 History (Aspirin Childrens) lisinopril 40 mg tablet 40 mg PO DAILY 05/20/24 05/20/24 History amlodipine 5 mg tablet 5 mg PO DAILY 07/02/25 07/02/25 History Allergies Allergy/AdvReac Type Severity Reaction Status Date / Time chlorthalidone Allergy hypokalemia Verified 07/02/25 20:06 erythromycin base (From Allergy Verified 07/02/25 20:06 Erythrocin) hydrochlorothiazide Allergy hyponatremi Verified 07/02/25 20:06 a latex Allergy Verified 07/02/25 20:06 Exam Narrative: Exam Narrative: Physical exam GENERAL: Comfortable, no acute distress. On 2 L oxygen via nasal cannula. HEAD AND NECK: Atraumatic, normocephalic CARDIOVASCULAR: RRR. Normal S1, S2. No murmurs. RESPIRATORY: Clear to auscultation B/L. Good air entry B/L. No wheezes or rhonchi. GASTROINTESTINAL: Soft. tender to palpation diffusely. No rigidity NEUROLOGY: Alert, awake. Normal speech. PSYCH: Normal mood, normal affect. Const: Vital Signs, click to edit/add: Vital Signs - 24 hr 07/02/25 18:21 07/02/25 20:42 07/02/25 21:18 Temperature 97.6 F Pulse Rate 90 Pulse Rate [Pulse Oximeter] 84 Respiratory Rate 24 22 Blood Pressure 137/84 Blood Pressure [Ri ght Upper Arm] 149/80 H Pulse Oximetry 91 86 L 96 Oxygen Delivery Me thod Room Air Nasal Cannula Oxygen Flow Rate 1.5 07/02/25 21:32 07/02/25 21:56 07/02/25 22:02 Temperature Pulse Rate 86 94 88 Pulse Rate [Pulse Oximeter] Respiratory Rate 12 21 19 Blood Pressure 142/88 H 151/90 H 138/80 Blood Pressure [Ri ght Upper Arm] Pulse Oximetry 100 95 96 Oxygen Delivery Me thod Nasal Cannula Nasal Cannula Nasal Cannula Oxygen Flow Rate 1.5 1.5 1.5 Hospitalist - H&P: Result Labs Labs: Short CBC 07/02/25 Range/Units 19:35 WBC 14.06 H (4.50-11.00) K/uL Hgb 9.0 L (12.0-16.0) gm/dL Hct 28.4 L (33.0-51.0) % Plt Count 570 H (140-440) K/uL BMP 07/02/25 19:35 Sodium 124 L* Potassium 3.7 Chloride 90 L Carbon Dioxide 28 BUN 11 Creatinine 0.3 L Glucose 139 H Calcium 9.1 Liver Function 07/02/25 Range/Units 19:35 Total Bilirubin 0.4 (0.1-1.5) mg/dL Direct Bilirubin 0.3 (0.0-0.5) mg/dL AST 49 H (12-35) U/L ALT 10 (4-35) U/L Alkaline Phosphatase 105 (40-150) U/L Albumin 4.3 (3.3-5.0) g/dL Imaging CT Chest/Ab/Pelvis: Radiologist's impression: INDICATION: Stomach pain. COMPARISON: 06/28/2025, 05/19/2022 TECHNIQUE: CT angiogram abdomen and pelvis without and with contrast, GI bleed protocol to include pre-contrast, arterial phase (CT angiography), and portal venous phase imaging. Multiplanar axial, coronal, and sagittal reformats are included. MIP images to improve detection of arterial pathology. Intravenous contrast: 95 ml Omnipaque 350. FINDINGS: Aorta and its branches: Well-timed contrast bolus. Normal caliber of the abdominal aorta. No intramural hematoma. Moderate to heavy atherosclerotic plaques. No penetrating atherosclerotic ulcers. No aortic dissection. The mesenteric vessels are patent without critical stenosis. The common, internal, and external iliac arteries are patent without critical stenosis. The common femoral arteries are patent without critical stenosis. GI: There is some wall thickening with a deep ulceration along the lesser curvature of the stomach. This measures about 2.6 x 1.8 cm on series 5, image 59. No perforation. No active bleeding. The remainder of the stomach is modestly inflamed with some mild wall thickening. No dilated or inflamed small bowel or colon. No active bleeding seen in the small bowel or colon. Moderate stool burden. Diverticulosis. The appendix is not discretely seen. Lung bases: Right worse than left subsolid nodules and distal bronchial wall thickening. Findings are new compared to prior and typical of infectious or inflammatory airways disease. Liver: Normal. No mass. Gallbladder and bile ducts: Normal gallbladder. No bile duct dilation. Pancreas: Normal. Spleen: Normal. Adrenal glands: Normal. Kidneys: Normal parenchyma. There is a small right renal cyst. No calculi. No urinary tract dilation. Urinary bladder: Normal. Pelvis: No cyst or mass. Lymph nodes: Left periaortic soft tissue just below the level of the gastric ulcer is presumably a lymph node and measures 1.5 x 1.0 cm on series 11, image 161. Enlarged aortocaval lymph node measures 1.4 x 1.0 cm on series 5, image 68. Enlarged hyperenhancing gastrohepatic lymph node measures 1.8 x 1.4 cm on series 5, image 37. Peritoneum: No ascites. Abdominal wall: No hernia. BONES: L1 and L2 compression fractures are unchanged compared to the recent comparison examination. No acute fracture. No focal bone lesions. IMPRESSION: 1. Large lesser curvature gastric ulceration without perforation. Background of gastritis. 2. No active gastrointestinal bleeding is seen. 3. Enlarged gastrohepatic and upper retroperitoneal lymph nodes. 4. New infectious or inflammatory airways disease in the lung bases. Please note that all CT scans at this facility use dose modulation, iterative reconstruction, and/or weight-based dosing when appropriate to reduce radiation dose to as low as reasonably achievable. Dictated by Sultana Rubio MD @ 07/02/2025 8:32:14 PM (Electronically Signed)
[2025-07-03] VITALS (13 sets, daily range): BP systolic 103–146; BP diastolic 62–83; PULSE 71–95; RESP 15–20; TEMP 35.7–37.6; O2SAT 88–94
[2025-07-03 06:45] LABS: Hematocrit* 23.9 % (33.0-51.0); Mean Corpuscular HGB Conc 32 gm/dL (32-36); Mean Corpuscular Hemoglobin 31 pg (26-34); Mean Corpuscular Volume 95 fL (80-100); Red Blood Count* 2.52 m/uL (4.00-5.20); White Blood Count* 12.90 K/uL (4.50-11.00)
[2025-07-03 06:53] LABS: Chloride* 96 mmol/L (96-114)
[2025-07-03 06:54] LABS: Albumin* 3.3 g/dL (3.3-5.0); Potassium* 3.0 mmol/L (3.6-5.1); Sodium* 128 mmol/L (135-149)
[2025-07-03 06:56] LABS: Blood Urea Nitrogen* 4 mg/dL (7-30); Creatinine* 0.3 mg/dL (0.5-1.5); Est. Creatinine Clearance* 33.30; Estimated Glomerular Filt Rate 109 ml/min; Hemoglobin* 7.7 gm/dL (12.0-16.0); Slide Review Reflex No
[2025-07-03 06:57] LABS: Alanine Aminotransferase* 8 U/L (4-35); Alkaline Phosphatase* 89 U/L (40-150); Anion Gap 4 mEq/L (7-15); Aspartate Amino Transferase* 19 U/L (12-35); Bilirubin Total* 0.3 mg/dL (0.1-1.5); Calcium* 7.9 mg/dL (8.4-10.6); Carbon Dioxide* 28 mmol/L (20-32); Glucose* 104 mg/dL (60-115); Total Protein* 6.3 g/dL (6.0-8.3)
--- NOTE | 2025-07-03 07:28 | PC.NURSE ---
The patient is pleasant and cooperative with cares, VSS except was slightly hypoxic at the beginning of my shift. In the night I was able to get her on room air at rest. SOB is increased with activity. Up to BR SBA. voiding well, NPO for EGD today. No stools overnight. Need an hpylori sample. No reports of pain. Call light is within reach. Lakeisha FOSTER BSN
[2025-07-03] MEDS: PANTOPRAZOLE SODIUM 40 MG INJ IVP ×2 (09:37→21:47)
[2025-07-03] MEDS: AMLODIPINE 5 MG TABLET PO (09:37)
[2025-07-03] MEDS: DOXYCYCLINE HYCLATE 100 MG PO ×2 (09:37→21:47)
[2025-07-03] MEDS: SODIUM CHLORIDE 0.9 % (FLUSH) 10 ML SYRINGE 5 ML IVF ×2 (09:38→21:47)
[2025-07-03] MEDS: ACETAMINOPHEN 325 MG TABLET 650 MG PO ×2 (09:38→23:02)
[2025-07-03] MEDS: POTASSIUM CHLORIDE 10 MEQ CAPSULE ER 40 MEQ PO (10:25)
[2025-07-03] MEDS: FUROSEMIDE 10 MG/ML inj 20 MG IVP (10:25)
[2025-07-03] MEDS: POTASSIUM CHLORIDE 10 MEQ/100 ML PIGGYBACK 100 MEQ IVPB ×3 (10:26→22:56)
--- NOTE | 2025-07-03 11:56 | P.IMPN_ITS ---
Assessment and Plan Assessment and plan (1) Upper GI bleeding: Problem comment: Outpatient hemoglobin 2 months ago was 14.5. By history her significant blood loss is in the last 5 days with melanotic stools and progressive anemia. This is likely due to bleeding from gastric ulcer noted on CT. Endoscopy pending today. She does not take anticoagulation. She does take ibuprofen at bedtime. Initiate PPI. Not currently obviously bleeding Status: Acute (2) Hyponatremia: Problem comment: Acute on chronic. Overnight sodium improved from 124-128. Likely worse due to gastrointestinal symptoms/bleeding/poor oral intake. Status: Acute (3) Acute hypoxic respiratory failure: Problem comment: hypoxic at 86% O2 sat and was put on 2 L per minute oxygen nasal cannula in the emergency department. Now resolved with O2 sats in the low 90s on room air Likely secondary to pneumonia Ordered troponin and EKG Status: Acute (4) Community acquired pneumonia: Problem comment: WBCs elevated at [address] of the chest and abdomen showed New infectious or inflammatory airways disease in the lung bases. Started ceftriaxone and doxycycline Status: Acute (5) Blood loss anemia: Problem comment: Baseline hemoglobin in clinic is 14.52 months ago. Hemoglobin 4 days ago 8.8. Today 7.7. Drop in hemoglobin may be dilutional due to normal saline infusion overnight. Transfuse 1 unit blood. Continue to monitor for bleeding. Status: Acute Plan Continue in hospital for evaluation and management of upper GI bleeding, blood- loss anemia, hyponatremia, possible pneumonia with hypoxic respiratory failure. Total Time Spent Total Time Spent: Total time spent today is 55 minutes in coordination of care, review of outside records, discussion with patient and other providers ongoing management of these problems. Subjective Date Seen: 07/03/25 Interval history: Donovan Anna is a 79 year old female patient with past medical history of hypertension, chronic hyponatremia, tobacco use disorder who presents to the ED with abdominal pain and weakness. Patient presented to our ED on Sunday, that is 4 days ago for similar symptoms. Patient states that she noticed black stools for the past 5 or 6 days. patient mentioned that she is using ibuprofen 600 mg at bedtime & that she has been taking Tums for heartburn. She also mentioned being sweaty and vomiting on Sunday. patient is an active smoker with cough at baseline that has not been changed recently. She does not have a diagnosis of COPD and has not been treated with bronchodilators in the past. No sick contacts. Had nausea and decreased appetite. She does have a history of adenomatous polyps with her last colonoscopy in April 2022 and recommended repeat in 3 years. In the ED patient was found hemodynamically stable. She was hypoxic at 86% O2 sat and was put on 2 L per minute oxygen nasal cannula. Patient's hemoglobin dropped compared to the level it was in 2023. It use to be 11 g per dL but currently it is around 9. However it is stable because 4 days ago hemoglobin was 8.8 and today it is 9 g/dL. WBCs elevated at [address] of the chest and abdomen showed New infectious or inflammatory airways disease in the lung bases not seen on CT scanning from 4 days ago. Large lesser curvature gastric ulceration without perforation. Background of gastritis. No active gastrointestinal bleeding is seen. She was also noted to have hyponatremia with a sodium of 124. Four days ago her sodium was 125. In clinic her sodium has been running around 133 chronically. 07/03/2025: Patient reports feeling a little better today. Her breathing is better. She has weaned off oxygen and O2 sat is now 90% on room air. She received normal saline overnight. Exam Narrative: Exam Narrative: She is alert and appears in no distress. She gives her own history. Breathing is unlabored on room air. Respirations with somewhat diminished breath sounds but no significant wheezing or prolonged expiratory phase. Cardiovascular: S1, S2, regular rate and rhythm. Abdomen: Bowel sounds active. Abdomen is soft without tenderness or mass. Extremities without edema. Good peripheral perfusion. Const: Vital Signs, click to edit/add: Vital Signs - 24 hr 07/02/25 18:21 07/02/25 20:42 07/02/25 21:18 Temperature 36.4 C Pulse Rate 90 Pulse Rate [Pulse Oximeter] 84 Respiratory Rate 24 22 Blood Pressure 137/84 Blood Pressure [Ri ght Arm] Blood Pressure [Ri ght Upper Arm] 149/80 H Pulse Oximetry 91 86 L 96 Oxygen Delivery Me thod Room Air Nasal Cannula Oxygen Flow Rate 1.5 07/02/25 21:32 07/02/25 21:56 07/02/25 22:02 Temperature Pulse Rate 86 94 88 Pulse Rate [Pulse Oximeter] Respiratory Rate 12 Blood Pressure 142/88 H 151/90 H 138/80 Blood Pressure [Ri ght Arm] Blood Pressure [Ri ght Upper Arm] Pulse Oximetry 100 95 96 Oxygen Delivery Me thod Nasal Cannula Nasal Cannula Nasal Cannula Oxygen Flow Rate 1.5 1.5 1.5 07/02/25 23:00 07/02/25 23:00 07/02/25 23:00 Temperature 36.5 C Pulse Rate Pulse Rate [Pulse Oximeter] 85 Respiratory Rate 18 18 Blood Pressure Blood Pressure [Ri ght Arm] 146/83 H Blood Pressure [Ri ght Upper Arm] Pulse Oximetry 95 95 95 Oxygen Delivery Me thod Nasal Cannula Nasal Cannula Oxygen Flow Rate 1.5 1.5 07/02/25 23:00 07/02/25 23:02 07/02/25 23:02 Temperature 36.5 C Pulse Rate 80 Pulse Rate [Pulse Oximeter] 85 Respiratory Rate 18 18 Blood Pressure Blood Pressure [Ri ght Arm] 146/83 H Blood Pressure [Ri ght Upper Arm] Pulse Oximetry 95 95 Oxygen Delivery Me thod Nasal Cannula Nasal Cannula Oxygen Flow Rate 1.5 1.5 07/02/25 23:45 07/02/25 23:55 07/03/25 03:00 Temperature 36.8 C Pulse Rate Pulse Rate [Pulse Oximeter] 95 Respiratory Rate 20 20 20 Blood Pressure Blood Pressure [Ri ght Arm] 139/81 Blood Pressure [Ri ght Upper Arm] Pulse Oximetry 90 92 Oxygen Delivery Me thod Nasal Cannula Room Air Oxygen Flow Rate 2 07/03/25 05:00 07/03/25 07:00 07/03/25 07:00 Temperature 35.7 C L Pulse Rate 72 Pulse Rate [Pulse Oximeter] 84 Respiratory Rate 15 Blood Pressure Blood Pressure [Ri ght Arm] 129/79 Blood Pressure [Ri ght Upper Arm] Pulse Oximetry 91 92 Oxygen Delivery Me thod Room Air Room Air Oxygen Flow Rate 07/03/25 07:00 07/03/25 11:00 Temperature 36.8 C Pulse Rate Pulse Rate [Pulse Oximeter] 78 Respiratory Rate 15 18 Blood Pressure Blood Pressure [Ri ght Arm] 129/71 Blood Pressure [Ri ght Upper Arm] Pulse Oximetry 92 92 Oxygen Delivery Me thod Room Air Room Air Oxygen Flow Rate Labs Labs: Laboratory Results - last 24 hr 07/02/25 07/02/25 07/02/25 19:35 20:56 23:10 WBC 14.06 H RBC 3.00 L Hgb 9.0 L Hct 28.4 L MCV 95 MCH 30 MCHC 32 RDW Coeff of Betsy 13.0 Plt Count 570 H Neut % (Auto) 86.0 H Lymph % (Auto) 7.0 L Ballard % (Auto) 6.8 Eos % (Auto) 0.0 Baso % (Auto) 0.1 Neut # (Auto) 12.10 H Lymph # (Auto) 1.00 Ballard # (Auto) 1.00 H Eos # (Auto) 0.00 Baso # (Auto) 0.00 Abs Immat Gran (auto) 0.00 Imm/Tot Granulo (auto) 0.1 VBG pH 7.441 H VBG pCO2 45 VBG pO2 < 30.1 VBG HCO3 31 H Sodium 124 L* Potassium 3.7 Chloride 90 L Carbon Dioxide 28 Anion Gap 6 L BUN 11 Creatinine 0.3 L Estimated Creat Clear 33.30 Estimated GFR 109 Glucose 139 H Lactate 0.7 Calcium 9.1 Total Bilirubin 0.4 Direct Bilirubin 0.3 AST 49 H ALT 10 Alkaline Phosphatase 105 Troponin I < 0.01 Total Protein 7.8 Albumin 4.3 Lipase 334 H Ethyl Alcohol < 0.01 SARS-CoV-2 (PCR) Negative SARS-CoV-2 Influenza Type A (PCR) Negative PCR FLU A Influenza Type B (PCR) Negative PCR FLU B RSV (PCR) Negative PCR RSV Blood Type O Negative Antibody Screen NEGATIVE Crossmatch (AHG) See Detail 07/03/25 06:19 WBC 12.90 H RBC 2.52 L Hgb 7.7 L* Hct 23.9 L MCV 95 MCH 31 MCHC 32 RDW Coeff of Betsy Plt Count 478 H Neut % (Auto) Lymph % (Auto) Ballard % (Auto) Eos % (Auto) Baso % (Auto) Neut # (Auto) Lymph # (Auto) Ballard # (Auto) Eos # (Auto) Baso # (Auto) Abs Immat Gran (auto) Imm/Tot Granulo (auto) VBG pH VBG pCO2 VBG pO2 VBG HCO3 Sodium 128 L Potassium 3.0 L Chloride 96 Carbon Dioxide 28 Anion Gap 4 L BUN 4 L Creatinine 0.3 L Estimated Creat Clear 33.30 Estimated GFR 109 Glucose 104 Lactate Calcium 7.9 L Total Bilirubin 0.3 Direct Bilirubin AST 19 ALT 8 Alkaline Phosphatase 89 Troponin I Total Protein 6.3 Albumin 3.3 Lipase Ethyl Alcohol SARS-CoV-2 (PCR) Influenza Type A (PCR) Influenza Type B (PCR) RSV (PCR) Blood Type Antibody Screen Crossmatch (AHG)
--- NOTE | 2025-07-03 12:59 | PC.SOCIAL ---
Social work consult: floor worker well service met with the pt and her daughter today and provided them with information on Health Care Directives and Power of Research Agricultural Engineer. Pt and her daughter were thankful for the information and had no further questions for this worker. floor worker well service did share that there was a notary on staff until 4:30pm today if they were interested in getting the forms completed today. Social work to follow-up as needed.
--- NOTE | 2025-07-03 15:01 | P.ANES_ITS ---
Anesthesia Charges Start Date/Time Anesthesia Start Date: 07/03/25 Anesthesia Start Time: 14:43 Stop Date/Time Anesthesia Stop Date: 07/03/25 Anesthesia Stop Time: 15:18 Summary Emergency: MDA Extremes of Age - Over 70 or under 1: MDA Coding CPT Codes CPT Codes: ANES UPR GI NDSC PX NOS - 36629 ([id number]) P3 - PATIENT W/SEVERE SYS DISEASE, QK - ASSISTANT CHIEF OF POLICE 2-4 CNCRNT ANES PROC, QX - MANDARIN TUTOR SVC W/ MD MED DIRECTION Additional Codes: Summary - Emergency: MDA ([id number]) Summary - Extremes of Age - Over 70 or under 1: MDA ([id number])
--- NOTE | 2025-07-03 15:01 | W.ANESCHARGE ---
Anesthesia Charges Start Date/Time Anesthesia Start Date: 07/03/25 Anesthesia Start Time: 14:43 Stop Date/Time Anesthesia Stop Date: 07/03/25 Anesthesia Stop Time: 15:18 Summary Emergency: MDA Extremes of Age - Over 70 or under 1: MDA Coding CPT Codes CPT Codes: ANES UPR GI NDSC PX NOS - 03345 ([id number]) P3 - PATIENT W/SEVERE SYS DISEASE, QK - DIRECTOR PEDIATRIC 2-4 CNCRNT ANES PROC, QX - HAND MIXER SVC W/ MD MED DIRECTION Additional Codes: Summary - Emergency: MDA ([id number]) Summary - Extremes of Age - Over 70 or under 1: MDA ([id number])
--- NOTE | 2025-07-03 15:21 | P.ANES_ITS ---
Anesthesia Charges Start Date/Time Anesthesia Start Date: 07/03/25 Anesthesia Start Time: 14:43 Stop Date/Time Anesthesia Stop Date: 07/03/25 Anesthesia Stop Time: 15:18 Summary Emergency: RESEARCH ANIMAL ATTENDANT Extremes of Age - Over 70 or under 1: RESEARCH ANIMAL ATTENDANT Coding CPT Codes CPT Codes: ANES UPR GI NDSC PX NOS - 15872 ([id number]) P3 - PATIENT W/SEVERE SYS DISEASE, QK - WASTE PICKER 2-4 CNCRNT ANES PROC, QX - RESEARCH ANIMAL ATTENDANT SVC W/ MD MED DIRECTION Additional Codes: Summary - Emergency: RESEARCH ANIMAL ATTENDANT ([id number]) Summary - Extremes of Age - Over 70 or under 1: RESEARCH ANIMAL ATTENDANT ([id number])
--- NOTE | 2025-07-03 15:21 | W.ANESCHARGE ---
Anesthesia Charges Start Date/Time Anesthesia Start Date: 07/03/25 Anesthesia Start Time: 14:43 Stop Date/Time Anesthesia Stop Date: 07/03/25 Anesthesia Stop Time: 15:18 Summary Emergency: POLITICAL CARTOONIST Extremes of Age - Over 70 or under 1: POLITICAL CARTOONIST Coding CPT Codes CPT Codes: ANES UPR GI NDSC PX NOS - 94998 ([id number]) P3 - PATIENT W/SEVERE SYS DISEASE, QK - PIECE DYE WORKER 2-4 CNCRNT ANES PROC, QX - POLITICAL CARTOONIST SVC W/ MD MED DIRECTION Additional Codes: Summary - Emergency: POLITICAL CARTOONIST ([id number]) Summary - Extremes of Age - Over 70 or under 1: POLITICAL CARTOONIST ([id number])
[2025-07-03 18:34] LABS: H pylori Ag Stool* Negative (Negative)
--- NOTE | 2025-07-03 18:51 | PC.NURSE ---
End of shift report [id number]: Pleasant and cooperative with cares. Pain reported to abdomen and headache, discomfort well managed with tylenol. Bowel sounds active x 4, passing flatus. NPO until EGD. 1 unit PRBC started at 1225, patient left for EGD at 1330 and transfusion completed during procedure. Post transfusion vitals charted. Clear liquid diet post EGD per Dr. Kaplan, tolerated broth and jello. Stool sample collected. Transfer with SBA and ambulates using furniture for walking.
[2025-07-03 19:11] LABS: Hemoglobin* 8.7 gm/dL (12.0-16.0)
[2025-07-03 19:49] LABS: Chloride* 95 mmol/L (96-114)
[2025-07-03 19:50] LABS: Potassium* 3.5 mmol/L (3.6-5.1); Sodium* 127 mmol/L (135-149)
[2025-07-03 19:52] LABS: Blood Urea Nitrogen* 5 mg/dL (7-30); Creatinine* 0.3 mg/dL (0.5-1.5); Est. Creatinine Clearance* 33.30; Estimated Glomerular Filt Rate 109 ml/min
[2025-07-03 19:53] LABS: Anion Gap 5 mEq/L (7-15); Calcium* 7.9 mg/dL (8.4-10.6); Carbon Dioxide* 27 mmol/L (20-32); Glucose* 159 mg/dL (60-115)
[2025-07-03] MEDS: cefTRIAXone 1 GM in 0.9 % SODIUM CHLORIDE Mini-bag 100 ML IVPB (21:47)
[2025-07-04] MEDS: POTASSIUM CHLORIDE 10 MEQ/100 ML PIGGYBACK 100 MEQ IVPB (00:05)
[2025-07-04 00:06] VITALS: BP 130/77; PULSE 71; RESP 16; TEMP 36.8; O2SAT 89
[2025-07-04 02:42] VITALS: BP 114/62; PULSE 69; RESP 16; TEMP 36.4; O2SAT 96
[2025-07-04] MEDS: ACETAMINOPHEN 325 MG TABLET 650 MG PO (05:46)
[2025-07-04 06:18] LABS: Hematocrit* 29.1 % (33.0-51.0); Hemoglobin* 9.6 gm/dL (12.0-16.0); Mean Corpuscular HGB Conc 33 gm/dL (32-36); Mean Corpuscular Hemoglobin 29 pg (26-34); Mean Corpuscular Volume 88 fL (80-100); Red Blood Count* 3.32 m/uL (4.00-5.20); White Blood Count* 12.16 K/uL (4.50-11.00)
[2025-07-04 06:26] LABS: Slide Review Reflex No
[2025-07-04] MEDS: OMEPRAZOLE 20 MG CAPSULE DR PO (06:27)
[2025-07-04 06:34] LABS: Chloride* 96 mmol/L (96-114); Potassium* 3.9 mmol/L (3.6-5.1); Sodium* 126 mmol/L (135-149)
[2025-07-04 06:37] LABS: Anion Gap 4 mEq/L (7-15); Blood Urea Nitrogen* 4 mg/dL (7-30); Calcium* 8.4 mg/dL (8.4-10.6); Carbon Dioxide* 26 mmol/L (20-32); Creatinine* 0.4 mg/dL (0.5-1.5); Est. Creatinine Clearance* 33.30; Estimated Glomerular Filt Rate 101 ml/min; Glucose* 83 mg/dL (60-115)
--- NOTE | 2025-07-04 06:43 | PC.NURSE ---
End of shift:?Pt pleasant,?alert?and oriented. Tele reads?NSR. Exp wheeze heard in bilateral lower bases.?Pt has?cough?with some sputum production per pt.?Pt?stated?SOB with exacerbation. O2 sats drop to 80-83% with?exertion,?recovers?within?5 mins to 88-92%. O2 sats drop to low 80s when asleep, 1L o2 placed and pt maintained sats of low 90s.?Otherwise, VSS.?Pt?stated?some pain, tolerated with prn?Tylenol. Moves with?SBA.?Pt in bed, appears to be resting, call light within reach.??
[2025-07-04 07:00] VITALS: BP 123/60; PULSE 69; PULSE 73; RESP 16; RESP 18; TEMP 36.4; O2SAT 92
[2025-07-04] MEDS: DOXYCYCLINE HYCLATE 100 MG PO (08:45)
[2025-07-04] MEDS: AMLODIPINE 5 MG TABLET PO (08:45)
[2025-07-04] MEDS: SODIUM CHLORIDE 1 GM TABLET PO (08:46)
--- NOTE | 2025-07-04 08:55 | CRLHL7_ITS ---
For Patients: As a result of the Cures Act, medical imaging exams and procedure reports are released immediately into your electronic medical record. You may view this report before your referring provider. If you have questions, please contact your health care provider. INDICATION: Pneumonia. Follow-up. TECHNIQUE: PA and lateral chest x-ray. COMPARISON: Correlation is made with a chest CT June 28, 2025. FINDINGS: Both lungs are slightly hyperinflated but clear. Widened AP diameter on the lateral view. Normal heart size. Tortuous thoracic aorta. No pneumothorax. No pleural effusion. Old compression fracture deformities of T6, T10, and L1 seen previously on the chest CT. Thoracolumbar scoliosis. Skeletal demineralization. Degenerative change of the shoulders. IMPRESSION: No acute cardiopulmonary process identified. No evidence for active pneumonia. Dictated by Rome Arthur MD @ 07/05/2025 7:43:18 PM (Electronically Signed)
--- NOTE | 2025-07-04 09:05 | P.DS_ITS ---
DS: Providers Provider Date Seen: 07/04/25 Date of admission: 07/02/25 22:55 Primary care physician: Dahiana Rosas MD Admitting Clinician: Lori Medina MD Consults: 07/02/25 23:39 Consult to Rn Family [CONS] Routine Comment: Reason for Consult:: PT Requests Adv Dir Info Attending Physician on discharge: Comfort Richardson MD [facility] Date of Discharge: 07/04/25 DS: Diagnosis Discharge Diagnosis (1) Acute upper gastrointestinal bleeding: Status: Acute Problem details: -Endoscopy on 07/03/25: 20 mm cratered gastric ulcer on posterior wall of stomach; nonbleeding. bx pending at discharge. -oral PPI BID -sarbjit hgb 7.7, 1 unit PRBCs, discharge hbg 9.6. baseline 14. -avoid all nsaids and aspirin (2) Blood loss anemia: Status: Acute Problem details: as in #1, source gastric ulcer transfused 1 unit (3) Peptic ulcer disease: Status: Acute Problem details: 20 mm cratered gastric ulcer on posterior wall of stomach; nonbleeding. bx pending at discharge. neg H pylori Ag on 07/03 PPI on discharge (4) Acute hypoxic respiratory failure: Status: Acute Problem details: -imaging neg at admission for pneumonia, later identifed on f/u imaging -rec'd rocephin and doxy. discharged on five days of levaquin -CXR on discharge -dependent on oxygen intermittently while inpatient. not discharged on oxygen. (5) Community acquired pneumonia: Status: Acute Problem details: elevated WBC, mild hypoxia New infectious or inflammatory airways disease in the lung bases on abd/pelvic imaging CXR: discharged on levaquin 500 for five days (6) Hyponatremia: Status: Acute Problem details: Acute on chronic. baseline 129-130 discharge 126; sarbjit was 124. d/c on sodium tabs; f/u with PCP Likely worse due to gastrointestinal symptoms/bleeding/poor oral intake. (7) Smoker: Status: Acute Problem details: Active smoker (8) Hypertension: Status: Chronic DS: Summary Hospital Course Hospital Course: HIGH YIELD CARE NOTES FOR FOLLOW-UP BRIEF HOSPITAL COURSE: Patient was admitted for days. Synopsis of acute inpatient issues are outlined above. Chronic medical conditions with notable findings outlined above. DISCHARGE MEDICATIONS: See Reconciled list - SIGNIFICANT CHANGES: Specific instructions to the patient and follow-up are outlined below. REVIEW OF SYSTEMS No new chest pain or dyspnea Pain controlled No voiding difficulties Tolerating diet challenge PHYSICAL EXAM: CONSTITUTIONAL: Conversive, good historian. A/O. Knows setting and context. GENERAL: Well-developed, in no respiratory distress. VITAL SIGNS: see record. HEENT: Sclerae are anicteric. No petechiae. CARDIAC: rhythm is regular. There is no S3 or rub. No harsh murmurs. Extremities show trace edema with symmetrical pulses. PULM: good air entry with no wheeze. NEURO: Speech is fluent. A brief neurologic exam is negative. SKIN: No rashes, petechiae, concerning changes PSYCHIATRIC: Euthymic. DISPOSITION: Time spent on discharge 37 minutes. Status at Discharge Functional status at discharge: independent ambulation Overall status at discharge: patient is progressing back to baseline Time Spent with Patient Time attestation: Total time spent providing and/or coordinating discharge services: Time spent: Greater than 30 minutes Exam Const: Vital Signs, click to edit/add: Vital Signs - 24 hr 07/03/25 11:00 07/03/25 12:26 07/03/25 12:41 Temperature 98.2 F 97.8 F 97.9 F Pulse Rate 82 82 Pulse Rate [Pulse Oximeter] 78 Respiratory Rate 18 18 18 Blood Pressure 127/78 131/80 Blood Pressure [Ri ght Arm] 129/71 Pulse Oximetry 92 92 92 Oxygen Delivery Me thod Room Air Room Air Room Air Oxygen Flow Rate 07/03/25 12:45 07/03/25 13:15 07/03/25 13:45 Temperature 99.6 F 98.6 F Pulse Rate 79 72 74 Pulse Rate [Pulse Oximeter] Respiratory Rate 16 16 16 Blood Pressure 127/74 126/78 103/62 Blood Pressure [Ri ght Arm] Pulse Oximetry 93 94 90 Oxygen Delivery Me thod Room Air Oxygen Flow Rate 07/03/25 15:00 07/03/25 15:00 07/03/25 15:00 Temperature Pulse Rate 80 Pulse Rate [Pulse Oximeter] 80 Respiratory Rate 16 16 Blood Pressure Blood Pressure [Ri ght Arm] Pulse Oximetry 91 Oxygen Delivery Me thod Room Air Oxygen Flow Rate 07/03/25 16:15 07/03/25 19:45 07/03/25 23:00 Temperature 98.1 F 98.0 F Pulse Rate 81 84 Pulse Rate [Pulse Oximeter] 79 Respiratory Rate 18 18 Blood Pressure 141/83 H Blood Pressure [Ri ght Arm] 146/76 H Pulse Oximetry 92 88 Oxygen Delivery Me thod Room Air Room Air Oxygen Flow Rate 07/03/25 23:00 07/03/25 23:00 07/03/25 23:00 Temperature Pulse Rate Pulse Rate [Pulse Oximeter] 71 Respiratory Rate 16 Blood Pressure Blood Pressure [Ri ght Arm] Pulse Oximetry 89 90 Oxygen Delivery Me thod Room Air Oxygen Flow Rate 07/04/25 00:06 07/04/25 02:42 07/04/25 07:00 Temperature 98.3 F 97.6 F Pulse Rate Pulse Rate [Pulse Oximeter] 71 69 69 Respiratory Rate 16 16 16 Blood Pressure Blood Pressure [Ri ght Arm] 130/77 114/62 Pulse Oximetry 89 96 Oxygen Delivery Me thod Room Air Nasal Cannula Oxygen Flow Rate 1 07/04/25 07:00 07/04/25 07:00 Temperature 97.6 F Pulse Rate Pulse Rate [Pulse Oximeter] 69 Respiratory Rate 18 18 Blood Pressure Blood Pressure [Ri ght Arm] 123/60 Pulse Oximetry 92 92 Oxygen Delivery Me thod Room Air Room Air Oxygen Flow Rate DS: Data Data Completed and Pending Labs on day of discharge: Labs from last 24 hours 07/04/25 07/03/25 07/03/25 05:51 19:03 18:00 WBC 12.16 H RBC 3.32 L Hgb 9.6 L 8.7 L Hct 29.1 L MCV 88 MCH 29 MCHC 33 Plt Count 478 H Sodium 126 L 127 L Potassium 3.9 3.5 L Chloride 96 95 L Carbon Dioxide 26 27 Anion Gap 4 L 5 L BUN 4 L 5 L Creatinine 0.4 L 0.3 L Estimated Creat Clear 33.30 33.30 Estimated GFR 101 109 Glucose 83 159 H Calcium 8.4 7.9 L Magnesium 1.8 Stool H. pylori Ag Negative Blood Type Antibody Screen Crossmatch ([facility]) 07/02/25 19:35 WBC RBC Hgb Hct MCV MCH MCHC Plt Count Sodium Potassium Chloride Carbon Dioxide Anion Gap BUN Creatinine Estimated Creat Clear Estimated GFR Glucose Calcium Magnesium Stool H. pylori Ag Blood Type O Negative Antibody Screen NEGATIVE Crossmatch ([facility]) See Detail Preliminary micro results at discharge 07/02/25 20:50 Blood Culture - Preliminary Blood NO GROWTH AFTER 24 HOURS 07/02/25 21:03 Blood Culture - Preliminary Blood NO GROWTH AFTER 24 HOURS Discharge Plan Discharge Disposition: Home, Self-Care Date of Admission: 07/02/25 22:55 Attending Provider on Discharge: Comfort Richardson Primary Care Provider: Dahiana Rosas Condition: Improved Anticipated Discharge Date/Time: 07/04/25 10:00 Discharge Medications: New levofloxacin 500 mg tablet 500 mg PO DAILY 5 Days Qty: 5 0RF sodium chloride 1,000 mg tablet,soluble 1,000 mg PO BID Qty: 30 0RF omeprazole 20 mg capsule,delayed release(DR/EC) 20 mg PO BID Qty: 60 2RF Continued lisinopril 40 mg tablet 40 mg PO DAILY amlodipine 5 mg tablet 5 mg PO DAILY Discontinued aspirin [Aspirin Childrens] 81 mg tablet,chewable 81 mg PO DAILY ibuprofen [Addaprin] 200 mg tablet 600 mg PO HS Discharge Orders: Discharge Order (Routine); Ordered 07/04/25 Ordered By: Comfort Richardson Patient Education: Peptic Ulcer (GEN), Diet for Stomach Ulcers and Gastritis (GEN) Additional Instructions: 1. Avoid all NSAIDs (Non-Steroidal Anti Inflammatory Drugs) AND Aspirin: This includes Oscar, ibuprofen, Motrin, Naprosyn, Aleve, Advil. They will increase the chances your ulcer will rebleed and heal more slowly. 2. Take the omeprazole on an empty stomach (this means 90 mins to 2 hours since last meal) twice a day 3. Finish five days of antibiotic 4. Take the salt tabs twice a day, see your PCP for a f/u lab on your electrolytes. Activity Level: Activity as Tolerated Discharge Diet: Regular Follow Up Appointments: Dahiana Rosas MD [Primary Care Provider, Family Practice] - 07/10/25 9:30 am Referral Note: [facility] for follow up with Dr. Bazan. PCP was unavailable in the desired timeframe. Should have a BMP (lab visit) discussed at this appointment. Forms: [employer] Info Instructions
--- NOTE | 2025-07-04 11:05 | PC.NURSE ---
End of shift report [id number]: Pleasant and cooperative with cares. Denies any pain this shift. Denies any nausea or vomiting. Diet advanced to regular and patient tolerating well. Discharge education reviewed and patient assisted to personal vehicle via wheelchair. Patient did request change of pharmacy from [facility] to [facility] in [place]. Prescriptions called into [facility] by Lennie FOSTER.
== END 2025-07-04 11:05 | disposition home or self-care (01) | DRG 377 ==
LOC: ED 22:09 → MEDSURG 22:57
PROVIDERS: Family Medicine; Admitting Provider Student in an Organized Health Care Education/Training Program; Emergency Provider Emergency Medicine; PCP Family Medicine; Visit Provider Student in an Organized Health Care Education/Training Program
DX: K25.0 Acute gastric ulcer with hemorrhage (principal); J18.9 Pneumonia, unspecified organism; J96.01 Acute respiratory failure with hypoxia; E87.1 Hypo-osmolality and hyponatremia; D62 Acute posthemorrhagic anemia; K44.9 Diaphragmatic hernia without obstruction or gangrene; I10 Essential (primary) hypertension; D75.839 Thrombocytosis, unspecified; J44.9 Chronic obstructive pulmonary disease, unspecified; F17.210 Nicotine dependence, cigarettes, uncomplicated; K31.A19 Gastric intestinal metaplasia without dysplasia, unspecified site; K29.70 Gastritis, unspecified, without bleeding; B96.81 Helicobacter pylori [H. pylori] as the cause of diseases classified elsewhere
CPT/HCPCS: 00731; 36415; 36430; 43239; 71046; 74174; 80048; 80053; 80076; 82077; 82803; 83605; 83690; 83735; 84484; 85018; 85025; 85027; 86850; 86900; 86901; 86922; 87040; 87338; 87631; 93005; 94761; 99100; 99140; 99285; A9270; J0696; J1938; J2371; J2470; J2704; J3480; J3490; J7030; P9016; Q9967